=== PATIENT | female | born 1935 | race Caucasian/White ===

== ENCOUNTER → 2018-03-16 | Outpatient (CLI) | payer MEDICARE, BC ==
--- NOTE | 2018-03-16 22:27 | XR ---
EXAMINATION TYPE: XR chest 2V DATE OF EXAM: 03/16/2018 COMPARISON: Chest x-ray November 05, 2013 HISTORY: Extended care facility placement. TECHNIQUE: Frontal and lateral views of the chest are obtained. FINDINGS: There is no focal air space opacity, pleural effusion, or pneumothorax seen. The cardiac silhouette size is stable and enlarged with atherosclerotic change in the aortic knob. The osseous structures are intact. Cholecystectomy clips are redemonstrated on lateral view. IMPRESSION: Cardiomegaly without acute pulmonary process. No significant change from prior study.
== END | disposition home or self-care (01) ==
LOC: RADXRMAIN 16:15
PROVIDERS: ATTEND Family Medicine
DX: Z01.818 Encounter for other preprocedural examination (principal); I51.7 Cardiomegaly
CPT/HCPCS: 71046

== ENCOUNTER 2018-04-09 13:27 | Inpatient (IN) | payer MEDICARE, BC ==
--- NOTE | 2018-04-09 13:35 | ED ---
Altered Mental Status HPI - General Stated Complaint: Poss Sepsis Time Seen by Provider: 04/09/18 13:27 Source: EMS, RN notes reviewed, old records reviewed Mode of arrival: EMS - History of Present Illness Initial Comments: This is a 83-year-old female was brought in by ambulance [facility] a [facility] for evaluation for decreased level of consciousness elevated white blood cell count and low-grade fever. She is new to the nursing facility is unclear what the original problem was at brought her to the [facility]. She does have a history of hypertension history of intercerebral bleed atrial fibrillation chronic renal disease and dementia with a normal mentation. No other information currently available per paramedics she was found to be dyspneic into updrafts was given 125 a slight Medrol. She was also given some IV fluids. MD Complaint: altered mental status, decreased responsiveness - Related Data Home Medications Medication Instructions Recorded Confirmed Metoprolol Tartrate [Lopressor] 25 mg PO BID 11/05/13 04/09/18 ALPRAZolam [Xanax] 0.25 mg PO DAILY PRN 04/09/18 04/09/18 Acetaminophen Tab [Tylenol Tab] 650 mg PO Q6H PRN MDD 3 GRAMS 04/09/18 04/09/18 Amoxicillin/Potassium Clav 1 tab PO Q12HR 04/09/18 04/09/18 [Augmentin 875-125 Tablet] Cholecalciferol [Vitamin D3] 2,000 unit PO HS 04/09/18 04/09/18 Cyanocobalamin (Vitamin B-12) 1,000 mcg PO HS 04/09/18 04/09/18 [Vitamin B-12] Donepezil [Aricept] 10 mg PO HS 04/09/18 04/09/18 Ipratropium-Albuterol Nebulize 3 ml INHALATION RT-Q4H 04/09/18 04/09/18 [Duoneb 0.5 mg-3 mg/3 ml Soln] Losartan Potassium 50 mg PO BID 04/09/18 04/09/18 Melatonin 3 mg PO HS 04/09/18 04/09/18 amLODIPine [Norvasc] 10 mg PO DAILY 04/09/18 04/09/18 cefTRIAXone [Rocephin] 1,000 mg IM ONCE 04/09/18 04/09/18 Allergies Allergy/AdvReac Type Severity Reaction Status Date / Time ciprofloxacin [From Cipro] Allergy Unknown Verified 04/09/18 13:37 memantine [From Namenda] Allergy Unknown Verified 04/09/18 13:37 metronidazole [From Flagyl] Allergy Unknown Verified 04/09/18 13:37 Review of Systems ROS Statement: Those systems with pertinent positive or pertinent negative responses have been documented in the HPI. ROS Other: All systems not noted in ROS Statement are negative. Limitations: ROS unobtainable due to patients medical condition Past Medical History Past Medical History: CVA/TIA, Hypertension, Sleep Apnea/CPAP/BIPAP Additional Past Medical History / Comment(s): BELLS PALSY, History of Any Multi-Drug Resistant Organisms: None Reported Past Surgical History: Appendectomy, Cholecystectomy, Hysterectomy, Orthopedic Surgery, Tonsillectomy Additional Past Surgical History / Comment(s): D&C, CATARACT Smoking Status: Never smoker Past Alcohol Use History: None Reported Past Drug Use History: None Reported General Exam - General Exam Comments Initial Comments: This a well-developed asthenic appearing female who does appear pale General appearance: alert, lethargic Head exam: Present: atraumatic, normocephalic, normal inspection Eye exam: Present: other (Left pupil is irregular compared to the right) ENT exam: Present: mucous membranes dry Neck exam: Present: normal inspection. Absent: tenderness, meningismus, lymphadenopathy Respiratory exam: Present: wheezes, decreased breath sounds (Transmitted upper airway sounds) Cardiovascular Exam: Present: regular rate, normal rhythm GI/Abdominal exam: Present: soft, normal bowel sounds. Absent: distended, tenderness, guarding, rebound, rigid Rectal exam: Present: deferred Extremities exam: Present: full ROM, other (Sluggish capillary refill). Absent : pedal edema Back exam: Present: normal inspection Neurological exam: Present: altered, CN II-XII intact Psychiatric exam: Present: other (Unable to evaluate) Skin exam: Present: pallor Course Vital Signs 04/09/18 04/09/18 04/09/18 13:28 14:00 14:15 Temperature 97 F L Pulse Rate 73 62 Respiratory 22 24 20 Rate Blood Pressure 120/83 100/44 O2 Sat by Pulse 100 100 Oximetry 04/09/18 04/09/18 04/09/18 14:50 15:20 16:21 Temperature Pulse Rate 64 64 78 Respiratory 22 20 18 Rate Blood Pressure 104/49 99/58 137/60 O2 Sat by Pulse 99 99 99 Oximetry - Reevaluation(s) Reevaluation #1: 04/09/18 17:04 Reevaluation patient reveals no change I did have several long discussions the patient's and daughter regarding the findings. She was recently admitted to a [facility] and discharged to the [facility] the past several days. She had some renal insufficiency as the time. Apparently his numbers have improved the. Reevaluation #2: 04/09/18 17:05 EKG shows sinus rhythm first-degree AV block with PACs rate was 74 CO interval 226 QRS duration 174 QT since QTC 442/490 left exodeviation left bundle-branch block Medical Decision Making - Medical Decision Making I did discuss findings with the patient's and daughter patient does have a history of severe dementia she is noted have kidney failure with a creatinine 5.37 leukocytosis with a 65.5 white count BNP of 40,200 troponin 0.181D acid 4.8 no clear source of infectious process at this time though there is some white blood cell and bacteria findings the urine. I did discuss case with Dr. Lawson patient will be admitted consultation will be made nephrology patient has maintained heart rate and blood pressure a elevated lactic acid is likely secondary to the kidney failure - Lab Data Result diagrams: 04/09/18 13:32 04/09/18 13:32 Lab Results 04/09/18 04/09/18 04/09/18 Range/Units 13:29 13:32 13:32 WBC (3.8-10.6) k/uL RBC (3.80-5.40) m/uL Hgb (11.4-16.0) gm/dL Hct (34.0-46.0) % MCV (80.0-100.0) fL MCH (25.0-35.0) pg MCHC (31.0-37.0) g/dL RDW (11.5-15.5) % Plt Count (150-450) k/uL Neutrophils % (Manual) % Band Neutrophils % % Lymphocytes % (Manual) % Monocytes % (Manual) % Metamyelocytes % % Myelocytes % % Neutrophils # (Manual) (1.3-7.7) k/uL Lymphocytes # (Manual) (1.0-4.8) k/uL Monocytes # (Manual) (0-1.0) k/uL Metamyelocytes # (Man) (0) k/uL Myelocytes # (Manual) (0) k/uL Nucleated RBCs (0-0) /100 WBC Manual Slide Review Toxic Granulation Toxic Vacuolation Dohle Bodies Anisocytosis Macrocytosis Sodium (137-145) mmol/L Potassium (3.5-5.1) mmol/L Chloride (98-107) mmol/L Carbon Dioxide (22-30) mmol/L Anion Gap mmol/L BUN (7-17) mg/dL Creatinine (0.52-1.04) mg/dL Est GFR (CKD-EPI)AfAm (>60 ml/min/1.73 sqM) Est GFR (CKD-EPI)NonAf (>60 ml/min/1.73 sqM) Glucose (74-99) mg/dL POC Glucose (mg/dL) 73 L (75-99) mg/dL POC Glu Shirt Bander ID Catrachito So Plasma Lactic Acid Lavon (0.7-2.0) mmol/L Calcium (8.4-10.2) mg/dL Magnesium (1.6-2.3) mg/dL Total Bilirubin (0.2-1.3) mg/dL AST (14-36) U/L ALT (9-52) U/L Alkaline Phosphatase (38-126) U/L Ammonia 9 (<30) umol/L Total Creatine Kinase (30-135) U/L CK-MB (CK-2) (0.0-2.4) ng/mL CK-MB (CK-2) Rel Index Troponin I (0.000-0.034) ng/mL NT-Pro-B Natriuret Pep 57884 pg/mL Total Protein (6.3-8.2) g/dL Albumin (3.5-5.0) g/dL Amylase (30-110) U/L Lipase (23-300) U/L Urine Color Urine Appearance (Clear) Urine pH (5.0-8.0) Ur Specific [place] (1.001-1.035) Urine Protein (Negative) Urine Glucose (UA) (Negative) Urine Ketones (Negative) Urine Blood (Negative) Urine Nitrite (Negative) Urine Bilirubin (Negative) Urine Urobilinogen (<2.0) mg/dL Ur Leukocyte Esterase (Negative) Urine RBC (0-5) /hpf Urine WBC (0-5) /hpf Urine WBC Clumps (None) /hpf Ur Squamous Epith Cells (0-4) /hpf Urine Bacteria (None) /hpf Urine Mucus (None) /hpf Influenza Type A RNA (Not Detectd) Influenza Type B (PCR) (Not Detectd) 04/09/18 04/09/18 04/09/18 Range/Units 13:32 13:32 13:32 WBC 68.5 H* (3.8-10.6) k/uL RBC 3.53 L (3.80-5.40) m/uL Hgb 10.8 L (11.4-16.0) gm/dL Hct 34.9 (34.0-46.0) % MCV 98.9 (80.0-100.0) fL MCH 30.7 (25.0-35.0) pg MCHC 31.1 (31.0-37.0) g/dL RDW 16.9 H (11.5-15.5) % Plt Count 261 (150-450) k/uL Neutrophils % (Manual) 64 % Band Neutrophils % 13 % Lymphocytes % (Manual) 2 % Monocytes % (Manual) 7 % Metamyelocytes % 10 % Myelocytes % 7 % Neutrophils # (Manual) 52.70 H (1.3-7.7) k/uL Lymphocytes # (Manual) 1.37 (1.0-4.8) k/uL Monocytes # (Manual) 4.80 H (0-1.0) k/uL Metamyelocytes # (Man) 6.85 H (0) k/uL Myelocytes # (Manual) 4.80 H (0) k/uL Nucleated RBCs 0 (0-0) /100 WBC Manual Slide Review Performed Toxic Granulation Present Toxic Vacuolation Present Dohle Bodies Present Anisocytosis Slight Macrocytosis Slight Sodium 142 (137-145) mmol/L Potassium 4.2 (3.5-5.1) mmol/L Chloride 108 H (98-107) mmol/L Carbon Dioxide 16 L (22-30) mmol/L Anion Gap 18 mmol/L BUN 76 H (7-17) mg/dL Creatinine 5.37 H (0.52-1.04) mg/dL Est GFR (CKD-EPI)AfAm 8 (>60 ml/min/1.73 sqM) Est GFR (CKD-EPI)NonAf 7 (>60 ml/min/1.73 sqM) Glucose 115 H (74-99) mg/dL POC Glucose (mg/dL) (75-99) mg/dL POC Glu Shirt Bander ID Plasma Lactic Acid Lavon (0.7-2.0) mmol/L Calcium 8.3 L (8.4-10.2) mg/dL Magnesium 1.9 (1.6-2.3) mg/dL Total Bilirubin 3.0 H (0.2-1.3) mg/dL AST 78 H (14-36) U/L ALT 86 H (9-52) U/L Alkaline Phosphatase 132 H (38-126) U/L Ammonia (<30) umol/L Total Creatine Kinase 251 H (30-135) U/L CK-MB (CK-2) 5.0 H (0.0-2.4) ng/mL CK-MB (CK-2) Rel Index 2.0 Troponin I 0.181 H* (0.000-0.034) ng/mL NT-Pro-B Natriuret Pep pg/mL Total Protein 5.8 L (6.3-8.2) g/dL Albumin 3.1 L (3.5-5.0) g/dL Amylase 70 (30-110) U/L Lipase 65 (23-300) U/L Urine Color Urine Appearance (Clear) Urine pH (5.0-8.0) Ur Specific [place] (1.001-1.035) Urine Protein (Negative) Urine Glucose (UA) (Negative) Urine Ketones (Negative) Urine Blood (Negative) Urine Nitrite (Negative) Urine Bilirubin (Negative) Urine Urobilinogen (<2.0) mg/dL Ur Leukocyte Esterase (Negative) Urine RBC (0-5) /hpf Urine WBC (0-5) /hpf Urine WBC Clumps (None) /hpf Ur Squamous Epith Cells (0-4) /hpf Urine Bacteria (None) /hpf Urine Mucus (None) /hpf Influenza Type A RNA (Not Detectd) Influenza Type B (PCR) (Not Detectd) 04/09/18 04/09/18 04/09/18 Range/Units 13:32 13:32 13:32 WBC (3.8-10.6) k/uL RBC (3.80-5.40) m/uL Hgb (11.4-16.0) gm/dL Hct (34.0-46.0) % MCV (80.0-100.0) fL MCH (25.0-35.0) pg MCHC (31.0-37.0) g/dL RDW (11.5-15.5) % Plt Count (150-450) k/uL Neutrophils % (Manual) % Band Neutrophils % % Lymphocytes % (Manual) % Monocytes % (Manual) % Metamyelocytes % % Myelocytes % % Neutrophils # (Manual) (1.3-7.7) k/uL Lymphocytes # (Manual) (1.0-4.8) k/uL Monocytes # (Manual) (0-1.0) k/uL Metamyelocytes # (Man) (0) k/uL Myelocytes # (Manual) (0) k/uL Nucleated RBCs (0-0) /100 WBC Manual Slide Review Toxic Granulation Toxic Vacuolation Dohle Bodies Anisocytosis Macrocytosis Sodium (137-145) mmol/L Potassium (3.5-5.1) mmol/L Chloride (98-107) mmol/L Carbon Dioxide (22-30) mmol/L Anion Gap mmol/L BUN (7-17) mg/dL Creatinine (0.52-1.04) mg/dL Est GFR (CKD-EPI)AfAm (>60 ml/min/1.73 sqM) Est GFR (CKD-EPI)NonAf (>60 ml/min/1.73 sqM) Glucose (74-99) mg/dL POC Glucose (mg/dL) (75-99) mg/dL POC Glu Shirt Bander ID Plasma Lactic Acid Lavon 4.8 H* (0.7-2.0) mmol/L Calcium (8.4-10.2) mg/dL Magnesium (1.6-2.3) mg/dL Total Bilirubin (0.2-1.3) mg/dL AST (14-36) U/L ALT (9-52) U/L Alkaline Phosphatase (38-126) U/L Ammonia (<30) umol/L Total Creatine Kinase (30-135) U/L CK-MB (CK-2) (0.0-2.4) ng/mL CK-MB (CK-2) Rel Index Troponin I (0.000-0.034) ng/mL NT-Pro-B Natriuret Pep pg/mL Total Protein (6.3-8.2) g/dL Albumin (3.5-5.0) g/dL Amylase (30-110) U/L Lipase (23-300) U/L Urine Color Yellow Urine Appearance Cloudy H (Clear) Urine pH 7.5 (5.0-8.0) Ur Specific [place] 1.009 (1.001-1.035) Urine Protein Trace H (Negative) Urine Glucose (UA) Negative (Negative) Urine Ketones Negative (Negative) Urine Blood Moderate H (Negative) Urine Nitrite Negative (Negative) Urine Bilirubin Negative (Negative) Urine Urobilinogen <2.0 (<2.0) mg/dL Ur Leukocyte Esterase Large H (Negative) Urine RBC 27 H (0-5) /hpf Urine WBC 80 H (0-5) /hpf Urine WBC Clumps Moderate H (None) /hpf Ur Squamous Epith Cells <1 (0-4) /hpf Urine Bacteria Moderate H (None) /hpf Urine Mucus Rare H (None) /hpf Influenza Type A RNA Not Detected (Not Detectd) Influenza Type B (PCR) Not Detected (Not Detectd) - EKG Data -: EKG Interpreted by Me (Sinus rhythm first-degree AV block PACs rate was 74. ) - Radiology Data Radiology results: report reviewed (I did review the imaging and report no acute findings.), image reviewed Critical Care Time Critical Care Time: Yes Critical Care Time: 43 minutes of critical care time which includes monitoring EMS run and discussed with paramedics history physical labs x-rays multiple re-evaluations the patient is multiple discussions with the patient's family admission orders documentation of the above Disposition Clinical Impression: Acute renal failure (ARF), Leukocytosis, CHF (congestive heart failure) Disposition: ADMITTED IP TO THIS [facility] Condition: Serious Referrals: Joselito Lawson MD [Primary Care Provider] - 1-2 days
[2018-04-09 13:47] LABS: Glucose,Whole Blood 73 mg/dL (75-99)
--- NOTE | 2018-04-09 14:01 | XR ---
EXAMINATION TYPE: XR chest 1V portable DATE OF EXAM: 04/09/2018 COMPARISON: NONE HISTORY: Weakness and shortness of breath TECHNIQUE: Single frontal view of the chest is obtained. FINDINGS: There is no focal air space opacity, pleural effusion, or pneumothorax seen. The cardiac silhouette size is mildly enlarged. The osseous structures are intact. Cholecystectomy clips are pr esent. There is generalized osseous demineralization. IMPRESSION: No acute process.
[2018-04-09 14:14] LABS: Albumin 3.1 g/dL (3.5-5.0); Calcium 8.3 mg/dL (8.4-10.2); Magnesium 1.9 mg/dL (1.6-2.3); Potassium 4.2 mmol/L (3.5-5.1); Total Protein 5.8 g/dL (6.3-8.2)
[2018-04-09] MEDS ORDERED: SODIUM CHLORIDE 0.9% 2,000 ML IV ONE (14:27)
[2018-04-09 14:35] LABS: Anisocytosis Slight; Appearance,Urine Cloudy (Clear); Bacteria,Urine Moderate /hpf; Bilirubin,Urine Negative (Negative); Blood,Urine Moderate (Negative); Color,Urine Yellow; Glucose,Urine (UA) Negative (Negative); HCT 34.9 % (34.0-46.0); HGB 10.8 gm/dL (11.4-16.0); Ketones,Urine Negative (Negative); Leukocyte Esterase,Urine Large (Negative); MCH 30.7 pg (25.0-35.0); MCHC 31.1 g/dL (31.0-37.0); MCV 98.9 fL (80.0-100.0); Macrocytosis Slight; Mean Platelet Volume 11.2; Mucus,Urine Rare /hpf; Nitrite,Urine Negative (Negative); PH, Urine 7.5 (5.0-8.0); Platelet Count 261 k/uL (150-450); Protein,Urine Trace (Negative); RBC 3.53 m/uL (3.80-5.40); RBC,Urine 27 /hpf (0-5); RDW 16.9 % (11.5-15.5); Specific Gravity,Urine 1.009 (1.001-1.035); Squamous Epithelial Cell,Urine <1 /hpf (0-4); Urobilinogen,Urine <2.0 mg/dL (<2.0); WBC,Urine 80 /hpf (0-5)
[2018-04-09 14:40] LABS: WBC 68.5 k/uL (3.8-10.6)
[2018-04-09 14:48] LABS: Troponin I 0.181 ng/mL (0.000-0.034)
[2018-04-09 14:56] LABS: Band Neutrophils % 13 %; Dohle Bodies Present; Lymphocytes # (M) 1.37 k/uL (1.0-4.8); Metamyelocytes # (M) 6.85 k/uL (0); Metamyelocytes % 10 %; Myelocytes % 7 %; Neutrophils % (M) 64 %; Nucleated Red Blood Cells 0 /100 WBC (0-0); Total Cells Counted 200; Toxic Granulation Present; Toxic Vacuolation Present
[2018-04-09] MEDS ORDERED: SODIUM CHLORIDE 0.9% 1,000 ML IV STA (15:12)
[2018-04-09] MEDS ORDERED: ACETAMINOPHEN TAB 325 MG TAB PO PRN (17:14)
[2018-04-09] MEDS ORDERED: FUROSEMIDE 10 MG/ML 4 ML VIAL IV SCH (18:00)
[2018-04-09] MEDS: IPRATROPIUM-ALBUTEROL 3 ML NEB INHALATION SCH (20:29)
[2018-04-09] MEDS ORDERED: LOSARTAN 50 MG TAB PO SCH (21:00)
[2018-04-09] MEDS: METOPROLOL TARTRATE 25 MG TAB PO SCH (22:03)
[2018-04-09] MEDS: MELATONIN 3 MG TABLET PO SCH (22:04)
[2018-04-09] MEDS: DONEPEZIL 10 MG TAB PO SCH (22:05)
[2018-04-09] MEDS: CYANOCOBALAMIN 500 MCG TAB PO SCH (22:06)
[2018-04-09] MEDS: CHOLECALCIFEROL 1,000 UNIT TAB PO SCH (22:07)
[2018-04-10 00:27] LABS: HCT 32.5 % (34.0-46.0); HGB 10.7 gm/dL (11.4-16.0); MCH 29.8 pg (25.0-35.0); Mean Platelet Volume 8.2; Platelet Count 220 k/uL (150-450); RDW 13.4 % (11.5-15.5)
[2018-04-10] MEDS: IPRATROPIUM-ALBUTEROL 3 ML NEB INHALATION SCH ×7 (00:28→23:58)
[2018-04-10 00:32] LABS: WBC 61.2 k/uL (3.8-10.6)
[2018-04-10 00:33] LABS: MCV 90.3 fL (80.0-100.0)
[2018-04-10 01:16] LABS: Band Neutrophils % 22 %; Metamyelocytes # (M) 3.06 k/uL (0); Metamyelocytes % 5 %; Neutrophils % (M) 73 %; Nucleated Red Blood Cells 0 /100 WBC (0-0); Total Cells Counted 200; Toxic Granulation Present; Toxic Vacuolation Present
[2018-04-10 01:21] LABS: ABG HCO3 18 mmol/L (21-25); ABG Oxygen Saturation 98.5 % (94-97); ABG PCO2 33 mmHg (35-45); ABG PH 7.34 (7.35-7.45); ABG PO2 95 mmHg (83-108); ABG TCO2 19 mmol/L (19-24)
[2018-04-10] MEDS ORDERED: FUROSEMIDE 10 MG/ML 10 ML VIAL IV STA (01:47)
[2018-04-10] MEDS: PIPERACILLIN-TAZOBACTAM 3.375 GM in DEXTROSE/WATER 1 50ML.BAG IVPB SCH ×3 (02:08→18:53)
--- NOTE | 2018-04-10 02:12 | CT ---
EXAMINATION TYPE: CT brain wo con DATE OF EXAM: 04/10/2018 COMPARISON: None HISTORY: decreased LOC CT DLP: 959.00 mGycm Automated exposure control for dose reduction was used. FINDINGS: There is enlargement of the ventricles. There is cerebral cortical atrophy. There is no mass effect n or midline shift. There is no sign of intracranial hemorrhage. Calvarium is intact. There is hypodens ity in the periventricular white matter. IMPRESSION: CEREBRAL ATROPHY AND MODERATE HYDROCEPHALUS. WHITE MATTER CHANGES CONSISTENT WITH CHRONIC SMALL VESSE L ISCHEMIA. NO ACUTE INTRACRANIAL ABNORMALITY.
[2018-04-10 03:00] LABS: Glucose,Whole Blood 139 mg/dL (75-99)
[2018-04-10 05:08] LABS: HCT 31.9 % (34.0-46.0); HGB 10.3 gm/dL (11.4-16.0); Hypochromasia Marked; MCH 30.1 pg (25.0-35.0); MCHC 32.4 g/dL (31.0-37.0); MCV 92.9 fL (80.0-100.0); Mean Platelet Volume 9.5; Platelet Count 240 k/uL (150-450); RBC 3.44 m/uL (3.80-5.40); RDW 14.7 % (11.5-15.5)
[2018-04-10 05:22] LABS: WBC 56.6 k/uL (3.8-10.6)
[2018-04-10 05:57] LABS: Band Neutrophils % 19 %; Lymphocytes # (M) 0.57 k/uL (1.0-4.8); Metamyelocytes # (M) 0.57 k/uL (0); Metamyelocytes % 1 %; Monocytes # (M) 0.57 k/uL (0-1.0); Neutrophils % (M) 78 %; Nucleated Red Blood Cells 0 /100 WBC (0-0); Total Cells Counted 200
[2018-04-10 05:59] LABS: Toxic Granulation Present; Toxic Vacuolation Present
--- NOTE | 2018-04-10 06:41 | XR ---
EXAMINATION TYPE: XR chest 1V DATE OF EXAM: 04/10/2018 HISTORY: Shortness of Breath . REFERENCE: Previous study dated 04/09/2018. FINDINGS: Heart size is upper limits of normal. The lungs appear clear. Pleural spaces are clear. IMPRESSION: BORDERLINE CARDIOMEGALY.
[2018-04-10 06:57] LABS: Magnesium 2.1 mg/dL (1.6-2.3); Potassium 3.9 mmol/L (3.5-5.1)
[2018-04-10] MEDS ORDERED: FUROSEMIDE 10 MG/ML 4 ML VIAL IV SCH (09:00)
[2018-04-10] MEDS: METOPROLOL TARTRATE 25 MG TAB PO SCH ×2 (09:33→21:17)
[2018-04-10] MEDS: amLODIPine 10 MG TAB PO SCH (09:33)
--- NOTE | 2018-04-10 10:28 | P.CNPUL ---
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 The patient apparently was reported to have some low-grade fever. Otherwise normal and there have normally more information no more information is available on this patient. In the emergency department, the patient was found to have an elevated white count in the 60,000 range. The patient had bandemia. Urinalysis was suggestive of underlying UTI. She did have some metabolic acidosis and the blood scan showed a pH of 7.34 with a pCO2 of 33 and pO2 of 95 on an FiO2 of 28%. There was some lactic acidosis. Lactic acid level was initially in the 4.5 range and dropped down to 2.2. The patient's serum bicarbonate was 26 and dropped down to 16 and this morning she is at 15. We had a normal renal functions patient back in November 2013. Creatinine was at 5.3 as dropped down to 4.2. She has a Yost catheter in place. She was given a total of 2 L of IV fluid and she was given IV antibiotics which included IV Zosyn. She is on 2 L of oxygen by nasal cannula and his saturations around 99% to chest x-ray shows no acute abnormalities. 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 Review of Systems The patient is a very poor historian. She has underlying dementia. She is a custodial resident. She is more like a [employer] no person. MRI of the brain that was done back in 2014 showed extensive white matter changes secondary to small vessel disease. No evidence of any infarct back then. ROS unobtainable: due to mental status Past Medical History Past Medical History: CVA/TIA, Hypertension, Sleep Apnea/CPAP/BIPAP Additional Past Medical History / Comment(s): BELLS PALSY, History of Any Multi-Drug Resistant Organisms: None Reported Past Surgical History: Appendectomy, Cholecystectomy, Hysterectomy, Orthopedic Surgery, Tonsillectomy Additional Past Surgical History / Comment(s): D&C, CATARACT Smoking Status: Unknown if ever smoked Medications and Allergies Home Medications Medication Instructions Recorded Confirmed Type Metoprolol Tartrate [Lopressor] 25 mg PO BID 11/05/13 04/09/18 History ALPRAZolam [Xanax] 0.25 mg PO DAILY PRN 04/09/18 04/09/18 History Acetaminophen Tab [Tylenol Tab] 650 mg PO Q6H PRN MDD 3 GRAMS 04/09/18 04/09/18 History Amoxicillin/Potassium Clav 1 tab PO Q12HR 04/09/18 04/09/18 History [Augmentin 875-125 Tablet] Cholecalciferol [Vitamin D3] 2,000 unit PO HS 04/09/18 04/09/18 History Cyanocobalamin (Vitamin B-12) 1,000 mcg PO HS 04/09/18 04/09/18 History [Vitamin B-12] Donepezil [Aricept] 10 mg PO HS 04/09/18 04/09/18 History Ipratropium-Albuterol Nebulize 3 ml INHALATION RT-Q4H 04/09/18 04/09/18 History [Duoneb 0.5 mg-3 mg/3 ml Soln] Losartan Potassium 50 mg PO BID 04/09/18 04/09/18 History Melatonin 3 mg PO HS 04/09/18 04/09/18 History amLODIPine [Norvasc] 10 mg PO DAILY 04/09/18 04/09/18 History cefTRIAXone [Rocephin] 1,000 mg IM ONCE 04/09/18 04/09/18 History Allergies Allergy/AdvReac Type Severity Reaction Status Date / Time ciprofloxacin [From Cipro] Allergy Unknown Verified 04/09/18 13:37 memantine [From Namenda] Allergy Unknown Verified 04/09/18 13:37 metronidazole [From Flagyl] Allergy Unknown Verified 04/09/18 13:37 Physical Exam Vitals: Vital Signs Temp Pulse Pulse Resp BP BP Pulse Ox 04/10/18 09:00 70 16 140/50 100 04/10/18 08:30 63 20 145/51 04/10/18 08:00 98.6 F 70 13 137/56 100 04/10/18 07:30 57 L 04/10/18 07:00 71 25 H 134/41 100 04/10/18 06:30 57 L 04/10/18 06:00 59 L 22 141/56 100 04/10/18 05:30 63 04/10/18 05:00 67 21 109/47 100 04/10/18 04:52 68 04/10/18 04:45 69 04/10/18 04:30 65 04/10/18 04:00 97.1 F L 72 24 136/46 100 04/10/18 03:30 64 22 100 04/10/18 03:00 68 23 134/62 100 04/10/18 02:56 65 24 100 04/10/18 02:11 98.2 F 79 24 127/62 96 04/10/18 01:03 88 04/10/18 00:31 88 04/10/18 00:14 98.4 F 66 28 H 111/63 98 04/10/18 00:00 66 28 H 04/09/18 21:50 92 24 133/62 98 04/09/18 20:39 79 04/09/18 20:33 76 24 127/60 100 04/09/18 20:31 83 04/09/18 18:47 82 16 137/64 97 04/09/18 17:20 70 16 133/62 99 04/09/18 16:21 78 18 137/60 99 04/09/18 15:20 64 20 99/58 99 04/09/18 14:50 64 22 104/49 99 04/09/18 14:15 62 20 100/44 100 04/09/18 14:00 24 04/09/18 13:28 97 F L 73 22 120/83 100 Intake and Output 04/09/18 04/10/18 04/10/18 22:59 06:59 14:59 Intake Total 640 60 Output Total 130 280 Balance 510 -220 Intake: IV 140 60 Piperacillin-Tazobactam 3 50 .375 gm In Dextrose/Water 1 50ml.bag @ 12.5 mls/hr IVPB Q8H GUILLE Rx#: [id number] Sodium Chloride 0.9% 1, 90 60 000 ml @ 50 mls/hr IV . Q20H STA Rx#:[id number] Amount of Fluid Infused ( 500 ml) Output: Urine 130 280 Other: Voiding Method Indwelling Catheter Indwelling Catheter Weight 63 kg General appearance: lethargic Head exam: Present: atraumatic, normocephalic, normal inspection Eye exam: Present: other (Left pupil is irregular compared to the right) ENT exam: Present: mucous membranes dry Neck exam: Present: normal inspection. Absent: tenderness, meningismus, lymphadenopathy, there are no neck veins Respiratory exam: Present: There are no wheezing, decreased breath sounds ( Transmitted upper airway sounds) Cardiovascular Exam: Present: regular rate, normal rhythm GI/Abdominal exam: Present: soft, normal bowel sounds. Absent: distended, tenderness, guarding, rebound, rigid Rectal exam: Present: deferred Extremities exam: Present: full ROM, other (Sluggish capillary refill). Absent : pedal edema Back exam: Present: normal inspection Neurological exam: Present: altered, CN II-XII intact, moving all 4 extremities without any limitation. She has underlying dementia. She is a poor historian and she has cognitive impairment. Psychiatric exam: Present: other (Unable to evaluate) Skin exam: Present: pallor Results - Laboratory Findings CBC and BMP: 04/10/18 04:47 04/10/18 05:53 ABG ABG pH 7.34 (7.35-7.45) L 04/10/18 01:17 ABG pCO2 33 mmHg (35-45) L 04/10/18 01:17 ABG pO2 95 mmHg (83-108) 04/10/18 01:17 ABG O2 Saturation 98.5 % (94-97) H 04/10/18 01:17 Abnormal lab findings: Abnormal Labs 04/09/18 04/09/18 04/09/18 13:29 13:32 13:32 WBC RBC Hgb Hct RDW Neutrophils # (Manual) Lymphocytes # (Manual) Monocytes # (Manual) Metamyelocytes # (Man) Myelocytes # (Manual) ABG pH ABG pCO2 ABG HCO3 ABG O2 Saturation Chloride 108 H Carbon Dioxide 16 L BUN 76 H Creatinine 5.37 H Glucose 115 H POC Glucose (mg/dL) 73 L Plasma Lactic Acid Lavon Calcium 8.3 L Total Bilirubin 3.0 H AST 78 H ALT 86 H Alkaline Phosphatase 132 H Total Creatine Kinase 251 H CK-MB (CK-2) 5.0 H Troponin I 0.181 H* Total Protein 5.8 L Albumin 3.1 L Urine Appearance Urine Protein Urine Blood Ur Leukocyte Esterase Urine RBC Urine WBC Urine WBC Clumps Urine Bacteria Urine Mucus 04/09/18 04/09/18 04/09/18 13:32 13:32 13:32 WBC 68.5 H* RBC 3.53 L Hgb 10.8 L Hct RDW 16.9 H Neutrophils # (Manual) 52.70 H Lymphocytes # (Manual) Monocytes # (Manual) 4.80 H Metamyelocytes # (Man) 6.85 H Myelocytes # (Manual) 4.80 H ABG pH ABG pCO2 ABG HCO3 ABG O2 Saturation Chloride Carbon Dioxide BUN Creatinine Glucose POC Glucose (mg/dL) Plasma Lactic Acid Lavon 4.8 H* Calcium Total Bilirubin AST ALT Alkaline Phosphatase Total Creatine Kinase CK-MB (CK-2) Troponin I Total Protein Albumin Urine Appearance Cloudy H Urine Protein Trace H Urine Blood Moderate H Ur Leukocyte Esterase Large H Urine RBC 27 H Urine WBC 80 H Urine WBC Clumps Moderate H Urine Bacteria Moderate H Urine Mucus Rare H 04/09/18 04/10/18 04/10/18 18:16 00:11 00:11 WBC 61.2 H* RBC 3.60 L Hgb 10.7 L Hct 32.5 L RDW Neutrophils # (Manual) 58.10 H Lymphocytes # (Manual) Monocytes # (Manual) Metamyelocytes # (Man) 3.06 H Myelocytes # (Manual) ABG pH ABG pCO2 ABG HCO3 ABG O2 Saturation Chloride Carbon Dioxide BUN Creatinine Glucose POC Glucose (mg/dL) Plasma Lactic Acid Lavon 2.8 H* 2.9 H* Calcium Total Bilirubin AST ALT Alkaline Phosphatase Total Creatine Kinase CK-MB (CK-2) Troponin I Total Protein Albumin Urine Appearance Urine Protein Urine Blood Ur Leukocyte Esterase Urine RBC Urine WBC Urine WBC Clumps Urine Bacteria Urine Mucus 04/10/18 04/10/18 04/10/18 01:17 02:50 04:47 WBC RBC Hgb Hct RDW Neutrophils # (Manual) Lymphocytes # (Manual) Monocytes # (Manual) Metamyelocytes # (Man) Myelocytes # (Manual) ABG pH 7.34 L ABG pCO2 33 L ABG HCO3 18 L ABG O2 Saturation 98.5 H Chloride Carbon Dioxide BUN Creatinine Glucose POC Glucose (mg/dL) 139 H Plasma Lactic Acid Lavon 2.2 H* Calcium Total Bilirubin AST ALT Alkaline Phosphatase Total Creatine Kinase CK-MB (CK-2) Troponin I Total Protein Albumin Urine Appearance Urine Protein Urine Blood Ur Leukocyte Esterase Urine RBC Urine WBC Urine WBC Clumps Urine Bacteria Urine Mucus 04/10/18 04/10/18 04:47 05:53 WBC 56.6 H* RBC 3.44 L Hgb 10.3 L Hct 31.9 L RDW Neutrophils # (Manual) 54.90 H Lymphocytes # (Manual) 0.57 L Monocytes # (Manual) Metamyelocytes # (Man) 0.57 H Myelocytes # (Manual) ABG pH ABG pCO2 ABG HCO3 ABG O2 Saturation Chloride 115 H Carbon Dioxide 15 L BUN 87 H Creatinine 4.27 H Glucose 148 H POC Glucose (mg/dL) Plasma Lactic Acid Lavon Calcium 8.0 L Total Bilirubin AST ALT Alkaline Phosphatase Total Creatine Kinase CK-MB (CK-2) Troponin I Total Protein Albumin Urine Appearance Urine Protein Urine Blood Ur Leukocyte Esterase Urine RBC Urine WBC Urine WBC Clumps Urine Bacteria Urine Mucus - Diagnostic Findings Chest x-ray: image reviewed Assessment and Plan Plan: Assessment 1 sepsis secondary to a urinary tract infection. Pneumonia is doubtful. 2 acute leukocytosis, likely a leukemoid reaction related to an underlying infection 3 acute kidney injury, likely secondary to intravascular volume depletion/sepsis , and the patient is producing adequate amount of urine output and the renal function is improving with fluid resuscitation. The patient already received 2 L of IV fluid . Ultrasound the kidneys are to follow 4 anion gap metabolic acidosis, lactic acid was at 4.5 and dropped down to 2.2 5 CHF, suspected based on elevated proBNP. Echo is to follow 6 shortness of breath secondary to above. 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 She has switched IV fluids to D5 with 150 mEq of bicarb at the rate of 100 mL an hour to counteract the metabolic acidosis which is a combination of anion gap and non-anion gap metabolic acidosis. Monitor the renal function. Creatinine is improving. Obtain urine cultures. Obtain blood cultures. IV Zosyn. Fluid resuscitation watch for any signs of fluid overload. Obtain echocardiogram. I think the patient should be able to handle her with nicely is only as there is no signs of any pulmonary edema or fluid overload. The patient will have her white cell coming monitored. The white cell count is elevated with bandemia and this is probably an acute leukemoid reaction in his sedation with underlying infection and sepsis. The patient will be off her DVT and GI prophylaxis. We'll continue monitoring this patient here in ICU move her out once the condition is more stable. Yost catheter is in place.
[2018-04-10] MEDS ORDERED: WATER FOR INJECTION, STERILE 1,000 ML with SODIUM ACETATE 150 MEQ IV SCH ×2 (10:30)
--- NOTE | 2018-04-10 10:58 | US ---
EXAMINATION TYPE: US kidneys/renal and bladder DATE OF EXAM: 04/10/2018 COMPARISON: NONE CLINICAL HISTORY: rf. ICU patient sleeping during US exam, and technologist was unable to fully awake n patient for change of positions or respiratory cessations during US. EXAM MEASUREMENTS: Right Kidney: 9.7 x 4.3 x 4.6 cm Left Kidney: 8.9 x 5.4 x 5.7 cm Post Void Residual Volume: not assessed with urinary catheter present Right Kidney: complex cyst noted lower pole = 1.3 x 1.2 x 1.2cm Left Kidney: mid sinus fluid is noted Bladder: urinary catheter is noted within IMPRESSION: 1. COMPLEX CYST IN THE LOWER POLE OF THE RIGHT KIDNEY. THIS COULD BE FURTHER INVESTIGATED WITH MRI OR CT. 2. MILD FULLNESS OF THE LEFT RENAL PELVIS WITHOUT HYDRONEPHROSIS.
[2018-04-10] MEDS: SODIUM BICARBONATE 150 MEQ in DEXTROSE 5% IN WATER 1,000 ML IV SCH ×2 (11:35)
[2018-04-10] MEDS: HEPARIN SODIUM,PORCINE 5,000 UNIT/ML 1 ML VIAL SQ SCH ×2 (11:35→16:58)
[2018-04-10] MEDS: PANTOPRAZOLE 40 MG/10 ML VIAL IVP SCH (11:35)
[2018-04-10] MEDS: SODIUM BICARBONATE TAB 650 MG TAB PO SCH ×2 (11:36→21:17)
--- NOTE | 2018-04-10 14:40 | ECHOF ---
Referral Reason:chf, elevated BNP MEASUREMENTS -------- HEIGHT: 157.5 cm WEIGHT: 72.1 kg BP: IVSd: 1.3 cm (0.6 - 1.1) LVIDd: 5.2 cm (3.9 - 5.3) LVPWd: 1.4 cm (0.6 - 1.1) IVSs: 1.4 cm LVIDs: 4.5 cm LVPWs: 1.3 cm Ao Diam: 3.3 cm (2.0 - 3.7) AV Cusp: 1.9 cm (1.5 - 2.6) LA Diam: 3.5 cm (2.7 - 3.8) MV EXCURSION: 20.130 mm (> 18.000) MV EF SLOPE: 69 mm/s (70 - 150) EPSS: 2.3 cm MV E Mu: 0.36 m/s MV DecT: 283 ms MV A Mu: 0.89 m/s MV E/A Ratio: 0.40 RAP: 5.00 mmHg RVSP: 20.60 mmHg FINDINGS -------- BBB This was a technically adequate study. The left ventricular size is normal. There is mild concentric left ventricular hypertrophy. There is moderate global hypokinesis of LV . Overall left ventricular systolic function is severely impa ired with, an EF between 20 - 25 %. The right ventricle is normal in size. The left atrial size is normal. The right atrial size is normal. The aortic valve is trileaflet, and appears structurally normal. No aortic stenosis or regurgitation. Mild mitral annular calcification present. Mild mitral regurgitation is present. Mild tricuspid regurgitation present. There is no evidence of pulmonary hypertension. The right v entricular systolic pressure, as measured by Doppler, is 20.60mmHg. There is no pulmonic regurgitation present. The aortic root size is normal. There is no pericardial effusion. CONCLUSIONS -------- 1. The left ventricular size is normal. 2. There is mild concentric left ventricular hypertrophy. 3. There is moderate global hypokinesis of LV . 4. Overall left ventricular systolic function is severely impaired with, an EF between 20 - 25 %. 5. The right ventricle is normal in size. 6. The left atrial size is normal. 7. The right atrial size is normal. 8. The aortic valve is trileaflet, and appears structurally normal. No aortic stenosis or regurgitati on. 9. Mild mitral annular calcification present. 10. Mild mitral regurgitation is present. 11. Mild tricuspid regurgitation present. 12. There is no evidence of pulmonary hypertension. 13. The right ventricular systolic pressure, as measured by Doppler, is 20.60mmHg. 14. There is no pulmonic regurgitation present. 15. The aortic root size is normal. 16. There is no pericardial effusion. DRYING OVEN ATTENDANT: Tatyana Marino RDCS
--- NOTE | 2018-04-10 15:15 | CONS ---
CONSULTATION REASON FOR CONSULT: Renal failure. HISTORY OF PRESENT ILLNESS: The patient is an 83-year-old female who was admitted to the hospital yesterday with complaints of altered mental status. Patient also had a low-grade fever. She was just discharged to [facility] a couple of days prior to this admission. When patient was on the floor, she developed increasing shortness of breath. She had received initial 40 mg of Lasix IV followed by another 60 mg dose. Patient was brought into the ICU, as her lactic acid was found to be elevated. She received 2 L fluid boluses. According to nursing staff, her breathing has improved. Initially she did not have much urine; however, now the urine output has picked up to about 140 to 75 mL/hour. Patient is maintained on empiric antibiotics. Her lactic acid is down to 2.2. Serum creatinine was 5.3 mg/dL on admission. Previous creatinine on 08/14/2014 was 0.98. Patient has an indwelling Yost catheter. Her white cell count is 56,000. PAST MEDICAL HISTORY: Significant for: 1. CVA, TIA. 2. Hypertension. 3. Obstructive sleep apnea. 4. History of Oscar's palsy. 5. Recent decline in ability to manage on her own. Patient was recently discharged to [facility]. PAST SURGICAL HISTORY: 1. Appendectomy. 2. Cholecystectomy. 3. Hysterectomy. 4. Tonsillectomy. 5. Cataract surgery. 6. D&C. SOCIAL HISTORY: Negative for smoking, drug abuse or alcohol abuse. MEDICATIONS: Medications prior to admission included: 1. Lopressor. 2. Xanax. 3. Tylenol. 4. Augmentin. 5. Vitamin D3. 6. Aricept. 7. Norvasc. 8. Rocephin. 9. Melatonin. 10.Losartan. ALLERGIES: ALLERGIES include: 1. CIPRO. 2. NAMENDA. 3. FLAGYL. REVIEW OF SYSTEMS: As per HPI. Other systems negative. No evidence of bleeding, diarrhea, nausea, vomiting. Mentation seems to have improved. PHYSICAL EXAMINATION: Blood pressure was 137/56, heart rate 70 per minute. She is afebrile. EXAMINATION OF THE HEART: S1, S2. EXAMINATION OF LUNGS: Bilateral breath sounds are heard. ABDOMEN: Soft, non-tender. Examination of lower extremities shows no significant edema. 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 She did respond to her name and answered one question. She does not know where she is at this time. This is apparently much improved from last night. LABS: Labs this morning show sodium 145, potassium 3.9, chloride 115. CO2 is 15, BUN 87, serum creatinine 4.27, hemoglobin 10.3, white cell count 56.6. UA shows trace protein, WBC clumps, moderate WBCs 80. Chest x-ray from today shows borderline cardiomegaly. No pulmonary vascular congestion is documented. ASSESSMENT: 1. Acute kidney injury; appears to be acute tubular necrosis associated with sepsis and possible hypovolemia. Currently patient has good urine output. She has received a dose of Lasix and has received about 2 L of fluid bolus as well. She has not been hypotensive. I will hold off on the Lasix for now and we will continue to avoid nephrotoxic medications. We will check an ultrasound of the kidneys as well. 2. Sepsis from urinary tract infection, maintained on empiric antibiotics. Urine culture is pending. 3. Metabolic acidosis secondary to lactic acidosis and renal failure. Will maintain patient on oral sodium bicarb. 4. Hypertension, controlled. May continue with the Norvas. PLAN: Continue antibiotics. Hold off on diuretics. Check ultrasound of the kidneys. Check echocardiogram if not done recently. Thank you for this consultation. We will continue to follow the patient with you during her hospitalization. MMODL / IJN: [id number] /
--- NOTE | 2018-04-10 17:15 | HP ---
HISTORY AND PHYSICAL CHIEF COMPLAINT: 83-year-old white female, history of prior stroke, congestive heart failure, sleep apnea, hypertension, sent to the hospital for altered mental status. She was found to have a white count of significant nature over 50,000 and significant metabolic acidosis, admitted to the ICU with elevated lactic acid 4.5. She was given fluids overnight and treated with IV antibiotics for a presumptive UTI due to significant abnormal UA. CT scan of the head showed normal-pressure hydrocephalus of moderate amount. REVIEW OF SYMPTOMS: 14-point review of systems is negative as she is a poor historian. She is sleepy, lethargic, but she does give some appropriate answers. She has dementia. PAST MEDICAL HISTORY: As mentioned above. PAST SURGICAL HISTORY: Appendectomy, cholecystectomy, hysterectomy, orthopedic surgery, tonsillectomy, D and C, cataracts. MEDICATIONS INCLUDE: Metoprolol 25 b.i.d., Xanax 0.5 daily. She is on IV Zosyn at this time, Aricept 10 mg daily. DuoNeb q.4 hours p.r.n., losartan 50 b.i.d. Norvasc 10 mg daily. ALLERGIES: Negative. PHYSICAL EXAMINATION: Temp 98.6, pulse 60s to 70s, respiratory 16-20, blood pressure is 140s to 130s over 60s to 70s. O2 100% on room air. Cardiovascular S1, S2. LUNGS: Transmitted upper sounds. Hematology negative Homans. Psych fair mood and affect. Ophthalmological: Pupils equal, round, react to light and accommodation. Psych: She is sleepy, lethargic. Skin warm and dry. LABORATORY DATA: White count as mentioned is , hemoglobin 10.3, BUN 87, creatinine 4.27. Labs are reviewed. She has elevated troponin 0.181. Albumin 3.1, CO2 16, lactic acid on admission 4.8, now down to 2. UA shows 8+ white cells, 27 red cells. ASSESSMENT: 1. Urosepsis leukocytosis possibly leukemoid reaction secondary to urosepsis. 2. Acute kidney injury due to significant dehydration and sepsis. She gets 2 L fluid overnight. Lactic acids are already cut in half. Ultrasound of the kidneys show possible complex cyst in the right kidney. 3. Metabolic acidosis. 4. Systolic congestive heart failure due to echo showing 20 to 25% ejection fraction. No signs of fluid overload. 5. She appears dehydrated. 6. Dementia. 7. Hydrocephalus. 8. Hypertension. 9. Cerebrovascular accident. 10.Oscar's palsy. Continue broad-spectrum antibiotics, fluids, await multiple consults. Prognosis is guarded, but she should improve slowly with rehydration with kidney injury, acute kidney injury should improve as well as her leukemoid reaction. Please see further orders. MMODL / IJN: [id number] /
--- NOTE | 2018-04-10 18:36 | CONS ---
GOOD Arteaga is an 83-year-old lady with history of COPD, dementia, CVA, hypertension, cardiomyopathy, who presented to hospital with altered sensorium and elevated white cell count and also has low-grade fever. Cardiology had been consulted because of because of possible congestive heart failure. The patient appears obtunded. She is in sinus rhythm. Hemodynamically stable and I am not able to obtain any information from her. She has elevated lactic acid, which is improving. She has chronic renal insufficiency. Her chest x-ray does not reveal any congestion. On her initial presentation she apparently was congested and received IV Lasix. PAST MEDICAL HISTORY: Significant for severe dementia, cardiomyopathy, CVA, hypertension, sleep apnea. CURRENT MEDICATIONS: Include Lopressor 25 b.i.d., Xanax, Tylenol, Augmentin, vitamin D, vitamin B, Aricept, DuoNeb, losartan, Norvasc, and Rocephin. THE PATIENT IS ALLERGIC TO CIPRO NAMENDA AND FLAGYL. FAMILY HISTORY/SOCIAL HISTORY: Unable to obtain from the patient. REVIEW OF SYSTEMS: I am unable to obtain from the patient. PHYSICAL EXAMINATION: On exam, heart rate is 60 beats per minute, blood pressure is 133/54, O2 sat is 100% on 2 L. there is no jugular venous distention. Chest exam reveals diminished air entry at the bases. I do not hear any crackles or rhonchi. Heart exam reveals first and second heart sounds and a systolic murmur at the left lower sternal border. Abdomen is soft. Exam of extremities reveals trace edema. Peripheral pulses are felt. LABS: Show a white cell count of 56, potassium 3.9, creatinine is 4.5. Her baseline creatinine is 0.98. EKG shows sinus rhythm with left bundle branch block. ASSESSMENT: 1. Confusion, altered sensorium, probably secondary to sepsis related urinary tract infection. 2. History of cardiomyopathy. 3. Hypertension. 4. Dementia. PLAN: I will obtain a 2D echo to document her LV function. Continue the Norvasc for optimal blood pressure control. Continue the metoprolol that she was on. She is not in congestive heart failure on this admission. We will follow her with interest. MMODL / IJN: [id number] /
--- NOTE | 2018-04-10 18:39 | P.CNNES ---
History of Present Illness Consult date: 04/10/18 Reason for Consult: Patient admitted with sepsis and altered mental status. History of Present Illness: This patient is a 83-year-old right-handed white female who was brought in from [facility] after she was found to be quite confused and disoriented there yesterday. Patient was transferred by EMS to the emergency room at [facility] yesterday evening for evaluation. Patient was evaluated in the ER by Dr. Biggs. Apparently she remained quite lethargic and obtunded in the ER initially and was found to have evidence of a very elevated white count in the range of 60,000. She was started on Zosyn and admitted to the hospital for further evaluation. The patient was initially admitted to the medical floor however she became more lethargic and hard to arouse. This morning she was sent for a computed tomography scan of the brain on 04/10/2018. CAT scan reveals cerebral atrophy and moderate hydrocephalus. There was white matter changes consistent with chronic small vessel ischemic changes. No other acute abnormality was detected. Patient was transferred to the intensive care unit where she was examined this afternoon. She is somewhat more awake and alert according to her daughter who is at bedside. She was very lethargic at the detention yesterday and this was the main reason for admission. According to the daughter the patient was admitted to [facility] about one week ago for similar symptoms of altered mental status and confusion. She underwent an extensive workup at [facility] and was seen in neurology consultation by Dr. Nath. A MRI of the brain was completed for her on 04/02/2018. This MRI revealed a 1 cm focus in the left lateral ventricle suggesting early subacute intraventricular hemorrhage. There was also some layering of blood in the occipital horns of the lateral ventricles again suggesting possibility of blood and intraventricular hemorrhage. There was evidence on the MRI of mild to moderate hydrocephalus. This was felt to be secondary to ex vacuo enlargement due to the degree of central atrophy. According to the daughter the MRI results were reviewed with her and her as well as with Dr. Joselito Lawson. Decision was made for conservative line of management and no further heroic measures to be done for her. Obviously there was no severe intraventricular intracerebral hemorrhage that required neurosurgical consultation at the time. She was then transferred to [facility] in [place] where she has been slowly undergoing subacute rehabilitation. The patient has a rather extensive past medical history including severe dementia, obstructive sleep apnea, acute renal failure, congestive heart failure, and hypertension. On admission yesterday she was found to have evidence of a urinary tract infection. Her serum creatinine was also very elevated at 5.37. Today the creatinine is come down slightly and is 4.27. Nephrology has been consulted for further evaluation. Patient's blood cultures were drawn yesterday but are still pending. The patient is much more awake and alert today in the intensive care unit according to the daughter who is at bedside. She does recognize her daughter somewhat but still has difficulty getting her name. According to the daughter she seems to be coming closer to her baseline level of function in terms of her cognition as compared to the time of her admission. The patient denies any headache at this time. She does have some degree of abdominal pain and this is being further evaluated by infectious disease as clear source of her underlying sepsis as yet undetermined. Patient is moving all 4 extremities. As noted CAT scan of the brain performed today failed to reveal any evidence of intracerebral hemorrhage or intraventricular hemorrhage. We did once again review the CAT scan results today with the patient's daughter was at bedside. The patient underwent a echocardiogram today which reveals her to have an ejection fraction of 5%. We did have a long discussion with the patient's daughter who was at bedside in the ICU. She is aware of her mother's very critical condition. She would like us to continue with current treatment plans as her has wished her to remain full CODE STATUS. We will continue to follow her progress closely in the intensive care unit. Overall prognosis at this time remains very guarded. Review of Systems ROS unobtainable: due to mental status Constitutional: Denies chills, Denies fever Eyes: denies blurred vision, denies pain Ears, nose, mouth and throat: Denies headache, Denies sore throat Cardiovascular: Denies chest pain, Denies shortness of breath Respiratory: Denies cough Gastrointestinal: Denies abdominal pain, Denies diarrhea, Denies nausea, Denies vomiting Genitourinary: Denies dysuria, Denies hematuria Musculoskeletal: Denies myalgias Integumentary: Denies pruritus, Denies rash Neurological: Reports change in mentation, Reports confusion, Reports hearing difficulties, Reports loss of vision, Reports paresthesias, Denies numbness, Denies weakness Psychiatric: Reports confusion, Reports disorientation, Denies anxiety, Denies depression Endocrine: Denies fatigue, Denies weight change Past Medical History Past Medical History: CVA/TIA, Hypertension, Sleep Apnea/CPAP/BIPAP Additional Past Medical History / Comment(s): BELLS PALSY, History of Any Multi-Drug Resistant Organisms: None Reported Past Surgical History: Appendectomy, Cholecystectomy, Hysterectomy, Orthopedic Surgery, Tonsillectomy Additional Past Surgical History / Comment(s): D&C, CATARACT Smoking Status: Unknown if ever smoked Medications and Allergies Home Medications Medication Instructions Recorded Confirmed Type Metoprolol Tartrate [Lopressor] 25 mg PO BID 11/05/13 04/09/18 History ALPRAZolam [Xanax] 0.25 mg PO DAILY PRN 04/09/18 04/09/18 History Acetaminophen Tab [Tylenol Tab] 650 mg PO Q6H PRN MDD 3 GRAMS 04/09/18 04/09/18 History Amoxicillin/Potassium Clav 1 tab PO Q12HR 04/09/18 04/09/18 History [Augmentin 875-125 Tablet] Cholecalciferol [Vitamin D3] 2,000 unit PO HS 04/09/18 04/09/18 History Cyanocobalamin (Vitamin B-12) 1,000 mcg PO HS 04/09/18 04/09/18 History [Vitamin B-12] Donepezil [Aricept] 10 mg PO HS 04/09/18 04/09/18 History Ipratropium-Albuterol Nebulize 3 ml INHALATION RT-Q4H 04/09/18 04/09/18 History [Duoneb 0.5 mg-3 mg/3 ml Soln] Losartan Potassium 50 mg PO BID 04/09/18 04/09/18 History Melatonin 3 mg PO HS 04/09/18 04/09/18 History amLODIPine [Norvasc] 10 mg PO DAILY 04/09/18 04/09/18 History cefTRIAXone [Rocephin] 1,000 mg IM ONCE 04/09/18 04/09/18 History Allergies Allergy/AdvReac Type Severity Reaction Status Date / Time ciprofloxacin [From Cipro] Allergy Unknown Verified 04/09/18 13:37 memantine [From Namenda] Allergy Unknown Verified 04/09/18 13:37 metronidazole [From Flagyl] Allergy Unknown Verified 04/09/18 13:37 Physical Examination - Vital Signs Vital Signs: Vital Signs Temp Pulse Pulse Resp BP BP Pulse Ox 04/10/18 14:00 135/46 04/10/18 13:30 62 14 133/55 100 04/10/18 13:00 55 L 18 108/39 04/10/18 12:30 55 L 27 H 101/44 100 04/10/18 12:00 59 L 20 128/62 04/10/18 11:45 61 04/10/18 11:30 56 L 23 131/53 100 04/10/18 11:00 56 L 20 133/53 100 04/10/18 10:30 61 20 135/55 04/10/18 10:00 68 20 139/52 100 04/10/18 09:30 63 17 140/60 04/10/18 09:00 70 16 140/50 100 04/10/18 08:30 63 20 145/51 04/10/18 08:10 58 L 04/10/18 08:00 98.6 F 70 13 137/56 100 04/10/18 07:30 57 L 04/10/18 07:00 71 25 H 134/41 100 04/10/18 06:30 57 L 04/10/18 06:00 59 L 22 141/56 100 04/10/18 05:30 63 04/10/18 05:00 67 21 109/47 100 04/10/18 04:52 68 04/10/18 04:45 69 04/10/18 04:30 65 04/10/18 04:00 97.1 F L 72 24 136/46 100 04/10/18 03:30 64 22 100 04/10/18 03:00 68 23 134/62 100 04/10/18 02:56 65 24 100 04/10/18 02:11 98.2 F 79 24 127/62 96 04/10/18 01:03 88 04/10/18 00:31 88 04/10/18 00:14 98.4 F 66 28 H 111/63 98 04/10/18 00:00 66 28 H 04/09/18 21:50 92 24 133/62 98 04/09/18 20:39 79 04/09/18 20:33 76 24 127/60 100 04/09/18 20:31 83 04/09/18 18:47 82 16 137/64 97 04/09/18 17:20 70 16 133/62 99 04/09/18 16:21 78 18 137/60 99 04/09/18 15:20 64 20 99/58 99 Intake and Output 04/10/18 04/10/18 04/10/18 06:59 14:59 22:59 Intake Total 640 410 Output Total 130 655 Balance 510 -245 Intake: IV 140 410 Dextrose 5% in Water 1, 300 000 ml @ 100 mls/hr IV . [id number] GUILLE with Sodium Bicarb (1 Meq/ml) 150 ml Rx#:[id number] Piperacillin-Tazobactam 3 50 50 .375 gm In Dextrose/Water 1 50ml.bag @ 12.5 mls/hr IVPB Q8H GUILLE Rx#: [id number] Sodium Chloride 0.9% 1, 90 60 000 ml @ 50 mls/hr IV . Q20H STA Rx#:[id number] Amount of Fluid Infused ( 500 ml) Output: Urine 130 655 Other: Voiding Method Indwelling Catheter Indwelling Catheter Weight 63 kg 63 kg - Constitutional General appearance: average body habitus, cooperative - EENT EENT: PERRL, mucous membranes moist - Respiratory Respiratory: lungs clear, normal breath sounds - Cardiovascular Cardiovascular: regular rate, normal S1, normal S2 Extremities: no peripheral edema bilaterally - Gastrointestinal Gastrointestinal: normoactive bowel sounds - Integumentary Integumentary: normal - Neurologic Cranial nerve examination: PERRL, EOMI, VFF, V1/V2/V3 grossly intact, face symmetric, tongue midline, intact gag reflex, intact corneal reflex, normal palatal elevation Speech examination: intact Sensorimotor examination: intact Motor examination - right side: 3/5: biceps, triceps, wrist flexion, wrist extension, manager multimedia, hip flexors, knee extensors, dorsiflexion, toe extension (EHL) , plantarflexion Motor examination - left side: 3/5: biceps, triceps, wrist flexion, wrist extension, manager multimedia, hip flexors, knee extensors, dorsiflexion, toe extension (EHL) , plantarflexion Detailed sensory examination: intact Reflex and gait examination: intact Reflexes: 1+: ankle, bicep, knee, tricep - Musculoskeletal Musculoskeletal: no pain - Psychiatric Psychiatric: mood/affect appropriate, cooperative Results - Laboratory Findings CBC and BMP: 04/10/18 04:47 04/10/18 05:53 Abnormal Lab Findings: Abnormal Labs 04/09/18 04/09/18 04/09/18 13:29 13:32 13:32 WBC RBC Hgb Hct RDW Neutrophils # (Manual) Lymphocytes # (Manual) Monocytes # (Manual) Metamyelocytes # (Man) Myelocytes # (Manual) ABG pH ABG pCO2 ABG HCO3 ABG O2 Saturation Chloride 108 H Carbon Dioxide 16 L BUN 76 H Creatinine 5.37 H Glucose 115 H POC Glucose (mg/dL) 73 L Plasma Lactic Acid Lavon Calcium 8.3 L Total Bilirubin 3.0 H AST 78 H ALT 86 H Alkaline Phosphatase 132 H Total Creatine Kinase 251 H CK-MB (CK-2) 5.0 H Troponin I 0.181 H* Total Protein 5.8 L Albumin 3.1 L Urine Appearance Urine Protein Urine Blood Ur Leukocyte Esterase Urine RBC Urine WBC Urine WBC Clumps Urine Bacteria Urine Mucus 04/09/18 04/09/18 04/09/18 13:32 13:32 13:32 WBC 68.5 H* RBC 3.53 L Hgb 10.8 L Hct RDW 16.9 H Neutrophils # (Manual) 52.70 H Lymphocytes # (Manual) Monocytes # (Manual) 4.80 H Metamyelocytes # (Man) 6.85 H Myelocytes # (Manual) 4.80 H ABG pH ABG pCO2 ABG HCO3 ABG O2 Saturation Chloride Carbon Dioxide BUN Creatinine Glucose POC Glucose (mg/dL) Plasma Lactic Acid Lavon 4.8 H* Calcium Total Bilirubin AST ALT Alkaline Phosphatase Total Creatine Kinase CK-MB (CK-2) Troponin I Total Protein Albumin Urine Appearance Cloudy H Urine Protein Trace H Urine Blood Moderate H Ur Leukocyte Esterase Large H Urine RBC 27 H Urine WBC 80 H Urine WBC Clumps Moderate H Urine Bacteria Moderate H Urine Mucus Rare H 04/09/18 04/10/18 04/10/18 18:16 00:11 00:11 WBC 61.2 H* RBC 3.60 L Hgb 10.7 L Hct 32.5 L RDW Neutrophils # (Manual) 58.10 H Lymphocytes # (Manual) Monocytes # (Manual) Metamyelocytes # (Man) 3.06 H Myelocytes # (Manual) ABG pH ABG pCO2 ABG HCO3 ABG O2 Saturation Chloride Carbon Dioxide BUN Creatinine Glucose POC Glucose (mg/dL) Plasma Lactic Acid Lavon 2.8 H* 2.9 H* Calcium Total Bilirubin AST ALT Alkaline Phosphatase Total Creatine Kinase CK-MB (CK-2) Troponin I Total Protein Albumin Urine Appearance Urine Protein Urine Blood Ur Leukocyte Esterase Urine RBC Urine WBC Urine WBC Clumps Urine Bacteria Urine Mucus 04/10/18 04/10/18 04/10/18 01:17 02:50 04:47 WBC RBC Hgb Hct RDW Neutrophils # (Manual) Lymphocytes # (Manual) Monocytes # (Manual) Metamyelocytes # (Man) Myelocytes # (Manual) ABG pH 7.34 L ABG pCO2 33 L ABG HCO3 18 L ABG O2 Saturation 98.5 H Chloride Carbon Dioxide BUN Creatinine Glucose POC Glucose (mg/dL) 139 H Plasma Lactic Acid Lavon 2.2 H* Calcium Total Bilirubin AST ALT Alkaline Phosphatase Total Creatine Kinase CK-MB (CK-2) Troponin I Total Protein Albumin Urine Appearance Urine Protein Urine Blood Ur Leukocyte Esterase Urine RBC Urine WBC Urine WBC Clumps Urine Bacteria Urine Mucus 04/10/18 04/10/18 04:47 05:53 WBC 56.6 H* RBC 3.44 L Hgb 10.3 L Hct 31.9 L RDW Neutrophils # (Manual) 54.90 H Lymphocytes # (Manual) 0.57 L Monocytes # (Manual) Metamyelocytes # (Man) 0.57 H Myelocytes # (Manual) ABG pH ABG pCO2 ABG HCO3 ABG O2 Saturation Chloride 115 H Carbon Dioxide 15 L BUN 87 H Creatinine 4.27 H Glucose 148 H POC Glucose (mg/dL) Plasma Lactic Acid Lavon Calcium 8.0 L Total Bilirubin AST ALT Alkaline Phosphatase Total Creatine Kinase CK-MB (CK-2) Troponin I Total Protein Albumin Urine Appearance Urine Protein Urine Blood Ur Leukocyte Esterase Urine RBC Urine WBC Urine WBC Clumps Urine Bacteria Urine Mucus Assessment and Plan (1) Acute metabolic encephalopathy Current Visit: Yes Status: Acute Code(s): G93.41 - METABOLIC ENCEPHALOPATHY SNOMED Code(s): 79578173 (2) Dementia Current Visit: Yes Status: Acute Code(s): F03.90 - UNSPECIFIED DEMENTIA WITHOUT BEHAVIORAL DISTURBANCE SNOMED Code(s): 55574200 (3) History of intraventricular hemorrhage Current Visit: Yes Status: Acute Code(s): Z86.79 - PERSONAL HISTORY OF OTHER DISEASES OF THE CIRCULATORY SYSTEM SNOMED Code(s): 766053358 (4) Acute renal failure (ARF) Current Visit: Yes Status: Acute Code(s): N17.9 - ACUTE KIDNEY FAILURE, UNSPECIFIED SNOMED Code(s): 70776885 Plan: This patient is a 83-year-old right-handed white female who was transferred from [facility] yesterday evening for evaluation of altered mental status and increasing confusion. Patient was seen in the emergency room at [facility] by Dr. Biggs. She was very obtunded there in the ER yesterday evening and was sent for a computed tomography scan of the brain. CAT scan of the brain results are as noted above. There was no evidence for acute stroke or hemorrhage. Patient was found to have evidence of a very elevated white count in the 60,000 range. Urine analysis revealed her to have a urinary tract infection as well. She was started on Zosyn and admitted to the hospital for further management. She was also found to have evidence of acute kidney injury with an initial serum creatinine of 5.3. She was admitted initially admitted to the medical floor however she continued to show obtunded patient and worsening mental status changes and she was transferred to the intensive care unit this morning. She was sent for a computed tomography scan of the brain this morning the results of which are noted above. Patient has history of multiple medical problems and was recently admitted to [facility] about a week ago according to the daughter. She was admitted with similar complaints of confusion and altered mental status at that time. She did undergo during that admission an MRI of the brain which was completed on 04/02/2018. Results of that MRI are as noted above. The patient is now currently evaluated in the intensive care unit. She is much more awake and alert this afternoon and is able to answer simple questions. According to the daughter who was at bedside in the ICU she is showing improvement in her overall mental status and is almost near baseline level of function according to the daughter. She still has a very elevated white count of 56.600. Infectious disease has been consulted and the patient is now been placed on Zosyn every 8 hours. She does have history of advanced dementia and is currently on Aricept 10 mg daily and should continue on the same. We did review her CAT scan of the brain results today with the daughter at bedside. She does have mild to moderate hydrocephalus which is expected he'll findings due to her cortical atrophy. No evidence for obstructive hydrocephalus. Patient's clinical history is consistent with a severe metabolic encephalopathy producing her altered mental status at this time. She is being evaluated for source of her sepsis by infectious disease. Concern for possibility of abdominal source of sepsis which is to be further evaluated. We did review the patient's recent MRI of the brain that was done at [facility] on 04/02/2018. Patient's daughter is aware of these results. She is not seeking aggressive treatment for the patient for the findings. According to the daughter her has requested that the patient be made full CODE STATUS at this time. This may change depending on her clinical course. We will follow along with multiple specialists that are seeing this patient in the intensive care unit. We will continue close neurological follow-up with this patient in the intensive care unit. Her overall prognosis at this time remains very guarded. Time with Patient: Greater than 30
--- NOTE | 2018-04-10 19:01 | XR ---
EXAMINATION TYPE: XR abdomen acute w cxr DATE OF EXAM: 04/10/2018 COMPARISON: NONE HISTORY: Abdominal pain, chest pain and possible urinary tract infection TECHNIQUE: Upright abdominal radiograph, supine abdominal radiograph and portable chest radiograph w ere obtained. FINDINGS: There is cardiomegaly. Generalized osseous demineralization is seen. No focal consolidation, pleural effusion or pneumothorax. Cholecystectomy clips are noted within the right upper quadrant. No dilated large or small bowel. Mild degenerative changes of the lumbosacral junction are seen. Right hemipelv is is slightly rotated limiting evaluation of the right femoral neck. No suspicious calcifications in the abdomen or pelvis. IMPRESSION: Cardiomegaly with no acute cardiopulmonary process and no acute intra-abdominal process.
[2018-04-10] MEDS: CYANOCOBALAMIN 500 MCG TAB PO SCH (21:17)
[2018-04-10] MEDS: CHOLECALCIFEROL 1,000 UNIT TAB PO SCH (21:17)
[2018-04-10] MEDS: MELATONIN 3 MG TABLET PO SCH (21:17)
[2018-04-10] MEDS: DONEPEZIL 10 MG TAB PO SCH (21:44)
--- NOTE | 2018-04-10 23:11 | P.CONS ---
History of Present Illness - Reason for Consult Consult date: 04/10/18 - Chief Complaint Altered mental status - History of Present Illness 83-year-old female is transferred from extended care facility with worsening mental status. There is very little data available at the time of the consult. There however was a notation in the emergency center the patient relates she wasn't feeling well related to going to [facility]. However EMS documentation reveals that she was transferred to our facility from the medical [place] [facility] [place]. With this further investigation occurred since it was evident she was not at our facility recently, it however became evident that she was hospitalized at the other hospital in [facility]. During that stay there was evidence of an intra-parenchymal brain bleed that was limited. She has underlying dementia and is on Aricept. Apparently her status improved and she was transferred to the extended care facility. It is related that during her stay she has some shortness of breath and a computed tomography scan of her chest with contrast was performed to ensure there was not a pulmonary embolus and this was negative. The patient had a creatinine of 1.02 at the outside facility and had evidence of a normal white blood cell count of 7 and hemoglobin in the 10 range. It is related the time of her transfer that there was some shortness of breath and she was getting breathing treatments and a Solu-Medrol injection 125 mg. Infectious disease consultation was requested given his significant leukocytosis and concerns to sepsis. The patient herself is able to give no specific data at this time. Review of Systems ROS unobtainable: due to mental status Past Medical History Past Medical History: CVA/TIA, Hypertension, Sleep Apnea/CPAP/BIPAP Additional Past Medical History / Comment(s): BELLS PALSY, History of Any Multi-Drug Resistant Organisms: None Reported Past Surgical History: Appendectomy, Cholecystectomy, Hysterectomy, Orthopedic Surgery, Tonsillectomy Additional Past Surgical History / Comment(s): D&C, CATARACT Smoking Status: Unknown if ever smoked Medications and Allergies Home Medications and Allergies Comment(s): Current Medications Acetaminophen (Tylenol Tab) 650 mg PO Q6H PRN PRN Reason: Mild Pain or Fever > 100.5 Albuterol/Ipratropium (Duoneb 0.5 Mg-3 Mg/3 Ml Soln) 3 ml INHALATION RT-Q4H [facility] Last Admin: 04/10/18 21:02 Dose: Not Given Alprazolam (Xanax) 0.25 mg PO DAILY PRN PRN Reason: Anxiety Amlodipine Besylate (Norvasc) 10 mg PO DAILY [facility] Last Admin: 04/10/18 09:33 Dose: 10 mg Cholecalciferol (Vitamin D3) 2,000 unit PO [facility] Last Admin: 04/10/18 21:17 Dose: 2,000 unit Cyanocobalamin (Vitamin B-12) 1,000 mcg PO [facility] Last Admin: 04/10/18 21:17 Dose: 1,000 mcg Donepezil HCl (Aricept) 10 mg PO [facility] Last Admin: 04/10/18 21:44 Dose: 10 mg Heparin Sodium (Porcine) (Heparin) 5,000 unit SQ Q8HR [facility] Last Admin: 04/10/18 16:58 Dose: 5,000 unit Piperacillin/Tazobactam/ (Dextrose 3.375 gm/ IV Solution) 50 mls @ 12.5 mls/hr IVPB Q8H [facility] Last Admin: 04/10/18 18:53 Dose: 12.5 mls/hr Sodium Bicarbonate 150 ml/ (Dextrose/Water) 1,150 mls @ 100 mls/hr IV .[id number] [facility] Last Admin: 04/10/18 11:35 Dose: 100 mls/hr Melatonin (Melatonin) 3 mg PO [facility] Last Admin: 04/10/18 21:17 Dose: 3 mg Metoprolol Tartrate (Lopressor) 25 mg PO BID [facility] Last Admin: 04/10/18 21:17 Dose: 25 mg Pantoprazole Sodium (Protonix) 40 mg IVP DAILY [facility] Last Admin: 04/10/18 11:35 Dose: 40 mg Sodium Bicarbonate (Sodium Bicarbonate Tab) 650 mg PO BID [facility] Last Admin: 04/10/18 21:17 Dose: 650 mg Home Medications Medication Instructions Recorded Confirmed Type Metoprolol Tartrate [Lopressor] 25 mg PO BID 11/05/13 04/09/18 History ALPRAZolam [Xanax] 0.25 mg PO DAILY PRN 04/09/18 04/09/18 History Acetaminophen Tab [Tylenol Tab] 650 mg PO Q6H PRN MDD 3 GRAMS 04/09/18 04/09/18 History Amoxicillin/Potassium Clav 1 tab PO Q12HR 04/09/18 04/09/18 History [Augmentin 875-125 Tablet] Cholecalciferol [Vitamin D3] 2,000 unit PO HS 04/09/18 04/09/18 History Cyanocobalamin (Vitamin B-12) 1,000 mcg PO HS 04/09/18 04/09/18 History [Vitamin B-12] Donepezil [Aricept] 10 mg PO HS 04/09/18 04/09/18 History Ipratropium-Albuterol Nebulize 3 ml INHALATION RT-Q4H 04/09/18 04/09/18 History [Duoneb 0.5 mg-3 mg/3 ml Soln] Losartan Potassium 50 mg PO BID 04/09/18 04/09/18 History Melatonin 3 mg PO HS 04/09/18 04/09/18 History amLODIPine [Norvasc] 10 mg PO DAILY 04/09/18 04/09/18 History cefTRIAXone [Rocephin] 1,000 mg IM ONCE 04/09/18 04/09/18 History Allergies Allergy/AdvReac Type Severity Reaction Status Date / Time ciprofloxacin [From Cipro] Allergy Unknown Verified 04/09/18 13:37 memantine [From Namenda] Allergy Unknown Verified 04/09/18 13:37 metronidazole [From Flagyl] Allergy Unknown Verified 04/09/18 13:37 Physical Exam Vitals: Vital Signs Temp Pulse Pulse Resp BP BP Pulse Ox 04/10/18 19:00 60 16 139/56 100 04/10/18 18:00 70 24 131/54 100 04/10/18 17:00 72 20 118/44 99 04/10/18 16:08 60 04/10/18 16:00 97.9 F 53 L 12 130/51 100 04/10/18 15:59 53 L 04/10/18 15:00 69 12 125/49 99 04/10/18 14:00 135/46 04/10/18 13:30 62 14 133/55 100 04/10/18 13:00 55 L 18 108/39 04/10/18 12:30 55 L 27 H 101/44 100 04/10/18 12:00 59 L 20 128/62 04/10/18 11:45 61 04/10/18 11:30 56 L 23 131/53 100 04/10/18 11:00 56 L 20 133/53 100 04/10/18 10:30 61 20 135/55 04/10/18 10:00 68 20 139/52 100 04/10/18 09:30 63 17 140/60 04/10/18 09:00 70 16 140/50 100 04/10/18 08:30 63 20 145/51 04/10/18 08:10 58 L 04/10/18 08:00 98.6 F 70 13 137/56 100 04/10/18 07:30 57 L 04/10/18 07:00 71 25 H 134/41 100 04/10/18 06:30 57 L 04/10/18 06:00 59 L 22 141/56 100 04/10/18 05:30 63 04/10/18 05:00 67 21 109/47 100 04/10/18 04:52 68 04/10/18 04:45 69 04/10/18 04:30 65 04/10/18 04:00 97.1 F L 72 24 136/46 100 04/10/18 03:30 64 22 100 04/10/18 03:00 68 23 134/62 100 04/10/18 02:56 65 24 100 04/10/18 02:11 98.2 F 79 24 127/62 96 04/10/18 01:03 88 04/10/18 00:31 88 04/10/18 00:14 98.4 F 66 28 H 111/63 98 04/10/18 00:00 66 28 H Intake and Output 04/10/18 04/10/18 04/10/18 06:59 14:59 22:59 Intake Total 640 410 880.0 Output Total 130 655 610 Balance 510 -245 270.0 Intake: IV 140 410 880.0 0.9% Normal Saline 30 Dextrose 5% in Water 1, 300 800 000 ml @ 100 mls/hr IV . [id number] [facility] with Sodium Bicarb (1 Meq/ml) 150 ml Rx#:[id number] Piperacillin-Tazobactam 3 50 50 50.0 .375 gm In Dextrose/Water 1 50ml.bag @ 12.5 mls/hr IVPB Q8H [facility] Rx#: [id number] Sodium Chloride 0.9% 1, 90 60 000 ml @ 50 mls/hr IV . Q20H [facility] Rx#:[id number] Amount of Fluid Infused ( 500 ml) Output: Urine 130 655 610 Other: Voiding Method Indwelling Catheter Indwelling Catheter Indwelling Catheter # Bowel Movements 1 Weight 63 kg 63 kg HEENT: Anicteric conjunctiva are pink and moist nasal mucosa grossly intact without significant lesions, there is no thrush. Neck: The neck is supple without significant lymphadenopathy or thyromegaly. Lungs: There is symmetrical bilateral air entry with few basilar crackles scattered wheezes are heard no bronchial sounds are noted. Heart: Irregular with an audible S1 and S2 soft S4 no distinct murmur click or rub is noted. PMI was nondisplaced. Abdomen: Few bowel sounds were heard, the abdomen is evidence of some mild generalized tenderness however there is very distinct tenderness in the bilateral lower quadrants with evidence of rebound tenderness. The abdomen is not grossly rigid but does have some mild firmness without palpable fluid wave. No hepatosplenomegaly was noted. Extremities: The upper extremities have excellent pulses they are symmetric, no significant petechiae or telangiectasia. No splinter hemorrhages were noted. Lower extremities evidence of trace bilateral pedal edema. She has evidence of some deformity to her feet from significant arthritis Neuro: The patient was arousable. She actually did say hello to the observer. But she is not able to truly relate any data at this time. She spontaneously moves her upper and lower extremities but not to command. Results CBC & Chem 7: 04/10/18 04:47 04/10/18 19:12 Labs: Abnormal Lab Results - Last 24 Hours (Table) 04/10/18 04/10/18 04/10/18 Range/Units 00:11 00:11 01:17 WBC 61.2 H* (3.8-10.6) k/uL RBC 3.60 L (3.80-5.40) m/uL Hgb 10.7 L (11.4-16.0) gm/dL Hct 32.5 L (34.0-46.0) % Neutrophils # (Manual) 58.10 H (1.3-7.7) k/uL Lymphocytes # (Manual) (1.0-4.8) k/uL Metamyelocytes # (Man) 3.06 H (0) k/uL ABG pH 7.34 L (7.35-7.45) ABG pCO2 33 L (35-45) mmHg ABG HCO3 18 L (21-25) mmol/L ABG O2 Saturation 98.5 H (94-97) % Potassium (3.5-5.1) mmol/L Chloride (98-107) mmol/L Carbon Dioxide (22-30) mmol/L BUN (7-17) mg/dL Creatinine (0.52-1.04) mg/dL Glucose (74-99) mg/dL POC Glucose (mg/dL) (75-99) mg/dL Plasma Lactic Acid [place] 2.9 H* (0.7-2.0) mmol/L Calcium (8.4-10.2) mg/dL 04/10/18 04/10/18 04/10/18 Range/Units 02:50 04:47 04:47 WBC 56.6 H* (3.8-10.6) k/uL RBC 3.44 L (3.80-5.40) m/uL Hgb 10.3 L (11.4-16.0) gm/dL Hct 31.9 L (34.0-46.0) % Neutrophils # (Manual) 54.90 H (1.3-7.7) k/uL Lymphocytes # (Manual) 0.57 L (1.0-4.8) k/uL Metamyelocytes # (Man) 0.57 H (0) k/uL ABG pH (7.35-7.45) ABG pCO2 (35-45) mmHg ABG HCO3 (21-25) mmol/L ABG O2 Saturation (94-97) % Potassium (3.5-5.1) mmol/L Chloride (98-107) mmol/L Carbon Dioxide (22-30) mmol/L BUN (7-17) mg/dL Creatinine (0.52-1.04) mg/dL Glucose (74-99) mg/dL POC Glucose (mg/dL) 139 H (75-99) mg/dL Plasma Lactic Acid [place] 2.2 H* (0.7-2.0) mmol/L Calcium (8.4-10.2) mg/dL 04/10/18 04/10/18 Range/Units 05:53 19:12 WBC (3.8-10.6) k/uL RBC (3.80-5.40) m/uL Hgb (11.4-16.0) gm/dL Hct (34.0-46.0) % Neutrophils # (Manual) (1.3-7.7) k/uL Lymphocytes # (Manual) (1.0-4.8) k/uL Metamyelocytes # (Man) (0) k/uL ABG pH (7.35-7.45) ABG pCO2 (35-45) mmHg ABG HCO3 (21-25) mmol/L ABG O2 Saturation (94-97) % Potassium 3.3 L (3.5-5.1) mmol/L Chloride 115 H (98-107) mmol/L Carbon Dioxide 15 L (22-30) mmol/L BUN 87 H (7-17) mg/dL Creatinine 4.27 H (0.52-1.04) mg/dL Glucose 148 H (74-99) mg/dL POC Glucose (mg/dL) (75-99) mg/dL Plasma Lactic Acid [place] (0.7-2.0) mmol/L Calcium 8.0 L (8.4-10.2) mg/dL Microbiology - Last 24 Hours (Table) 04/10/18 18:40 Stool Culture - Preliminary Stool 04/09/18 13:32 Blood Culture - Preliminary Blood No Growth after 24 hours 04/09/18 13:32 Urine Culture - Preliminary Urine,Voided Laboratory Results WBC 56.6 k/uL (3.8-10.6) H* 04/10/18 04:47 RBC 3.44 m/uL (3.80-5.40) L 04/10/18 04:47 Hgb 10.3 gm/dL (11.4-16.0) L 04/10/18 04:47 Hct 31.9 % (34.0-46.0) L 04/10/18 04:47 MCV 92.9 fL (80.0-100.0) 04/10/18 04:47 MCH 30.1 pg (25.0-35.0) 04/10/18 04:47 MCHC 32.4 g/dL (31.0-37.0) 04/10/18 04:47 RDW 14.7 % (11.5-15.5) 04/10/18 04:47 Plt Count 240 k/uL (150-450) 04/10/18 04:47 Neutrophils % (Manual) 78 % 04/10/18 04:47 Band Neutrophils % 19 % 04/10/18 04:47 Lymphocytes % (Manual) 1 % 04/10/18 04:47 Monocytes % (Manual) 1 % 04/10/18 04:47 Metamyelocytes % 1 % 04/10/18 04:47 Myelocytes % 7 % 04/09/18 13:32 Neutrophils # (Manual) 54.90 k/uL (1.3-7.7) H 04/10/18 04:47 Lymphocytes # (Manual) 0.57 k/uL (1.0-4.8) L 04/10/18 04:47 Monocytes # (Manual) 0.57 k/uL (0-1.0) 04/10/18 04:47 Metamyelocytes # (Man) 0.57 k/uL (0) H 04/10/18 04:47 Myelocytes # (Manual) 4.80 k/uL (0) H 04/09/18 13:32 Nucleated RBCs 0 /100 WBC (0-0) 04/10/18 04:47 Manual Slide Review Performed 04/10/18 04:47 Toxic Granulation Present 04/10/18 04:47 Toxic Vacuolation Present 04/10/18 04:47 Dohle Bodies Present 04/09/18 13:32 Hypochromasia Marked 04/10/18 04:47 Anisocytosis Slight 04/09/18 13:32 Macrocytosis Slight 04/09/18 13:32 Sample Site RRA 04/10/18 01:17 ABG pH 7.34 (7.35-7.45) L 04/10/18 01:17 ABG pCO2 33 mmHg (35-45) L 04/10/18 01:17 ABG pO2 95 mmHg (83-108) 04/10/18 01:17 ABG HCO3 18 mmol/L (21-25) L 04/10/18 01:17 ABG Total CO2 19 mmol/L (19-24) 04/10/18 01:17 ABG O2 Saturation 98.5 % (94-97) H 04/10/18 01:17 ABG Base Excess -8.0 mmol/L 04/10/18 01:17 Champ Test Yes 04/10/18 01:17 FiO2 28 % 04/10/18 01:17 Sodium 145 mmol/L (137-145) 04/10/18 05:53 Potassium 3.3 mmol/L (3.5-5.1) L 04/10/18 19:12 Chloride 115 mmol/L (98-107) H 04/10/18 05:53 Carbon Dioxide 15 mmol/L (22-30) L 04/10/18 05:53 Anion Gap 15 mmol/L 04/10/18 05:53 BUN 87 mg/dL (7-17) H 04/10/18 05:53 Creatinine 4.27 mg/dL (0.52-1.04) H 04/10/18 05:53 Est GFR (CKD-EPI)AfAm 10 (>60 ml/min/1.73 sqM) 04/10/18 05:53 Est GFR (CKD-EPI)NonAf 9 (>60 ml/min/1.73 sqM) 04/10/18 05:53 Glucose 148 mg/dL (74-99) H 04/10/18 05:53 POC Glucose (mg/dL) 139 mg/dL (75-99) H 04/10/18 02:50 POC Glu [employer] Technician ID Debra Montaño 04/10/18 02:50 Lactic Ac Sepsis Rflx Y 04/10/18 00:47 Plasma Lactic Acid [place] 2.2 mmol/L (0.7-2.0) H* 04/10/18 04:47 Calcium 8.0 mg/dL (8.4-10.2) L 04/10/18 05:53 Magnesium 2.1 mg/dL (1.6-2.3) 04/10/18 05:53 Total Bilirubin 3.0 mg/dL (0.2-1.3) H 04/09/18 13:32 AST 78 U/L (14-36) H 04/09/18 13:32 ALT 86 U/L (9-52) H 04/09/18 13:32 Alkaline Phosphatase 132 U/L (38-126) H 04/09/18 13:32 Ammonia 9 umol/L (<30) 04/09/18 13:32 Total Creatine Kinase 251 U/L (30-135) H 04/09/18 13:32 CK-MB (CK-2) 5.0 ng/mL (0.0-2.4) H 04/09/18 13:32 CK-MB (CK-2) Rel Index 2.0 04/09/18 13: Troponin I 0.181 ng/mL (0.000-0.034) H* 04/09/18 13:32 NT-Pro-B Natriuret Pep 18853 pg/mL 04/09/18 13:32 Total Protein 5.8 g/dL (6.3-8.2) L 04/09/18 13: Albumin 3.1 g/dL (3.5-5.0) L 04/09/18 13: Amylase 70 U/L (30-110) 04/09/18 13: Lipase 65 U/L (23-300) 04/09/18 13:32 Urine Color Yellow 04/09/18 13: Urine Appearance Cloudy (Clear) H 04/09/18 13:32 Urine pH 7.5 (5.0-8.0) 04/09/18 13:32 Ur Specific [place] 1.009 (1.001-1.035) 04/09/18 13:32 Urine Protein Trace (Negative) H 04/09/18 13:32 Urine Glucose (UA) Negative (Negative) 04/09/18 13:32 Urine Ketones Negative (Negative) 04/09/18 13:32 Urine Blood Moderate (Negative) H 04/09/18 13: Urine Nitrite Negative (Negative) 04/09/18 13:32 Urine Bilirubin Negative (Negative) 04/09/18 13:32 Urine Urobilinogen <2.0 mg/dL (<2.0) 04/09/18 13:32 Ur Leukocyte Esterase Large (Negative) H 04/09/18 13:32 Urine RBC 27 /hpf (0-5) H 04/09/18 13:32 Urine WBC 80 /hpf (0-5) H 04/09/18 13:32 Urine WBC Clumps Moderate /hpf (None) H 04/09/18 13:32 Ur Squamous Epith Cells <1 /hpf (0-4) 04/09/18 13:32 Urine Bacteria Moderate /hpf (None) H 04/09/18 13:32 Urine Mucus Rare /hpf (None) H 04/09/18 13:32 Stool Occult Blood Negative (Negative) 04/10/18 18:40 C. difficile (EIA) Intrp Negative (Negative) 04/10/18 18:40 Influenza Type A RNA Not Detected (Not Detectd) 04/09/18 13:32 Influenza Type B (PCR) Not Detected (Not Detectd) 04/09/18 13:32 Microbiology 04/10/18 18:40 Stool Stool Culture - Preliminary 04/09/18 13:32 Blood Blood Culture - Preliminary No Growth after 24 hours 04/09/18 13:32 Urine,Voided Urine Culture - Preliminary Chest x-ray: report reviewed (No acute infiltrate) CT Scan - head: report reviewed (No acute stroke) US - abdomen: report reviewed (No obstructive uropathy) Assessment and Plan (1) Leukocytosis Narrative/Plan: 83-year-old female recently discharged from outside hospital and transferred to extended care facility after evidence of an intra-parenchymal brain bleed. She is a known history of dementia and is on Aricept. During her last stay there was concerns to pulmonary embolus and a CT angiogram was performed. Patient's mental status markedly reduced while she was at the outside facility because he was transferred to the emergency center for evaluation. There she is now with evidence of significant leukocytosis, acute renal failure and concerns to sepsis. The urinalysis is definitely abnormal, urine and blood cultures are pending. Antimicrobial therapy with Zosyn was begun given her history of recent hospitalization. She does not have a known history of MRSA infection is noted by review of the records from the outside hospital. Neurologic consult is in process in the care is discussed with both the neurologist as well as the critical care physician. Exam reveals evidence for very tender abdomen. With profound leukocytosis there is concerns to an acute abdominal process including ischemic colitis. The patient has had a stool this will be checked for C. diff as well as occult blood. White count will be followed and lactic acidosis should also be monitored. Zosyn would provide adequate antimicrobial coverage for sepsis from ischemic colitis. Current Visit: Yes Status: Acute Code(s): D72.829 - ELEVATED WHITE BLOOD CELL COUNT, UNSPECIFIED SNOMED Code(s): 339758929 (2) History of intraventricular hemorrhage Current Visit: Yes Status: Acute Code(s): Z86.79 - PERSONAL HISTORY OF OTHER DISEASES OF THE CIRCULATORY SYSTEM SNOMED Code(s): 813961858 (3) Acute renal failure (ARF) Current Visit: Yes Status: Acute Code(s): N17.9 - ACUTE KIDNEY FAILURE, UNSPECIFIED SNOMED Code(s): 89786046
[2018-04-11] MEDS: HEPARIN SODIUM,PORCINE 5,000 UNIT/ML 1 ML VIAL SQ SCH ×3 (00:05→16:53)
[2018-04-11] MEDS: SODIUM BICARBONATE 150 MEQ in DEXTROSE 5% IN WATER 1,000 ML IV SCH ×4 (00:05→10:51)
[2018-04-11] MEDS: PIPERACILLIN-TAZOBACTAM 3.375 GM in DEXTROSE/WATER 1 50ML.BAG IVPB SCH ×3 (02:42→17:12)
[2018-04-11] MEDS: IPRATROPIUM-ALBUTEROL 3 ML NEB INHALATION SCH ×5 (03:55→20:49)
[2018-04-11 06:14] LABS: HCT 29.6 % (34.0-46.0); HGB 10.3 gm/dL (11.4-16.0); MCHC 34.8 g/dL (31.0-37.0); Mean Platelet Volume 8.6; Platelet Count 205 k/uL (150-450); RBC 3.32 m/uL (3.80-5.40); RDW 13.6 % (11.5-15.5); WBC 43.4 k/uL (3.8-10.6)
--- NOTE | 2018-04-11 06:20 | XR ---
EXAMINATION TYPE: XR chest 1V DATE OF EXAM: 04/11/2018 HISTORY: Shortness of Breath . REFERENCE: Previous study dated 04/10/2018. FINDINGS: The heart is mildly enlarged. The lungs are clear. Pleural spaces are clear. IMPRESSION: MILD CARDIOMEGALY.
[2018-04-11 06:21] LABS: Albumin 2.8 g/dL (3.5-5.0); Calcium 7.4 mg/dL (8.4-10.2); Magnesium 2.2 mg/dL (1.6-2.3); Phosphorus 4.7 mg/dL (2.5-4.5); Total Bilirubin 1.8 mg/dL (0.2-1.3); Total Protein 5.9 g/dL (6.3-8.2)
[2018-04-11 07:41] LABS: Band Neutrophils % 11 %; Lymphocytes # (M) 3.04 k/uL (1.0-4.8); Metamyelocytes # (M) 0.43 k/uL (0); Metamyelocytes % 1 %; Monocytes # (M) 0.87 k/uL (0-1.0); Neutrophils % (M) 80 %; Nucleated Red Blood Cells 0 /100 WBC (0-0); Polychromasia Present; Total Cells Counted 200; Toxic Granulation Present; Toxic Vacuolation Present
[2018-04-11] MEDS: PANTOPRAZOLE 40 MG/10 ML VIAL IVP SCH (09:26)
--- NOTE | 2018-04-11 10:31 | P.PN ---
Subjective Progress Note Date: 04/11/18 83-year-old female patient, with previous history of CVA, previous history of congestion heart failure obstructive sleep apnea and Oscar's palsy and hypertension, comes in from [facility] because of altered mentation and diminished level of consciousness and elevated white cell count. The patient apparently was reported to have some low-grade fever. Otherwise normal and there have normally more information no more information is available on this patient. In the emergency department, the patient was found to have an elevated white count in the 60,000 range. The patient had bandemia. Urinalysis was suggestive of underlying UTI. She did have some metabolic acidosis and the blood scan showed a pH of 7.34 with a pCO2 of 33 and pO2 of 95 on an FiO2 of 28%. There was some lactic acidosis. Lactic acid level was initially in the 4.5 range and dropped down to 2.2. The patient's serum bicarbonate was 26 and dropped down to 16 and this morning she is at 15. We had a normal renal functions patient back in November 2013. Creatinine was at 5.3 as dropped down to 4.2. She has a Yost catheter in place. She was given a total of 2 L of IV fluid and she was given IV antibiotics which included IV Zosyn. She is on 2 L of oxygen by nasal cannula and his saturations around 99% to chest x-ray shows no acute abnormalities. 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 On 04/11/2018 I'm seeing this patient for a follow-up. Clinically improved compared to yesterday. The patient was given bicarb drip and her acidosis is improved and his serum bicarbonate is up to 27. The renal function is improving and the creatinine is down to 2.7 and she is producing adequate amount of urine output. I switch this patient to a normal saline infusion at the rate of 100 mL an hour. She has urine checked infection with gram-negative bacillus. She is on IV Zosyn. White cell count has dropped down to 43,000. Lactic acid level is also improving. A acute abdominal series was done and showed nonspecific findings. The patient has no abdominal pain or tenderness on today's evaluation. Echocardiogram was also completed and the patient was found to have has underlying dementia. She is awake and she is following commands although she has significant cognitive impairments. I came to find out that the patient also was hospitalized at [facility] recently and during her hospitalization the patient was found to have intracranial bleed and this was confirmed by an MRI of the brain that was done on 04/02/2018. MRI showed mild to moderate hydrocephalus addition to intraventricular hemorrhagic changes which probably was contributing to or obstructive hydrocephalus. Back then the family declined any neurosurgical intervention. The repeat CAT scan of the brain that was done on 04/10/2019 showed no evidence of any hemorrhage and there is still some moderate degree of hydrocephalus. Objective - Vital Signs Vital signs: Vital Signs Temp 97.6 F 04/11/18 08:00 Pulse 57 L 04/11/18 09:04 Resp 14 04/11/18 09:00 BP 112/46 04/11/18 09:00 Pulse Ox 100 04/11/18 09:00 Intake & Output 04/10/18 04/11/18 04/11/18 18:59 06:59 18:59 Intake Total 852.5 1287.5 320 Output Total 1015 715 313 Balance -162.5 572.5 7 Weight 63 kg 75.3 kg Intake: IV 852.5 1287.5 320 0.9% Normal Saline 30 20 Dextrose 5% in Water 1, 700 1200 300 000 ml @ 100 mls/hr IV . [id number] GUILLE with Sodium Bicarb (1 Meq/ml) 150 ml Rx#:[id number] Piperacillin-Tazobactam 3 62.5 87.5 .375 gm In Dextrose/Water 1 50ml.bag @ 12.5 mls/hr IVPB Q8H GUILLE Rx#: [id number] Sodium Chloride 0.9% 1, 60 000 ml @ 50 mls/hr IV . Q20H STA Rx#:[id number] Output: Urine 1015 715 313 Other: Voiding Method Indwelling Catheter Indwelling Catheter Indwelling Catheter # Bowel Movements 1 1 - Exam General appearance: lethargic Head exam: Present: atraumatic, normocephalic, normal inspection Eye exam: Present: other (Left pupil is irregular compared to the right) ENT exam: Present: mucous membranes dry Neck exam: Present: normal inspection. Absent: tenderness, meningismus, lymphadenopathy, there are no neck veins Respiratory exam: Present: There are no wheezing, decreased breath sounds ( Transmitted upper airway sounds) Cardiovascular Exam: Present: regular rate, normal rhythm GI/Abdominal exam: Present: soft, normal bowel sounds. Absent: distended, tenderness, guarding, rebound, rigid Rectal exam: Present: deferred Extremities exam: Present: full ROM, other (Sluggish capillary refill). Absent : pedal edema Back exam: Present: normal inspection Neurological exam: Present: altered, CN II-XII intact, moving all 4 extremities without any limitation. She has underlying dementia. She is a poor historian and she has cognitive impairment. Psychiatric exam: Present: other (Unable to evaluate) Skin exam: Present: pallor - Labs CBC & Chem 7: 04/11/18 05:40 04/11/18 08:12 Labs: Abnormal Lab Results - Last 24 Hours (Table) 04/10/18 04/11/18 04/11/18 Range/Units 19:12 05:40 05:40 WBC 43.4 H (3.8-10.6) k/uL RBC 3.32 L (3.80-5.40) m/uL Hgb 10.3 L (11.4-16.0) gm/dL Hct 29.6 L (34.0-46.0) % Neutrophils # (Manual) 39.40 H (1.3-7.7) k/uL Metamyelocytes # (Man) 0.43 H (0) k/uL Potassium 3.3 L 6.0 H (3.5-5.1) mmol/L Chloride 110 H (98-107) mmol/L BUN 88 H (7-17) mg/dL Creatinine 2.87 H (0.52-1.04) mg/dL Glucose 158 H (74-99) mg/dL Calcium 7.4 L (8.4-10.2) mg/dL Phosphorus 4.7 H (2.5-4.5) mg/dL Total Bilirubin 1.8 H (0.2-1.3) mg/dL AST 85 H (14-36) U/L Total Protein 5.9 L (6.3-8.2) g/dL Albumin 2.8 L (3.5-5.0) g/dL 04/11/18 Range/Units 08:12 WBC (3.8-10.6) k/uL RBC (3.80-5.40) m/uL Hgb (11.4-16.0) gm/dL Hct (34.0-46.0) % Neutrophils # (Manual) (1.3-7.7) k/uL Metamyelocytes # (Man) (0) k/uL Potassium 3.2 L (3.5-5.1) mmol/L Chloride (98-107) mmol/L BUN (7-17) mg/dL Creatinine (0.52-1.04) mg/dL Glucose (74-99) mg/dL Calcium (8.4-10.2) mg/dL Phosphorus (2.5-4.5) mg/dL Total Bilirubin (0.2-1.3) mg/dL AST (14-36) U/L Total Protein (6.3-8.2) g/dL Albumin (3.5-5.0) g/dL Microbiology - Last 24 Hours (Table) 04/09/18 13:32 Urine Culture - Preliminary Urine,Voided Gram Neg Bacilli Gram Neg Bacilli#2 04/10/18 18:40 Stool Culture - Preliminary Stool 04/09/18 13:32 Blood Culture - Preliminary Blood No Growth after 24 hours Assessment and Plan Plan: Assessment 1 sepsis secondary to a urinary tract infection. Pneumonia is doubtful. The patient is hemodynamically stable. The patient is on no pressors for now and her white cell count is improving and gram-negative bacillus is found in the urine, final cultures and identification still pending. 2 acute leukocytosis, likely a leukemoid reaction related to an underlying infection, improving and the white cell count is 43 3 acute kidney injury, likely secondary to intravascular volume depletion/sepsis , and the patient is producing adequate amount of urine output and the renal function is improving with fluid resuscitation. The patient was aggressively resuscitated and the renal function is improving and the creatinine is down to 2.8 from a baseline of 4.2. 4 anion gap metabolic acidosis, lactic aci, recovered2 5 CHF chronic systolic heart failure with an ejection fraction of 20-25% 6 shortness of breath secondary to above. No signs of any volume overload/ pulmonary edema or pneumonia at this point in time 7 dementia 8 hydrocephalus, likely secondary to [employer] atrophy/dementia, with previous history of cerebral bleed 9 hypertension history of 10 CVA history of 11 Oscar's palsy history of 12 very much impaired performance and functional status and the patient is a senior care resident Plan Continue IV fluids. Change IV fluids to normal state rate of 100 mL an hour. Continue IV Zosyn. Awaiting final cultures and sensitivities on urine culture. Continue rest of the supportive care. Monitor renal function. Updates given to us by Dr. Garcia are appreciated. Echocardiogram was noted. She can potentially chance for out of the intensive care unit today and CODE STATUS needs to be discussed further with the .
[2018-04-11] MEDS ORDERED: POTASSIUM CHLORIDE ER 20 MEQ TAB.ER PO STA (10:45)
[2018-04-11] MEDS: SODIUM BICARBONATE TAB 650 MG TAB PO SCH (10:49)
[2018-04-11] MEDS: METOPROLOL TARTRATE 25 MG TAB PO SCH (10:51)
[2018-04-11] MEDS: amLODIPine 10 MG TAB PO SCH (10:58)
[2018-04-11] MEDS: SODIUM CHLORIDE 0.9% 1,000 ML IV SCH ×2 (10:59→21:46)
--- NOTE | 2018-04-11 11:16 | PN ---
PROGRESS NOTE This is an 83-year-old lady that is admitted to hospital with change in mental status secondary to sepsis due to urinary tract infection. She had an echocardiogram that showed severe LV systolic dysfunction. She has known cardiomyopathy and her LV function seemed to have worsened. The patient has had recent intracranial bleed and has hydrocephalus. This morning, she appears much more alert, but appears pleasantly confused. EXAM: Heart rate is 60 beats per minute. Blood pressure is 112/46, respiratory rate is 18, O2 sat is 100% on 2 L. there is no jugular venous distention. Chest exam reveals good air entry bilaterally. Heart exam reveals first and second heart sounds. No gallop. Abdomen is soft. Exam of extremities did not reveal any edema. Peripheral pulses are palpable. Labs showed that her white cell count was 68, on admission and has come down to 43. Potassium is down to 3.2, BUN is 88, creatinine 2.8. ASSESSMENT: 1. Altered mental status secondary to septicemia. 2. History of recent intracranial bleed. 3. History of cardiomyopathy. The patient is currently not in heart failure. 4. Renal failure. PLAN: Continue with the current antibiotics. Continue the Norvasc for blood pressure control. Continue the metoprolol, but I am going to decrease the dosage, Lopressor 12.5 b.i.d. because of the bradycardia. MMODL / IJN: [id number] /
--- NOTE | 2018-04-11 13:45 | PN ---
PROGRESS NOTE SUBJECTIVE: An 83-year-old white female who is being treated for UTI, urosepsis, severe dehydration with worsening renal function. She normally stage III renal disease. Her renal function is greatly improved though today and with IV hydration. She has systolic heart failure, but she has no evidence of any heart failure. White count down to 43,000 from 65,000 which is improving. Creatinine is down to 2.87 from 4.27. The BUN remains 88, potassium is 6.0, has been fixed, now is 3.2. Continues on IV Zosyn and await infectious disease recommendations. As mentioned earlier, renal function and white count improving. She continues on broad-spectrum antibiotics. Stool negative for C diff. Temp 97.6, pulse 57 to 61, blood pressure 112/46, 100 percent on 2 L oxygen. Physical exam is unchanged. She does respond to get some answers to questions. She has history of dementia. She is clinically improving. Urine culture is gram-negative bacilli. Stool culture as mentioned above. Blood cultures are negative. Please see further orders. Please see further treatment with IV Zosyn and check electrolytes again in the morning. Expect to continue to improve from urosepsis and a little bit of metabolic encephalopathies will clear up also. She also has a history of dementia, which is unchanged, hydrocephalus. Intracranial bleed will be treated medically if possible as family did want any aggressive measures done when I admitted her to [facility] last week. MMODL / IJN: [id number] /
--- NOTE | 2018-04-11 16:07 | PN ---
PROGRESS NOTE The patient is seen for followup for acute kidney injury. She was admitted to the hospital with a creatinine of 5.37. Patient was hypotensive. Lactic acid was elevated. She has been started on IV fluids and has received multiple fluid boluses. Serum creatinine is significantly improved to 2.87. Patient has had excellent urine output. She is not on any pressors currently. The patient was started on bicarb drip yesterday. Today, her CO2 is up to 27. She feels well. Mentation also seems to have improved from yesterday. EXAMINATION: Blood pressure is 112/46, heart rate 57 per minute. Patient is afebrile. Examination of the heart S1, S2. Examination of lungs bilateral breath sounds are heard. Abdomen is soft, nontender. Examination of lower extremities shows no significant edema. MAILING SPECIALIST exam is not performed in detail. LABS: Show sodium 144, potassium of 3.2, chloride 110, CO2 27, BUN 88, serum creatinine 2.87, hemoglobin 10.3 g/dL. ASSESSMENT: 1. Acute kidney injury secondary to hypotension, sepsis, currently improving. Patient is nonoliguric. 2. Urinary tract infection with urine culture growing gram-negative bacilli, maintained on Zosyn. 3. Sepsis with lactic acidosis, currently improved. 4. Hypertension. Blood pressure is controlled. Patient is maintained on Norvasc 10 mg daily. 5. History of cerebral bleed, status post MRI at [facility] during her previous admission. I am not sure what her baseline mental status is. PLAN: Switch IV bicarb to normal saline. Replace potassium. Repeat labs in a.m. Avoid nephrotoxic medications. MMODL / IJN: [id number] /
[2018-04-11] MEDS: DONEPEZIL 10 MG TAB PO SCH (21:46)
[2018-04-11] MEDS: METOPROLOL TARTRATE 12.5 MG TAB PO SCH (21:46)
[2018-04-11] MEDS: MELATONIN 3 MG TABLET PO SCH (21:47)
[2018-04-11] MEDS: CHOLECALCIFEROL 1,000 UNIT TAB PO SCH (21:47)
[2018-04-11] MEDS: CYANOCOBALAMIN 500 MCG TAB PO SCH (21:47)
--- NOTE | 2018-04-11 21:47 | P.PN ---
Subjective Progress Note Date: 04/11/18 83-year-old female is transferred from extended care facility with worsening mental status. There is very little data available at the time of the consult. There however was a notation in the emergency center the patient relates she wasn't feeling well related to going to [place]. However EMS documentation reveals that she was transferred to our facility from the [facility]. With this further investigation occurred since it was evident she was not at our facility recently, it however became evident that she was hospitalized at the other hospital [facility]. During that stay there was evidence of an intra-parenchymal brain bleed that was limited. She has underlying dementia and is on Aricept. Apparently her status improved and she was transferred to the extended care facility. It is related that during her stay she has some shortness of breath and a computed tomography scan of her chest with contrast was performed to ensure there was not a pulmonary embolus and this was negative. The patient had a creatinine of 1.02 at the outside facility and had evidence of a normal white blood cell count of 7 and hemoglobin in the 10 range. It is related the time of her transfer that there was some shortness of breath and she was getting breathing treatments and a Solu-Medrol injection 125 mg. Infectious disease consultation was requested given his significant leukocytosis and concerns to sepsis. The patient herself is able to give no specific data at this time. 04/11/2018 patient remains in intensive care unit. Her leukocytosis has shown some improvement, her acute renal failure showing some improvement, her neurological status is also showing some brightening of her affect. She is afebrile. Objective - Vital Signs Vital signs: Vital Signs Temp 99.2 F 04/11/18 18:00 Pulse 68 04/11/18 21:05 Resp 16 04/11/18 19:00 BP 128/56 04/11/18 19:00 Pulse Ox 98 04/11/18 19:00 Intake & Output 04/11/18 04/11/18 04/12/18 06:59 18:59 06:59 Intake Total 1287.5 1610 110 Output Total 715 833 75 Balance 572.5 777 35 Weight 75.3 kg Intake: IV 1287.5 485 10 0.9% Normal Saline 110 10 Dextrose 5% in Water 1, 1200 375 000 ml @ 100 mls/hr IV . [id number] [facility] with Sodium Bicarb (1 Meq/ml) 150 ml Rx#:[id number] Piperacillin-Tazobactam 3 87.5 .375 gm In Dextrose/Water 1 50ml.bag @ 12.5 mls/hr IVPB Q8H [facility] Rx#: [id number] Intake, IV Titration 825 100 Amount Sodium Chloride 0.9% 1, 825 100 000 ml @ 100 mls/hr IV . Q10H [facility] Rx#:[id number] Oral 300 Output: Urine 715 833 75 Other: Voiding Method Indwelling Catheter Indwelling Catheter # Bowel Movements 1 - Exam HEENT: Anicteric conjunctiva are pink and moist nasal mucosa grossly intact without significant lesions, there is no thrush. Neck: The neck is supple without significant lymphadenopathy or thyromegaly. Lungs: There is symmetrical bilateral air entry with few basilar crackles scattered wheezes are heard no bronchial sounds are noted. Heart: Irregular with an audible S1 and S2 soft S4 no distinct murmur click or rub is noted. PMI was nondisplaced. Abdomen: Few bowel sounds were heard, the abdomen is evidence of some mild generalized tenderness however there is very distinct tenderness in the bilateral lower quadrants with evidence of rebound tenderness. The abdomen is not grossly rigid but does have some mild firmness without palpable fluid wave. No hepatosplenomegaly was noted. Extremities: The upper extremities have excellent pulses they are symmetric, no significant petechiae or telangiectasia. No splinter hemorrhages were noted. Lower extremities evidence of trace bilateral pedal edema. She has evidence of some deformity to her feet from significant arthritis Neuro: The patient is a brighter affect, answers several questions and seems comfortable. - Labs CBC & Chem 7: 04/11/18 05:40 04/11/18 19:47 Labs: Abnormal Lab Results - Last 24 Hours (Table) 04/11/18 04/11/18 04/11/18 Range/Units 05:40 05:40 08:12 WBC 43.4 H (3.8-10.6) k/uL RBC 3.32 L (3.80-5.40) m/uL Hgb 10.3 L (11.4-16.0) gm/dL Hct 29.6 L (34.0-46.0) % Neutrophils # (Manual) 39.40 H (1.3-7.7) k/uL Metamyelocytes # (Man) 0.43 H (0) k/uL Potassium 6.0 H 3.2 L (3.5-5.1) mmol/L Chloride 110 H (98-107) mmol/L BUN 88 H (7-17) mg/dL Creatinine 2.87 H (0.52-1.04) mg/dL Glucose 158 H (74-99) mg/dL Calcium 7.4 L (8.4-10.2) mg/dL Phosphorus 4.7 H (2.5-4.5) mg/dL Total Bilirubin 1.8 H (0.2-1.3) mg/dL AST 85 H (14-36) U/L Total Protein 5.9 L (6.3-8.2) g/dL Albumin 2.8 L (3.5-5.0) g/dL Microbiology - Last 24 Hours (Table) 04/09/18 13:32 Blood Culture - Preliminary Blood No Growth after 48 hours 04/09/18 13:32 Urine Culture - Preliminary Urine,Voided Gram Neg Bacilli Gram Neg Bacilli#2 04/10/18 18:40 Stool Culture - Preliminary Stool Laboratory Results WBC 43.4 k/uL (3.8-10.6) H 04/11/18 05:40 RBC 3.32 m/uL (3.80-5.40) L 04/11/18 05:40 Hgb 10.3 gm/dL (11.4-16.0) L 04/11/18 05:40 Hct 29.6 % (34.0-46.0) L 04/11/18 05:40 MCV 89.0 fL (80.0-100.0) 04/11/18 05:40 MCH 31.0 pg (25.0-35.0) 04/11/18 05:40 MCHC 34.8 g/dL (31.0-37.0) 04/11/18 05:40 RDW 13.6 % (11.5-15.5) 04/11/18 05:40 Plt Count 205 k/uL (150-450) 04/11/18 05:40 Neutrophils % (Manual) 80 % 04/11/18 05:40 Band Neutrophils % 11 % 04/11/18 05:40 Lymphocytes % (Manual) 7 % 04/11/18 05:40 Monocytes % (Manual) 2 % 04/11/18 05:40 Metamyelocytes % 1 % 04/11/18 05:40 Myelocytes % 7 % 04/09/18 13:32 Neutrophils # (Manual) 39.40 k/uL (1.3-7.7) H 04/11/18 05:40 Lymphocytes # (Manual) 3.04 k/uL (1.0-4.8) 04/11/18 05:40 Monocytes # (Manual) 0.87 k/uL (0-1.0) 04/11/18 05:40 Metamyelocytes # (Man) 0.43 k/uL (0) H 04/11/18 05:40 Myelocytes # (Manual) 4.80 k/uL (0) H 04/09/18 13:32 Nucleated RBCs 0 /100 WBC (0-0) 04/11/18 05:40 Manual Slide Review Performed 04/10/18 04:47 Toxic Granulation Present 04/11/18 05:40 Toxic Vacuolation Present 04/11/18 05:40 Dohle Bodies Present 04/09/18 13:32 Polychromasia Present 04/11/18 05:40 Hypochromasia Marked 04/10/18 04:47 Anisocytosis Slight 04/09/18 13:32 Macrocytosis Slight 04/09/18 13:32 Sample Site RRA 04/10/18 01:17 ABG pH 7.34 (7.35-7.45) L 04/10/18 01:17 ABG pCO2 33 mmHg (35-45) L 04/10/18 01:17 ABG pO2 95 mmHg (83-108) 04/10/18 01:17 ABG HCO3 18 mmol/L (21-25) L 04/10/18 01:17 ABG Total CO2 19 mmol/L (19-24) 04/10/18 01:17 ABG O2 Saturation 98.5 % (94-97) H 04/10/18 01:17 ABG Base Excess -8.0 mmol/L 04/10/18 01:17 Champ Test Yes 04/10/18 01:17 FiO2 28 % 04/10/18 01:17 Sodium 144 mmol/L (137-145) 04/11/18 05:40 Potassium 3.5 mmol/L (3.5-5.1) 04/11/18 19:47 Chloride 110 mmol/L (98-107) H 04/11/18 05:40 Carbon Dioxide 27 mmol/L (22-30) 04/11/18 05:40 Anion Gap 7 mmol/L 04/11/18 05:40 BUN 88 mg/dL (7-17) H 04/11/18 05:40 Creatinine 2.87 mg/dL (0.52-1.04) H 04/11/18 05:40 Est GFR (CKD-EPI)AfAm 17 (>60 ml/min/1.73 sqM) 04/11/18 05:40 Est GFR (CKD-EPI)NonAf 14 (>60 ml/min/1.73 sqM) 04/11/18 05:40 Glucose 158 mg/dL (74-99) H 04/11/18 05:40 POC Glucose (mg/dL) 139 mg/dL (75-99) H 04/10/18 02:50 POC Glu [place] [employer] ID Debra Montaño 04/10/18 02:50 Lactic Ac Sepsis Rflx Y 04/10/18 00:47 Plasma Lactic Acid [place] 1.5 mmol/L (0.7-2.0) 04/11/18 05:40 Calcium 7.4 mg/dL (8.4-10.2) L 04/11/18 05:40 Phosphorus 4.7 mg/dL (2.5-4.5) H 04/11/18 05:40 Magnesium 2.2 mg/dL (1.6-2.3) 04/11/18 05:40 Total Bilirubin 1.8 mg/dL (0.2-1.3) H 04/11/18 05:40 AST 85 U/L (14-36) H 04/11/18 05:40 ALT 40 U/L (9-52) 04/11/18 05:40 Alkaline Phosphatase 58 U/L (38-126) 04/11/18 05:40 Ammonia 9 umol/L (<30) 04/09/18 13:32 Total Creatine Kinase 251 U/L (30-135) H 04/09/18 13:32 CK-MB (CK-2) 5.0 ng/mL (0.0-2.4) H 04/09/18 13:32 CK-MB (CK-2) Rel Index 2.0 04/09/18 13:32 Troponin I 0.181 ng/mL (0.000-0.034) H* 04/09/18 13:32 NT-Pro-B Natriuret Pep 65439 pg/mL 04/09/18 13:32 Total Protein 5.9 g/dL (6.3-8.2) L 04/11/18 05:40 Albumin 2.8 g/dL (3.5-5.0) L 04/11/18 05:40 Amylase 70 U/L (30-110) 04/09/18 13:32 Lipase 65 U/L (23-300) 04/09/18 13:32 Urine Color Yellow 04/09/18 13: Urine Appearance Cloudy (Clear) H 04/09/18 13:32 Urine pH 7.5 (5.0-8.0) 04/09/18 13:32 Ur Specific [place] 1.009 (1.001-1.035) 04/09/18 13:32 Urine Protein Trace (Negative) H 04/09/18 13:32 Urine Glucose (UA) Negative (Negative) 04/09/18 13:32 Urine Ketones Negative (Negative) 04/09/18 13:32 Urine Blood Moderate (Negative) H 04/09/18 13:32 Urine Nitrite Negative (Negative) 04/09/18 13:32 Urine Bilirubin Negative (Negative) 04/09/18 13:32 Urine Urobilinogen <2.0 mg/dL (<2.0) 04/09/18 13:32 Ur Leukocyte Esterase Large (Negative) H 04/09/18 13:32 Urine RBC 27 /hpf (0-5) H 04/09/18 13:32 Urine WBC 80 /hpf (0-5) H 04/09/18 13:32 Urine WBC Clumps Moderate /hpf (None) H 04/09/18 13:32 Ur Squamous Epith Cells <1 /hpf (0-4) 04/09/18 13:32 Urine Bacteria Moderate /hpf (None) H 04/09/18 13:32 Urine Mucus Rare /hpf (None) H 04/09/18 13:32 Stool Occult Blood Negative (Negative) 04/10/18 18:40 C. difficile (EIA) Intrp Negative (Negative) 04/10/18 18:40 Influenza Type A RNA Not Detected (Not Detectd) 04/09/18 13:32 Influenza Type B (PCR) Not Detected (Not Detectd) 04/09/18 13:32 Microbiology 04/09/18 13:32 Blood Blood Culture - Preliminary No Growth after 48 hours 04/09/18 13:32 Urine,Voided Urine Culture - Preliminary Gram Neg Bacilli Gram Neg Bacilli#2 04/10/18 18:40 Stool Stool Culture - Preliminary Assessment and Plan (1) Leukocytosis Narrative/Plan: 83-year-old female recently discharged from outside hospital and transferred to extended care facility after evidence of an intra-parenchymal brain bleed. She is a known history of dementia and is on Aricept. During her last stay there was concerns to pulmonary embolus and a CT angiogram was performed. Patient's mental status markedly reduced while she was at the outside facility because he was transferred to the emergency center for evaluation. There she is now with evidence of significant leukocytosis, acute renal failure and concerns to sepsis. The urinalysis is definitely abnormal, urine and blood cultures are pending. Antimicrobial therapy with Zosyn was begun given her history of recent hospitalization. She does not have a known history of MRSA infection is noted by review of the records from the outside hospital. Neurologic consult is in process in the care is discussed with both the neurologist as well as the critical care physician. Exam reveals evidence for very tender abdomen. With profound leukocytosis there is concerns to an acute abdominal process including ischemic colitis. The patient has had a stool this will be checked for C. diff as well as occult blood. White count will be followed and lactic acidosis should also be monitored. Zosyn would provide adequate antimicrobial coverage for sepsis from ischemic colitis. 04/11/2018 patient has had some improvement in her status with ongoing supportive care. The urinalysis is noted was abnormal and urine culture now has to gram-negative bacilli and Zosyn will be continued for now. Blood cultures are pending and negative so far. Her profound leukocytosis is showing some improvement. The stool for C. diff came back as negative, abdominal flat plate without evidence of ileus or free air. Stool for occult blood was also negative. The patient is being followed by neurology given her recent intraparenchymal brain bleed for which no intervention was requested. Await cultures to further direct antibiotic therapy. The patient's daughter and are present. The daughter is in the nursing field. At this time we discussed the patient's CODE STATUS and she relates that the father wants the patient to be full code so everything can be done. We discussed that no code does not mean no care it just means that we would not provide futile intervention such as chest compressions. I have asked her to discuss this with her father so that a more appropriate CODE STATUS can be obtained. Current Visit: Yes Status: Acute Code(s): D72.829 - ELEVATED WHITE BLOOD CELL COUNT, UNSPECIFIED SNOMED Code(s): 213863356 (2) History of intraventricular hemorrhage Current Visit: Yes Status: Acute Code(s): Z86.79 - PERSONAL HISTORY OF OTHER DISEASES OF THE CIRCULATORY SYSTEM SNOMED Code(s): 029784237 (3) Acute renal failure (ARF) Current Visit: Yes Status: Acute Code(s): N17.9 - ACUTE KIDNEY FAILURE, UNSPECIFIED SNOMED Code(s): 84626754
[2018-04-12] MEDS: HEPARIN SODIUM,PORCINE 5,000 UNIT/ML 1 ML VIAL SQ SCH ×3 (00:42→15:52)
[2018-04-12] MEDS: PIPERACILLIN-TAZOBACTAM 3.375 GM in DEXTROSE/WATER 1 50ML.BAG IVPB SCH ×3 (02:56→20:13)
[2018-04-12] MEDS: SODIUM CHLORIDE 0.9% 1,000 ML IV SCH (05:50)
[2018-04-12] MEDS: IPRATROPIUM-ALBUTEROL 3 ML NEB INHALATION SCH ×4 (08:28→19:30)
[2018-04-12] MEDS: PANTOPRAZOLE 40 MG/10 ML VIAL IVP SCH (09:52)
[2018-04-12] MEDS: METOPROLOL TARTRATE 12.5 MG TAB PO SCH ×2 (09:52→21:35)
[2018-04-12] MEDS: amLODIPine 10 MG TAB PO SCH (09:52)
--- NOTE | 2018-04-12 10:18 | P.PN ---
<MabelJose Luis crisostomoley E - Last Filed: 04/12/18 10:06> Subjective Progress Note Date: 04/12/18 This is a 83-year-old female patient being seen examined and evaluated today on rounds while covering for Dr. Joselito Lawson. This patient was admitted to the hospital for sepsis, UTI, acute leukocytosis, acute kidney injury secondary to intravascular depletion and sepsis, anion gap metabolic acidosis, CHF, shortness of breath, dementia. patient also was hospitalized at [facility] recently and during her hospitalization the patient was found to have intracranial bleed and this was confirmed by an MRI of the brain that was done on 04/02/2018, the patient declined any neurosurgical intervention at that time. The patient was initially in the intensive care unit and has been downgraded. Patient did have an echocardiogram which revealed an EF of 20-25%. Upon examination the patient is resting up in bed on room air. She still is confused with her underlying dementia. Her urinalysis came back positive for E. coli and Proteus mirabilis. The patient does have on consult an banquet line cook , neurologist, nephrology as well as infectious disease doctor. Currently the patient is a full code currently and the daughter and her may change her CODE STATUS depending on her clinical course. They understand that the patient's overall prognosis remains very guarded. Objective - Vital Signs Vital signs: Vital Signs Temp 98.9 F 04/12/18 06:18 Pulse 70 04/12/18 06:18 Resp 18 04/12/18 06:18 BP 138/92 04/12/18 06:18 Pulse Ox 93 L 04/12/18 06:18 Intake & Output 04/11/18 04/12/18 04/12/18 18:59 06:59 18:59 Intake Total 1610 610 Output Total 833 675 Balance 777 -65 Intake: IV 485 210 0.9% Normal Saline 110 160 Dextrose 5% in Water 1, 375 000 ml @ 100 mls/hr IV . [id number] [facility] with Sodium Bicarb (1 Meq/ml) 150 ml Rx#:[id number] Piperacillin-Tazobactam 3 50 .375 gm In Dextrose/Water 1 50ml.bag @ 12.5 mls/hr IVPB Q8H [facility] Rx#: [id number] Intake, IV Titration 825 400 Amount Sodium Chloride 0.9% 1, 825 400 000 ml @ 100 mls/hr IV . Q10H [facility] Rx#:[id number] Oral 300 Output: Urine 833 675 Other: Voiding Method Indwelling Catheter Indwelling Catheter # Bowel Movements 1 - Exam GENERAL EXAM: Alert, confused, comfortable in no apparent distress. HEAD: Normocephalic. EYES: Normal reaction of pupils, equal size. NOSE: Clear with pink turbinates. THROAT: No erythema or exudates. NECK: No masses, no JVD. CHEST: No chest wall deformity. LUNGS: Equal air entry with no crackles, wheeze, rhonchi or dullness. CVS: S1 and S2 normal with no audible mumurs, regular rhythm. ABDOMEN: No hepatosplenomegaly, normal bowel sounds, no guarding or rigidity. EXTREMITIES: No edema noted, pedal pulses palpable. CENTRAL NERVOUS SYSTEM: Underlying dementia with confusion, tone is normal in all 4 extremities. - Labs CBC & Chem 7: 04/11/18 05:40 04/11/18 19:47 Labs: Microbiology - Last 24 Hours (Table) 04/09/18 13:32 Urine Culture - Final Urine,Voided Escherichia coli Proteus mirabilis 04/09/18 13:32 Blood Culture - Preliminary Blood No Growth after 48 hours Assessment and Plan Assessment: Assessment Sepsis with UTI Acute leukocytosis Acute kidney injury likely secondary to intermittent vascular volume depletion and sepsis Anion gap metabolic acidosis improving History of CHF with an EF of 20-25% Dementia History of CVA History of hydrocephalus with a history of cerebral bleed Plan Patient's overall prognosis very guarded On consult banquet line cook, neurology, infectious disease, nephrology. Appreciate recommendations Medications have been reviewed and will be continued as ordered. Continue with pulmonary hygiene, coughing and deep breathing exercises, and supportive care. Supplemental oxygen to maintain oxygen saturations of 92% or better. Continue nebulizer treatments. Echocardiogram reviewed Chest x-ray and abdominal x-rays reviewed CT of the brain reviewed GI and DVT prophylaxis. We will continue to monitor labs/results and adjust treatment as necessary. Further recommendations pending. I, the signing physician performed an examination of the patient, discussed and directed their management with the nurse practitioner. I have reviewed the nurse practitioner's note and agree with the documented findings, orders and plan of care. Of note we are covering for Dr. Joselito Lawson today. <Ternes,Patito A - Last Filed: 04/12/18 14:40> Objective - Vital Signs Vital signs: Vital Signs Temp 98.9 F 04/12/18 06:18 Pulse 70 04/12/18 06:18 Resp 18 04/12/18 06:18 BP 138/92 04/12/18 06:18 Pulse Ox 93 L 04/12/18 06:18 Intake & Output 04/11/18 04/12/18 04/12/18 18:59 06:59 18:59 Intake Total 1610 610 Output Total 833 675 750 Balance 777 -65 -750 Intake: IV 485 210 0.9% Normal Saline 110 160 Dextrose 5% in Water 1, 375 000 ml @ 100 mls/hr IV . [id number] [facility] with Sodium Bicarb (1 Meq/ml) 150 ml Rx#:[id number] Piperacillin-Tazobactam 3 50 .375 gm In Dextrose/Water 1 50ml.bag @ 12.5 mls/hr IVPB Q8H [facility] Rx#: [id number] Intake, IV Titration 825 400 Amount Sodium Chloride 0.9% 1, 825 400 000 ml @ 100 mls/hr IV . Q10H [facility] Rx#:[id number] Oral 300 Output: Urine 833 675 750 Other: Voiding Method Indwelling Catheter Indwelling Catheter Indwelling Catheter # Bowel Movements 1 2 - Labs CBC & Chem 7: 04/12/18 09:39 04/12/18 09:39 Labs: Abnormal Lab Results - Last 24 Hours (Table) 04/12/18 04/12/18 Range/Units 09:39 09:39 WBC 19.5 H (3.8-10.6) k/uL RBC 3.59 L (3.80-5.40) m/uL Hgb 10.6 L (11.4-16.0) gm/dL Hct 32.1 L (34.0-46.0) % Neutrophils # 16.5 H (1.3-7.7) k/uL Monocytes # 1.5 H (0-1.0) k/uL Sodium 151 H (137-145) mmol/L Potassium 3.3 L (3.5-5.1) mmol/L Chloride 119 H (98-107) mmol/L BUN 65 H (7-17) mg/dL Creatinine 1.87 H (0.52-1.04) mg/dL Glucose 118 H (74-99) mg/dL Calcium 8.2 L (8.4-10.2) mg/dL AST 76 H (14-36) U/L ALT 85 H (9-52) U/L Total Protein 5.0 L (6.3-8.2) g/dL Albumin 2.5 L (3.5-5.0) g/dL Microbiology - Last 24 Hours (Table) 04/09/18 13:32 Urine Culture - Final Urine,Voided Escherichia coli Proteus mirabilis 04/09/18 13:32 Blood Culture - Preliminary Blood No Growth after 48 hours Assessment and Plan Assessment: Patient seen and examined. Patient is confused, lethargic. She does not fully answer questions. She does not appear to be in pain or distress. She is resting comfortably. She has been hemodynamically stable. ~Patito Mckinney DO
[2018-04-12 10:25] LABS: Basophils % (A) 0 %; Eosinophils # (A) 0.2 k/uL (0-0.7); Eosinophils % (A) 1 %; HCT 32.1 % (34.0-46.0); HGB 10.6 gm/dL (11.4-16.0); Lymphocytes # (A) 1.1 k/uL (1.0-4.8); Lymphocytes % (A) 6 %; MCH 29.5 pg (25.0-35.0); MCHC 33.1 g/dL (31.0-37.0); MCV 89.3 fL (80.0-100.0); Mean Platelet Volume 8.1; Monocytes # (A) 1.5 k/uL (0-1.0); Monocytes % (A) 8 %; Neutrophils # (A) 16.5 k/uL (1.3-7.7); Neutrophils % (A) 84 %; Platelet Count 210 k/uL (150-450); RBC 3.59 m/uL (3.80-5.40); RDW 13.5 % (11.5-15.5); WBC 19.5 k/uL (3.8-10.6)
[2018-04-12 11:00] LABS: Albumin 2.5 g/dL (3.5-5.0); Calcium 8.2 mg/dL (8.4-10.2); Magnesium 2.2 mg/dL (1.6-2.3); Phosphorus 3.4 mg/dL (2.5-4.5); Potassium 3.3 mmol/L (3.5-5.1); Total Bilirubin 0.9 mg/dL (0.2-1.3)
--- NOTE | 2018-04-12 11:13 | P.PN ---
Subjective Mrs. Salmeron is seen and examined laying flat in bed in no acute distress. Past medical history significant for systolic heart failure, recent intracranial bleed with hydrocephalus, dementia, hypertension, dilated cardiomyopathy with baseline EF 40% with worsening on recent echo to 20-25% and sleep apnea. She follows with Dr. Maloney in the office. She was admitted with sepsis secondary to urinary tract infection and acute kidney injury. She was seen in consultation for possible heart failure, however she is not in acute heart failure. Lopressor was decreased yesterday for mild bradycardia. Blood pressure 138/92 heart rate 60-70. She is pleasantly confused. Denies chest pain, shortness of breath, dizziness or palpitations. Laboratory data reviewed, EBC down to 19.5 from 68.5 on admission, hgb 10.6, sodium 151, potassium 3.3, creatinine 1.87 down from 5.37 on admission, magnesium 2.2. Objective - Vital Signs Vital signs: Vital Signs Temp 98.9 F 04/12/18 06:18 Pulse 70 04/12/18 06:18 Resp 18 04/12/18 06:18 BP 138/92 04/12/18 06:18 Pulse Ox 93 L 04/12/18 06:18 Intake & Output 04/11/18 04/12/18 04/12/18 18:59 06:59 18:59 Intake Total 1610 610 Output Total 833 675 Balance 777 -65 Intake: IV 485 210 0.9% Normal Saline 110 160 Dextrose 5% in Water 1, 375 000 ml @ 100 mls/hr IV . [id number] [facility] with Sodium Bicarb (1 Meq/ml) 150 ml Rx#:[id number] Piperacillin-Tazobactam 3 50 .375 gm In Dextrose/Water 1 50ml.bag @ 12.5 mls/hr IVPB Q8H [facility] Rx#: [id number] Intake, IV Titration 825 400 Amount Sodium Chloride 0.9% 1, 825 400 000 ml @ 100 mls/hr IV . Q10H [facility] Rx#:[id number] Oral 300 Output: Urine 833 675 Other: Voiding Method Indwelling Catheter Indwelling Catheter # Bowel Movements 1 - Exam GENERAL: Well-appearing, well-nourished and in no acute distress. Pleasantly confused. NECK: Supple without JVD or thyromegaly. LUNGS: Breath sounds clear to auscultation bilaterally. Respiration equal and unlabored. No wheezes, rales or rhonchi. HEART: Regular rate and rhythm without murmurs, rubs or gallops. S1 and S2 heard. EXTREMITIES: Normal range of motion, no edema. No clubbing or cyanosis. Peripheral pulses intact. - Labs CBC & Chem 7: 04/12/18 09:39 04/11/18 19:47 Labs: Abnormal Lab Results - Last 24 Hours (Table) 04/12/18 Range/Units 09:39 WBC 19.5 H (3.8-10.6) k/uL RBC 3.59 L (3.80-5.40) m/uL Hgb 10.6 L (11.4-16.0) gm/dL Hct 32.1 L (34.0-46.0) % Neutrophils # 16.5 H (1.3-7.7) k/uL Monocytes # 1.5 H (0-1.0) k/uL Microbiology - Last 24 Hours (Table) 04/09/18 13:32 Urine Culture - Final Urine,Voided Escherichia coli Proteus mirabilis 04/09/18 13:32 Blood Culture - Preliminary Blood No Growth after 48 hours Assessment and Plan Assessment: ASSESSMENT Altered mental status Sepsis Urinary tract infection Chronic systolic heart failure, EF 20-25%. Currently euvolemic Dilated cardiomyopathy Acute kidney injury Hypokalemia PLAN Ongoing medical management. Not in acute exacerbation of heart failure. We will continue to follow as needed, please call with questions or concerns. Nurse Practitioner note has been reviewed, I agree with a documented findings and plan of care. Patient was seen and examined.
--- NOTE | 2018-04-12 13:16 | P.PN ---
Subjective Progress Note Date: 04/12/18 Principal diagnosis: Sepsis, urinary tract infection urine cultures positive for E. 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 The patient apparently was reported to have some low-grade fever. Otherwise normal and there have normally more information no more information is available on this patient. In the emergency department, the patient was found to have an elevated white count in the 60,000 range. The patient had bandemia. Urinalysis was suggestive of underlying UTI. She did have some metabolic acidosis and the blood scan showed a pH of 7.34 with a pCO2 of 33 and pO2 of 95 on an FiO2 of 28%. There was some lactic acidosis. Lactic acid level was initially in the 4.5 range and dropped down to 2.2. The patient's serum bicarbonate was 26 and dropped down to 16 and this morning she is at 15. We had a normal renal functions patient back in November 2013. Creatinine was at 5.3 as dropped down to 4.2. She has a Yost catheter in place. She was given a total of 2 L of IV fluid and she was given IV antibiotics which included IV Zosyn. She is on 2 L of oxygen by nasal cannula and his saturations around 99% to chest x-ray shows no acute abnormalities. 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 On 04/11/2018 I'm seeing this patient for a follow-up. Clinically improved compared to yesterday. The patient was given bicarb drip and her acidosis is improved and his serum bicarbonate is up to 27. The renal function is improving and the creatinine is down to 2.7 and she is producing adequate amount of urine output. I switch this patient to a normal saline infusion at the rate of 100 mL an hour. She has urine checked infection with gram-negative bacillus. She is on IV Zosyn. White cell count has dropped down to 43,000. Lactic acid level is also improving. A acute abdominal series was done and showed nonspecific findings. The patient has no abdominal pain or tenderness on today's evaluation. Echocardiogram was also completed and the patient was found to have has underlying dementia. She is awake and she is following commands although she has significant cognitive impairments. I came to find out that the patient also was hospitalized at [facility] recently and during her hospitalization the patient was found to have intracranial bleed and this was confirmed by an MRI of the brain that was done on 04/02/2018. MRI showed mild to moderate hydrocephalus addition to intraventricular hemorrhagic changes which probably was contributing to or obstructive hydrocephalus. Back then the family declined any neurosurgical intervention. The repeat CAT scan of the brain that was done on 04/10/2019 showed no evidence of any hemorrhage and there is still some moderate degree of hydrocephalus. On 04/12/2018 patient is seen in follow-up on medical surgical floor. She is awake and alert, she denies any acute distress, denies any trouble breathing, or any other discomfort. Her room air pulse ox is 93%, patient is afebrile, hemodynamically stable. Today's labs show further decrease of white blood cell count, down to 19.5 from 43.4 on yesterday's labs, hemoglobin is stable at 10.6 , serum sodium is up to 151, potassium is 3.3, chloride is 119, B1 is 65 and creatinine is 1.87, renal profile is improving, patient has indwelling catheter and, she is nonoliguric, she is draining clear yellow urine. No fever or chills. Lung sounds are clear to auscultation, her daughter is at the bedside. Was updated on her condition. Patient remains a full code, and the daughter states everyone in the family agrees that patient should be a DO NOT RESUSCITATE , however her father is reluctant to make the patient a DO NOT RESUSCITATE. Objective - Vital Signs Vital signs: Vital Signs Temp 98.9 F 04/12/18 06:18 Pulse 70 04/12/18 06:18 Resp 18 04/12/18 06:18 BP 138/92 04/12/18 06:18 Pulse Ox 93 L 04/12/18 06:18 Intake & Output 04/11/18 04/12/18 04/12/18 18:59 06:59 18:59 Intake Total 1610 610 Output Total 833 675 750 Balance 777 -65 -750 Intake: IV 485 210 0.9% Normal Saline 110 160 Dextrose 5% in Water 1, 375 000 ml @ 100 mls/hr IV . [id number] GUILLE with Sodium Bicarb (1 Meq/ml) 150 ml Rx#:[id number] Piperacillin-Tazobactam 3 50 .375 gm In Dextrose/Water 1 50ml.bag @ 12.5 mls/hr IVPB Q8H GUILLE Rx#: [id number] Intake, IV Titration 825 400 Amount Sodium Chloride 0.9% 1, 825 400 000 ml @ 100 mls/hr IV . Q10H GUILLE Rx#:[id number] Oral 300 Output: Urine 833 675 750 Other: Voiding Method Indwelling Catheter Indwelling Catheter # Bowel Movements 1 2 - Exam General appearance: Awake and alert, oriented to person Head exam: Present: atraumatic, normocephalic, normal inspection Eye exam: Present: other (Left pupil is irregular compared to the right) ENT exam: Present: mucous membranes dry Neck exam: Present: normal inspection. Absent: tenderness, meningismus, lymphadenopathy, there are no neck veins Respiratory exam: Present: There are no wheezing, decreased breath sounds ( Transmitted upper airway sounds) Cardiovascular Exam: Present: regular rate, normal rhythm GI/Abdominal exam: Present: soft, normal bowel sounds. Absent: distended, tenderness, guarding, rebound, rigid Rectal exam: Present: deferred Extremities exam: Present: full ROM, other (Sluggish capillary refill). Absent : pedal edema Back exam: Present: normal inspection Neurological exam: Present: altered, CN II-XII intact, moving all 4 extremities without any limitation. She has underlying dementia. She is a poor historian and she has cognitive impairment. Psychiatric exam: Present: other (Unable to evaluate) Skin exam: Present: pallor - Labs CBC & Chem 7: 04/12/18 09:39 04/12/18 09:39 Labs: Abnormal Lab Results - Last 24 Hours (Table) 04/12/18 04/12/18 Range/Units 09:39 09:39 WBC 19.5 H (3.8-10.6) k/uL RBC 3.59 L (3.80-5.40) m/uL Hgb 10.6 L (11.4-16.0) gm/dL Hct 32.1 L (34.0-46.0) % Neutrophils # 16.5 H (1.3-7.7) k/uL Monocytes # 1.5 H (0-1.0) k/uL Sodium 151 H (137-145) mmol/L Potassium 3.3 L (3.5-5.1) mmol/L Chloride 119 H (98-107) mmol/L BUN 65 H (7-17) mg/dL Creatinine 1.87 H (0.52-1.04) mg/dL Glucose 118 H (74-99) mg/dL Calcium 8.2 L (8.4-10.2) mg/dL AST 76 H (14-36) U/L ALT 85 H (9-52) U/L Total Protein 5.0 L (6.3-8.2) g/dL Albumin 2.5 L (3.5-5.0) g/dL Microbiology - Last 24 Hours (Table) 04/09/18 13:32 Urine Culture - Final Urine,Voided Escherichia coli Proteus mirabilis 04/09/18 13:32 Blood Culture - Preliminary Blood No Growth after 48 hours Assessment and Plan Plan: 1 sepsis secondary to a urinary tract infection. Pneumonia is doubtful. The patient is hemodynamically stable. The patient is on no pressors for now and her white cell count is improving and gram-negative bacillus is found in the urine, final cultures showed E. coli and Proteus mirabilis, both susceptible to Zosyn 2 acute leukocytosis, likely a leukemoid reaction related to an underlying infection, improving and the white cell count is 43 3 acute kidney injury, likely secondary to intravascular volume depletion/sepsis , and the patient is producing adequate amount of urine output and the renal function is improving with fluid resuscitation. The patient was aggressively resuscitated and the renal function is improving and the creatinine is down to 2.8 from a baseline of 4.2. 4 anion gap metabolic acidosis, lactic aci, recovered2 5 hypernatremia and hyperchloremia, likely related to fluid resuscitation with 0.9 normal saline 6 CHF chronic systolic heart failure with an ejection fraction of 20-25% 7 shortness of breath secondary to above. No signs of any volume overload/ pulmonary edema or pneumonia at this point in time 8 dementia 9 hydrocephalus, likely secondary to PIANO TUNER atrophy/dementia, with previous history of cerebral bleed 10 hypertension history of 11 CVA history of 12 Oscar's palsy history of 13 very much impaired performance and functional status and the patient is a halfway resident Plan: Continue current antibiotic coverage, patient is afebrile, hemodynamically stable, we'll switch to IV fluids to D5W at a rate of 75 ML per hour. Encourage oral fluid intake. Patient is nonoliguric. CODE STATUS was addressed with the daughter at the bedside, who states everyone is in the family is in agreement that the patient should be a DO NOT RESUSCITATE except for her father who is reluctant to make that decision. Maintain aspiration precaution. Continue GI and DVT prophylaxis. I performed a history & physical examination of the patient and discussed their management with my nurse practitioner, Minnie Solano. I reviewed the nurse practitioner's note and agree with the documented findings and plan of care. Lung sounds are clear. The findings and the impression was discussed with the patient. I attest to the documentation by the nurse practitioner. Time with Patient: Less than 30
--- NOTE | 2018-04-12 13:59 | CDI ---
Last Revision, June 2017 Documentation Clarification Form Date: 04/12/2018 1:47:31 PM From: Aury LaresZECHARIAH, CCDS Admit Date: 04/09/2018 5:12:00 PM Patient Name: Jenni Salmeron Visit Number: [id number] Discharge Date: ATTENTION: The Clinical Documentation Specialists (CDI) and [facility] Coding Staff appreciate your assistance in clarifying documentation. Please respond to the clarification below the line at the bottom and electronically sign. The CDI & [facility] Coding staff will review the response and follow-up if needed. Please note: Queries are made part of the Legal Health Record. If you have any questions, please contact the author of this message via ITS. Dr. Joselito Lawson MD and/or Dr. Patito Mckinney, DO: Patient is admitted from SNF with Sepsis secondary to a urinary tract infection , Acute renal failure with ATN, Metabolic encephalopathy, Chronic Systolic CHF & Hypertension, CKD & Chronic Atrial Fibrillation. Per the nursing notes, the patient has an indwelling Yost catheter due to urinary retention. Also documented in the pulmonary & infectious disease consults. History/Risk factors: Dementia, Previous brain bleed, Hydrocephalus, Hypertension, Oscar's Palsy, CHF. Clinical Indicators: Urinalysis: UA: Cloudy, trace protein, moderate blood, large esterase, RBC 27, WBC 80, Moderate WBC clumps, Moderate bacteria. Urine Culture: E Coli, Proteus mirabillis (final) Lab results: WBC 68.5^^, Neut 52.70^, Lactic Acid 4.8^^. Treatment: ICU, IV fluid bolus, IV fluids, IV Rocephin, IV Lasix, Albuterol INH , IV Zosyn, IV NaBicard. In your professional opinion, can you please clarify the etiology of the UTI, if known? UTI related to Yost catheter UTI not related to Yost catheter Other condition, please specify Unable to determine If an infective organism is present, please specify cause and effect relationship if applicable. UTI on admission, not related to foley MTDD
[2018-04-12] MEDS: DEXTROSE 5% IN WATER 1,000 ML IV SCH (14:19)
--- NOTE | 2018-04-12 19:56 | PN ---
PROGRESS NOTE Patient is seen for followup for acute kidney injury. Her renal function has been improving. Patient has been transferred out of the ICU. She is currently maintained on normal saline. She does not communicate much. She has been comfortable and has pain eating when she is fed. On examination this morning, blood pressure is 139/68, heart rate 69 per minute. She is afebrile. EXAMINATION OF THE HEART: S1, S2. EXAMINATION OF LUNGS: Bilateral breath sounds are heard. ABDOMEN: Soft, non-tender. Examination of lower extremities shows no evidence of edema. REINSURANCE ANALYST exam shows patient not moving her right side much. LABS: Sodium 151, potassium 3.3, BUN 65, serum creatinine 1.87. Hemoglobin was 10.6 g/dL. ASSESSMENT: 1. Acute kidney injury, acute tubular necrosis, currently improved with good urine output. Patient is maintained on IV fluids. 2. Hypernatremia secondary to free water deficit. Change IV fluids to D5W. It looks like the fluids have been changed already. 3. Hypokalemia. Will replace. 4. Urinary tract infection with urine culture growing Escherichia coli and Proteus mirabilis, maintained on Zosyn. 5. Hypertension, currently controlled. 6. History of intracranial bleed on a recent admission at [facility]. Mentation is at baseline currently. PLAN: Agree with changing fluids to D5WITH. Replace potassium and repeat labs in a.m. MMODL / IJN: [id number] /
[2018-04-12] MEDS: CYANOCOBALAMIN 500 MCG TAB PO SCH (20:03)
[2018-04-12] MEDS: POTASSIUM CHLORIDE ER 20 MEQ TAB.ER PO SCH ×2 (20:03→21:36)
[2018-04-12] MEDS: DONEPEZIL 10 MG TAB PO SCH (20:04)
[2018-04-12] MEDS: CHOLECALCIFEROL 1,000 UNIT TAB PO SCH (20:04)
[2018-04-12] MEDS: MELATONIN 3 MG TABLET PO SCH (20:04)
--- NOTE | 2018-04-12 22:36 | P.PN ---
Subjective Progress Note Date: 04/12/18 83-year-old female is transferred from extended care facility with worsening mental status. There is very little data available at the time of the consult. There however was a notation in the emergency center the patient relates she wasn't feeling well related to going to [facility]. However EMS documentation reveals that she was transferred to our facility from the [facility]. With this further investigation occurred since it was evident she was not at our facility recently, it however became evident that she was hospitalized at the other hospital in [facility]. During that stay there was evidence of an intra-parenchymal brain bleed that was limited. She has underlying dementia and is on Aricept. Apparently her status improved and she was transferred to the extended care facility. It is related that during her stay she has some shortness of breath and a computed tomography scan of her chest with contrast was performed to ensure there was not a pulmonary embolus and this was negative. The patient had a creatinine of 1.02 at the outside facility and had evidence of a normal white blood cell count of 7 and hemoglobin in the 10 range. It is related the time of her transfer that there was some shortness of breath and she was getting breathing treatments and a Solu-Medrol injection 125 mg. Infectious disease consultation was requested given his significant leukocytosis and concerns to sepsis. The patient herself is able to give no specific data at this time. 04/11/2018 patient remains in intensive care unit. Her leukocytosis has shown some improvement, her acute renal failure showing some improvement, her neurological status is also showing some brightening of her affect. She is afebrile. 04/12/2018 patient is showing some further improvement, family is pleased that she is more comfortable. Does have a ongoing waxing and waning mental status which is not new. Objective - Vital Signs Vital signs: Vital Signs Temp 99.6 F 04/12/18 21:28 Pulse 70 04/12/18 21:28 Resp 16 04/12/18 21:28 BP 136/63 04/12/18 21:28 Pulse Ox 96 04/12/18 21:28 Intake & Output 04/12/18 04/12/18 04/13/18 06:59 18:59 06:59 Intake Total 610 Output Total 675 1550 Balance -65 -1550 Intake: IV 210 0.9% Normal Saline 160 Piperacillin-Tazobactam 3 50 .375 gm In Dextrose/Water 1 50ml.bag @ 12.5 mls/hr IVPB Q8H [facility] Rx#: [id number] Intake, IV Titration 400 Amount Sodium Chloride 0.9% 1, 400 000 ml @ 100 mls/hr IV . Q10H [facility] Rx#:[id number] Output: Urine 675 1550 Other: Voiding Method Indwelling Catheter Indwelling Catheter # Bowel Movements 1 2 - Exam HEENT: Anicteric conjunctiva are pink and moist nasal mucosa grossly intact without significant lesions, there is no thrush. Neck: The neck is supple without significant lymphadenopathy or thyromegaly. Lungs: There is symmetrical bilateral air entry with few basilar crackles scattered wheezes are heard no bronchial sounds are noted. Heart: Irregular with an audible S1 and S2 soft S4 no distinct murmur click or rub is noted. PMI was nondisplaced. Abdomen: Few bowel sounds were heard, the abdomen is evidence of some mild generalized tenderness however there is very distinct tenderness in the bilateral lower quadrants with evidence of rebound tenderness. The abdomen is not grossly rigid but does have some mild firmness without palpable fluid wave. No hepatosplenomegaly was noted. Extremities: The upper extremities have excellent pulses they are symmetric, no significant petechiae or telangiectasia. No splinter hemorrhages were noted. Lower extremities evidence of trace bilateral pedal edema. She has evidence of some deformity to her feet from significant arthritis Neuro: The patient states hello but cannot recall her daughter's name. - Labs CBC & Chem 7: 04/12/18 09:39 04/12/18 09:39 Labs: Abnormal Lab Results - Last 24 Hours (Table) 04/12/18 04/12/18 Range/Units 09:39 09:39 WBC 19.5 H (3.8-10.6) k/uL RBC 3.59 L (3.80-5.40) m/uL Hgb 10.6 L (11.4-16.0) gm/dL Hct 32.1 L (34.0-46.0) % Neutrophils # 16.5 H (1.3-7.7) k/uL Monocytes # 1.5 H (0-1.0) k/uL Sodium 151 H (137-145) mmol/L Potassium 3.3 L (3.5-5.1) mmol/L Chloride 119 H (98-107) mmol/L BUN 65 H (7-17) mg/dL Creatinine 1.87 H (0.52-1.04) mg/dL Glucose 118 H (74-99) mg/dL Calcium 8.2 L (8.4-10.2) mg/dL AST 76 H (14-36) U/L ALT 85 H (9-52) U/L Total Protein 5.0 L (6.3-8.2) g/dL Albumin 2.5 L (3.5-5.0) g/dL Microbiology - Last 24 Hours (Table) 04/10/18 18:40 Stool Culture - Preliminary Stool 04/09/18 13:32 Blood Culture - Preliminary Blood No Growth after 72 hours 04/09/18 13:32 Urine Culture - Final Urine,Voided Escherichia coli Proteus mirabilis Laboratory Results WBC 19.5 k/uL (3.8-10.6) H 04/12/18 09:39 RBC 3.59 m/uL (3.80-5.40) L 04/12/18 09:39 Hgb 10.6 gm/dL (11.4-16.0) L 04/12/18 09:39 Hct 32.1 % (34.0-46.0) L 04/12/18 09:39 MCV 89.3 fL (80.0-100.0) 04/12/18 09:39 MCH 29.5 pg (25.0-35.0) 04/12/18 09:39 MCHC 33.1 g/dL (31.0-37.0) 04/12/18 09:39 RDW 13.5 % (11.5-15.5) 04/12/18 09:39 Plt Count 210 k/uL (150-450) 04/12/18 09:39 Neutrophils % 84 % 04/12/18 09:39 Neutrophils % (Manual) 80 % 04/11/18 05:40 Band Neutrophils % 11 % 04/11/18 05:40 Lymphocytes % 6 % 04/12/18 09:39 Lymphocytes % (Manual) 7 % 04/11/18 05:40 Monocytes % 8 % 04/12/18 09:39 Monocytes % (Manual) 2 % 04/11/18 05:40 Eosinophils % 1 % 04/12/18 09:39 Basophils % 0 % 04/12/18 09:39 Metamyelocytes % 1 % 04/11/18 05:40 Myelocytes % 7 % 04/09/18 13:32 Neutrophils # 16.5 k/uL (1.3-7.7) H 04/12/18 09:39 Neutrophils # (Manual) 39.40 k/uL (1.3-7.7) H 04/11/18 05:40 Lymphocytes # 1.1 k/uL (1.0-4.8) 04/12/18 09:39 Lymphocytes # (Manual) 3.04 k/uL (1.0-4.8) 04/11/18 05:40 Monocytes # 1.5 k/uL (0-1.0) H 04/12/18 09:39 Monocytes # (Manual) 0.87 k/uL (0-1.0) 04/11/18 05:40 Eosinophils # 0.2 k/uL (0-0.7) 04/12/18 09:39 Basophils # 0.0 k/uL (0-0.2) 04/12/18 09:39 Metamyelocytes # (Man) 0.43 k/uL (0) H 04/11/18 05:40 Myelocytes # (Manual) 4.80 k/uL (0) H 04/09/18 13:32 Nucleated RBCs 0 /100 WBC (0-0) 04/11/18 05:40 Manual Slide Review Performed 04/10/18 04:47 Toxic Granulation Present 04/11/18 05:40 Toxic Vacuolation Present 04/11/18 05:40 Dohle Bodies Present 04/09/18 13:32 Polychromasia Present 04/11/18 05:40 Hypochromasia Marked 04/10/18 04:47 Anisocytosis Slight 04/09/18 13:32 Macrocytosis Slight 04/09/18 13:32 Sample Site RRA 04/10/18 01:17 ABG pH 7.34 (7.35-7.45) L 04/10/18 01:17 ABG pCO2 33 mmHg (35-45) L 04/10/18 01:17 ABG pO2 95 mmHg (83-108) 04/10/18 01:17 ABG HCO3 18 mmol/L (21-25) L 04/10/18 01:17 ABG Total CO2 19 mmol/L (19-24) 04/10/18 01:17 ABG O2 Saturation 98.5 % (94-97) H 04/10/18 01:17 ABG Base Excess -8.0 mmol/L 04/10/18 01:17 Champ Test Yes 04/10/18 01:17 FiO2 28 % 04/10/18 01:17 Sodium 151 mmol/L (137-145) H 04/12/18 09:39 Potassium 3.3 mmol/L (3.5-5.1) L 04/12/18 09:39 Chloride 119 mmol/L (98-107) H 04/12/18 09:39 Carbon Dioxide 25 mmol/L (22-30) 04/12/18 09:39 Anion Gap 7 mmol/L 04/12/18 09:39 BUN 65 mg/dL (7-17) H 04/12/18 09:39 Creatinine 1.87 mg/dL (0.52-1.04) H 04/12/18 09:39 Est GFR (CKD-EPI)AfAm 28 (>60 ml/min/1.73 sqM) 04/12/18 09:39 Est GFR (CKD-EPI)NonAf 24 (>60 ml/min/1.73 sqM) 04/12/18 09:39 Glucose 118 mg/dL (74-99) H 04/12/18 09:39 POC Glucose (mg/dL) 139 mg/dL (75-99) H 04/10/18 02:50 POC Glu Line Manager ID Debra Montaño 04/10/18 02:50 Lactic Ac Sepsis Rflx Y 04/10/18 00:47 Plasma Lactic Acid [place] 1.5 mmol/L (0.7-2.0) 04/11/18 05:40 Calcium 8.2 mg/dL (8.4-10.2) L 04/12/18 09:39 Phosphorus 3.4 mg/dL (2.5-4.5) 04/12/18 09:39 Magnesium 2.2 mg/dL (1.6-2.3) 04/12/18 09:39 Total Bilirubin 0.9 mg/dL (0.2-1.3) 04/12/18 09:39 AST 76 U/L (14-36) H 04/12/18 09:39 ALT 85 U/L (9-52) H 04/12/18 09:39 Alkaline Phosphatase 109 U/L (38-126) 04/12/18 09:39 Ammonia 9 umol/L (<30) 04/09/18 13:32 Total Creatine Kinase 251 U/L (30-135) H 04/09/18 13:32 CK-MB (CK-2) 5.0 ng/mL (0.0-2.4) H 04/09/18 13:32 CK-MB (CK-2) Rel Index 2.0 04/09/18 13:32 Troponin I 0.181 ng/mL (0.000-0.034) H* 04/09/18 13:32 NT-Pro-B Natriuret Pep 56622 pg/mL 04/09/18 13:32 Total Protein 5.0 g/dL (6.3-8.2) L 04/12/18 09:39 Albumin 2.5 g/dL (3.5-5.0) L 04/12/18 09:39 Amylase 70 U/L (30-110) 04/09/18 13:32 Lipase 65 U/L (23-300) 04/09/18 13:32 Urine Color Yellow 04/09/18 13:32 Urine Appearance Cloudy (Clear) H 04/09/18 13:32 Urine pH 7.5 (5.0-8.0) 04/09/18 13:32 Ur Specific [place] 1.009 (1.001-1.035) 04/09/18 13:32 Urine Protein Trace (Negative) H 04/09/18 13:32 Urine Glucose (UA) Negative (Negative) 04/09/18 13:32 Urine Ketones Negative (Negative) 04/09/18 13:32 Urine Blood Moderate (Negative) H 04/09/18 13:32 Urine Nitrite Negative (Negative) 04/09/18 13:32 Urine Bilirubin Negative (Negative) 04/09/18 13:32 Urine Urobilinogen <2.0 mg/dL (<2.0) 04/09/18 13:32 Ur Leukocyte Esterase Large (Negative) H 04/09/18 13:32 Urine RBC 27 /hpf (0-5) H 04/09/18 13:32 Urine WBC 80 /hpf (0-5) H 04/09/18 13:32 Urine WBC Clumps Moderate /hpf (None) H 04/09/18 13:32 Ur Squamous Epith Cells <1 /hpf (0-4) 04/09/18 13:32 Urine Bacteria Moderate /hpf (None) H 04/09/18 13:32 Urine Mucus Rare /hpf (None) H 04/09/18 13:32 Stool Occult Blood Negative (Negative) 04/10/18 18:40 C. difficile (EIA) Intrp Negative (Negative) 04/10/18 18:40 Influenza Type A RNA Not Detected (Not Detectd) 04/09/18 13:32 Influenza Type B (PCR) Not Detected (Not Detectd) 04/09/18 13:32 Microbiology 04/10/18 18:40 Stool Stool Culture - Preliminary 04/09/18 13:32 Blood Blood Culture - Preliminary No Growth after 72 hours 04/09/18 13:32 Urine,Voided Urine Culture - Final Escherichia coli Proteus mirabilis Assessment and Plan (1) Leukocytosis Narrative/Plan: 83-year-old female recently discharged from outside hospital and transferred to extended care facility after evidence of an intra-parenchymal brain bleed. She is a known history of dementia and is on Aricept. During her last stay there was concerns to pulmonary embolus and a CT angiogram was performed. Patient's mental status markedly reduced while she was at the outside facility because he was transferred to the emergency center for evaluation. There she is now with evidence of significant leukocytosis, acute renal failure and concerns to sepsis. The urinalysis is definitely abnormal, urine and blood cultures are pending. Antimicrobial therapy with Zosyn was begun given her history of recent hospitalization. She does not have a known history of MRSA infection is noted by review of the records from the outside hospital. Neurologic consult is in process in the care is discussed with both the neurologist as well as the critical care physician. Exam reveals evidence for very tender abdomen. With profound leukocytosis there is concerns to an acute abdominal process including ischemic colitis. The patient has had a stool this will be checked for C. diff as well as occult blood. White count will be followed and lactic acidosis should also be monitored. Zosyn would provide adequate antimicrobial coverage for sepsis from ischemic colitis. 04/11/2018 patient has had some improvement in her status with ongoing supportive care. The urinalysis is noted was abnormal and urine culture now has to gram-negative bacilli and Zosyn will be continued for now. Blood cultures are pending and negative so far. Her profound leukocytosis is showing some improvement. The stool for C. diff came back as negative, abdominal flat plate without evidence of ileus or free air. Stool for occult blood was also negative. The patient is being followed by neurology given her recent intraparenchymal brain bleed for which no intervention was requested. Await cultures to further direct antibiotic therapy. The patient's daughter and are present. The daughter is in the nursing field. At this time we discussed the patient's CODE STATUS and she relates that the father wants the patient to be full code so everything can be done. We discussed that no code does not mean no care it just means that we would not provide futile intervention such as chest compressions. I have asked her to discuss this with her father so that a more appropriate CODE STATUS can be obtained. 04/12/2018 patient has improved and is moved out of intensive care unit. No further fever is noted. Urine culture has evidence of Escherichia coli and Proteus mirabilis. She continues to have some abdominal pain and is being treated with Zosyn at this time. As she improves likely be transitioned to oral antibiotic therapy. Trimethoprim sulfamethoxazole would give us adequate coverage for the pathogens from the urinary system given the fact that there is no positive blood cultures. The stool is negative for C. diff, negative for occult blood and stool culture is negative so far. Her profound leukocytosis is also rapidly improving with the treatment of the sepsis from the urinary tract. Family is looking for the patient to potentially go to [facility] or return to the [facility] appeal. Patient's and power of research attorney desires full CODE STATUS at this time as related from the daughter. Will not require IV antibiotic therapy at the [facility]. Current Visit: Yes Status: Acute Code(s): D72.829 - ELEVATED WHITE BLOOD CELL COUNT, UNSPECIFIED SNOMED Code(s): 762683413 (2) History of intraventricular hemorrhage Current Visit: Yes Status: Acute Code(s): Z86.79 - PERSONAL HISTORY OF OTHER DISEASES OF THE CIRCULATORY SYSTEM SNOMED Code(s): 228855778 (3) Acute renal failure (ARF) Current Visit: Yes Status: Acute Code(s): N17.9 - ACUTE KIDNEY FAILURE, UNSPECIFIED SNOMED Code(s): 82613718
[2018-04-13] MEDS: HEPARIN SODIUM,PORCINE 5,000 UNIT/ML 1 ML VIAL SQ SCH ×4 (00:09→23:09)
[2018-04-13] MEDS: DEXTROSE 5% IN WATER 1,000 ML IV SCH ×2 (04:23→23:05)
[2018-04-13] MEDS: METOPROLOL TARTRATE 12.5 MG TAB PO SCH ×2 (07:46→23:06)
[2018-04-13] MEDS: PANTOPRAZOLE 40 MG/10 ML VIAL IVP SCH (07:46)
[2018-04-13] MEDS: amLODIPine 10 MG TAB PO SCH (07:46)
[2018-04-13] MEDS: PIPERACILLIN-TAZOBACTAM 3.375 GM in DEXTROSE/WATER 1 50ML.BAG IVPB SCH ×2 (07:48→23:09)
[2018-04-13] MEDS: IPRATROPIUM-ALBUTEROL 3 ML NEB INHALATION SCH ×4 (08:35→19:53)
[2018-04-13 09:55] LABS: Basophils % (A) 0 %; Eosinophils # (A) 0.5 k/uL (0-0.7); Eosinophils % (A) 3 %; HCT 30.7 % (34.0-46.0); HGB 10.1 gm/dL (11.4-16.0); Hypochromasia Slight; Lymphocytes # (A) 1.4 k/uL (1.0-4.8); Lymphocytes % (A) 9 %; MCH 29.8 pg (25.0-35.0); MCHC 32.8 g/dL (31.0-37.0); MCV 90.8 fL (80.0-100.0); Mean Platelet Volume 8.4; Monocytes # (A) 1.2 k/uL (0-1.0); Monocytes % (A) 7 %; Neutrophils # (A) 12.6 k/uL (1.3-7.7); Neutrophils % (A) 79 %; Platelet Count 219 k/uL (150-450); RBC 3.39 m/uL (3.80-5.40); RDW 13.7 % (11.5-15.5)
[2018-04-13 10:12] LABS: Calcium 7.9 mg/dL (8.4-10.2); Magnesium 1.8 mg/dL (1.6-2.3); Phosphorus 3.1 mg/dL (2.5-4.5); Potassium 3.5 mmol/L (3.5-5.1)
--- NOTE | 2018-04-13 10:53 | P.PN ---
Subjective Progress Note Date: 04/13/18 Principal diagnosis: Sepsis, urinary tract infection secondary to E. coli and Proteus mirabilis. 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 The patient apparently was reported to have some low-grade fever. Otherwise normal and there have normally more information no more information is available on this patient. In the emergency department, the patient was found to have an elevated white count in the 60,000 range. The patient had bandemia. Urinalysis was suggestive of underlying UTI. She did have some metabolic acidosis and the blood scan showed a pH of 7.34 with a pCO2 of 33 and pO2 of 95 on an FiO2 of 28%. There was some lactic acidosis. Lactic acid level was initially in the 4.5 range and dropped down to 2.2. The patient's serum bicarbonate was 26 and dropped down to 16 and this morning she is at 15. We had a normal renal functions patient back in November 2013. Creatinine was at 5.3 as dropped down to 4.2. She has a Yost catheter in place. She was given a total of 2 L of IV fluid and she was given IV antibiotics which included IV Zosyn. She is on 2 L of oxygen by nasal cannula and his saturations around 99% to chest x-ray shows no acute abnormalities. 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 On 04/11/2018 I'm seeing this patient for a follow-up. Clinically improved compared to yesterday. The patient was given bicarb drip and her acidosis is improved and his serum bicarbonate is up to 27. The renal function is improving and the creatinine is down to 2.7 and she is producing adequate amount of urine output. I switch this patient to a normal saline infusion at the rate of 100 mL an hour. She has urine checked infection with gram-negative bacillus. She is on IV Zosyn. White cell count has dropped down to 43,000. Lactic acid level is also improving. A acute abdominal series was done and showed nonspecific findings. The patient has no abdominal pain or tenderness on today's evaluation. Echocardiogram was also completed and the patient was found to have has underlying dementia. She is awake and she is following commands although she has significant cognitive impairments. I came to find out that the patient also was hospitalized at [facility] recently and during her hospitalization the patient was found to have intracranial bleed and this was confirmed by an MRI of the brain that was done on 04/02/2018. MRI showed mild to moderate hydrocephalus addition to intraventricular hemorrhagic changes which probably was contributing to or obstructive hydrocephalus. Back then the family declined any neurosurgical intervention. The repeat CAT scan of the brain that was done on 04/10/2019 showed no evidence of any hemorrhage and there is still some moderate degree of hydrocephalus. On 04/12/2018 patient is seen in follow-up on medical surgical floor. She is awake and alert, she denies any acute distress, denies any trouble breathing, or any other discomfort. Her room air pulse ox is 93%, patient is afebrile, hemodynamically stable. Today's labs show further decrease of white blood cell count, down to 19.5 from 43.4 on yesterday's labs, hemoglobin is stable at 10.6 , serum sodium is up to 151, potassium is 3.3, chloride is 119, B1 is 65 and creatinine is 1.87, renal profile is improving, patient has indwelling catheter and, she is nonoliguric, she is draining clear yellow urine. No fever or chills. Lung sounds are clear to auscultation, her daughter is at the bedside. Was updated on her condition. Patient remains a full code, and the daughter states everyone in the family agrees that patient should be a DO NOT RESUSCITATE , however her father is reluctant to make the patient a DO NOT RESUSCITATE. The patient is seen again today April 23 in follow-up on the regular medical floor. She is currently awake and alert in no acute distress. She is maintaining good O2 saturations in the 90s on room air. She's been afebrile. Hemodynamically stable. Urine culture was positive for E. coli and Proteus mirabilis. She remains on IV Zosyn. White count 16.0. Hemoglobin 10.1. Sodium improved 147, creatinine improved 1.40. Objective - Vital Signs Vital signs: Vital Signs Temp 98.4 F 04/13/18 05:53 Pulse 80 04/13/18 05:53 Resp 16 04/13/18 05:53 BP 146/69 04/13/18 05:53 Pulse Ox 96 04/13/18 05:53 Intake & Output 04/12/18 04/13/18 04/13/18 18:59 06:59 18:59 Intake Total 50 Output Total 1550 902 250 Balance -0880 -852 -250 Weight 75.3 kg Intake: IV 50 Piperacillin-Tazobactam 3 50 .375 gm In Dextrose/Water 1 50ml.bag @ 12.5 mls/hr IVPB Q8H [facility] Rx#: [id number] Output: Urine 1550 900 250 Uretheral (Yost) 900 Stool 2 Other: Voiding Method Indwelling Catheter Indwelling Catheter # Bowel Movements 2 2 - Exam General appearance: Awake and alert, oriented to person Head exam: Present: atraumatic, normocephalic, normal inspection Eye exam: Present: other (Left pupil is irregular compared to the right) ENT exam: Present: mucous membranes dry Neck exam: Present: normal inspection. Absent: tenderness, meningismus, lymphadenopathy, there are no neck veins Respiratory exam: Present: There are no wheezing, decreased breath sounds ( Transmitted upper airway sounds) Cardiovascular Exam: Present: regular rate, normal rhythm GI/Abdominal exam: Present: soft, normal bowel sounds. Absent: distended, tenderness, guarding, rebound, rigid Rectal exam: Present: deferred Extremities exam: Present: full ROM. Absent: pedal edema Back exam: Present: normal inspection Neurological exam: Present: altered, CN II-XII intact, moving all 4 extremities without any limitation. She has underlying dementia. She is a poor historian and she has cognitive impairment. Psychiatric exam: Present: other (Unable to evaluate) Skin exam: Present: pallor - Labs CBC & Chem 7: 04/13/18 09:31 04/13/18 09:31 Labs: Abnormal Lab Results - Last 24 Hours (Table) 04/12/18 04/13/18 04/13/18 Range/Units 09:39 09:31 09:31 WBC 16.0 H (3.8-10.6) k/uL RBC 3.39 L (3.80-5.40) m/uL Hgb 10.1 L (11.4-16.0) gm/dL Hct 30.7 L (34.0-46.0) % Neutrophils # 12.6 H (1.3-7.7) k/uL Monocytes # 1.2 H (0-1.0) k/uL Sodium 151 H 147 H (137-145) mmol/L Potassium 3.3 L (3.5-5.1) mmol/L Chloride 119 H 117 H (98-107) mmol/L BUN 65 H 47 H (7-17) mg/dL Creatinine 1.87 H 1.40 H (0.52-1.04) mg/dL Glucose 118 H 130 H (74-99) mg/dL Calcium 8.2 L 7.9 L (8.4-10.2) mg/dL AST 76 H (14-36) U/L ALT 85 H (9-52) U/L Total Protein 5.0 L (6.3-8.2) g/dL Albumin 2.5 L (3.5-5.0) g/dL Microbiology - Last 24 Hours (Table) 04/10/18 18:40 Stool Culture - Preliminary Stool 04/09/18 13:32 Blood Culture - Preliminary Blood No Growth after 72 hours Assessment and Plan Assessment: Impression: 1 sepsis secondary to a urinary tract infection. Pneumonia is doubtful. The patient is hemodynamically stable. The patient is on no pressors for now and her white cell count is improving and gram-negative bacillus is found in the urine, final cultures showed E. coli and Proteus mirabilis, both susceptible to Zosyn 2 acute leukocytosis, likely a leukemoid reaction related to an underlying infection, improving and the white cell count is 43 3 acute kidney injury, likely secondary to intravascular volume depletion/sepsis , and the patient is producing adequate amount of urine output and the renal function is improving with fluid resuscitation. The patient was aggressively resuscitated and the renal function is improving and the creatinine is down to 2.8 from a baseline of 4.2. 4 anion gap metabolic acidosis, lactic aci, recovered2 5 hypernatremia and hyperchloremia, likely related to fluid resuscitation with 0.9 normal saline 6 CHF chronic systolic heart failure with an ejection fraction of 20-25% 7 shortness of breath secondary to above. No signs of any volume overload/ pulmonary edema or pneumonia at this point in time 8 dementia 9 hydrocephalus, likely secondary to ORDNANCE ARTIFICER atrophy/dementia, with previous history of cerebral bleed 10 hypertension history of 11 CVA history of 12 Oscar's palsy history of 13 very much impaired performance and functional status and the patient is a halfway resident Plan: The patient was seen and evaluated by Dr. Mccormack. She is currently still able from the pulmonary and critical care standpoint. She remains in aspiration precautions. Continue on IV Zosyn. Continue D5W at 75 ML's per hour. Family still having ongoing discussions related to CODE STATUS. We'll continue to follow. I, the cosigning physician, performed a history & physical examination of the patient. Lungs sounds are clear. Maintaining good O2 saturations in the 90s on room air. I discussed the assessment and plan of care with my nurse practitioner, Lashae Marino. I attest to the above note as dictated by her.
--- NOTE | 2018-04-13 11:05 | P.PN ---
Subjective Progress Note Date: 04/13/18 04/12/18- This is a 83-year-old female patient being seen examined and evaluated today on rounds while covering for Dr. Joselito Lawson. This patient was admitted to the hospital for sepsis, UTI, acute leukocytosis, acute kidney injury secondary to intravascular depletion and sepsis, anion gap metabolic acidosis, CHF, shortness of breath, dementia. patient also was hospitalized at [facility] recently and during her hospitalization the patient was found to have intracranial bleed and this was confirmed by an MRI of the brain that was done on 04/02/2018, the patient declined any neurosurgical intervention at that time. The patient was initially in the intensive care unit and has been downgraded. Patient did have an echocardiogram which revealed an EF of 20-25%. Upon examination the patient is resting up in bed on room air. She still is confused with her underlying dementia. Her urinalysis came back positive for E. coli and Proteus mirabilis. The patient does have on consult an hired help , neurologist, nephrology as well as infectious disease doctor. Currently the patient is a full code currently and the daughter and her may change her CODE STATUS depending on her clinical course. They understand that the patient's overall prognosis remains very guarded. 04/13/18- patient is being seen examined and evaluated today on rounds while covering for Dr. Joselito Lawson. The patient continues to be intermittently confused. HE is much more alert and awake today. She is in no acute distress. She has been maintaining her oxygen saturations on room air. Infectious diseases following her for her UTI which was positive for E. coli and Proteus paralysis she is currently on IV Zosyn. Afebrile all labs and reports reviewed no further complaints Objective - Vital Signs Vital signs: Vital Signs Temp 98.4 F 04/13/18 05:53 Pulse 80 04/13/18 05:53 Resp 16 04/13/18 05:53 BP 146/69 04/13/18 05:53 Pulse Ox 96 04/13/18 05:53 Intake & Output 04/12/18 04/13/18 04/13/18 18:59 06:59 18:59 Intake Total 50 Output Total 8660 902 250 Balance -4140 -962 -250 Weight 75.3 kg Intake: IV 50 Piperacillin-Tazobactam 3 50 .375 gm In Dextrose/Water 1 50ml.bag @ 12.5 mls/hr IVPB Q8H [facility] Rx#: [id number] Output: Urine 1550 900 250 Uretheral (Yost) 900 Stool 2 Other: Voiding Method Indwelling Catheter Indwelling Catheter # Bowel Movements 2 2 - Exam GENERAL EXAM: Alert, confused, comfortable in no apparent distress. HEAD: Normocephalic. EYES: Normal reaction of pupils, equal size. NOSE: Clear with pink turbinates. THROAT: No erythema or exudates. NECK: No masses, no JVD. CHEST: No chest wall deformity. LUNGS: Equal air entry with no crackles, wheeze, rhonchi or dullness. CVS: S1 and S2 normal with no audible mumurs, regular rhythm. ABDOMEN: No hepatosplenomegaly, normal bowel sounds, no guarding or rigidity. EXTREMITIES: No edema noted, pedal pulses palpable. CENTRAL NERVOUS SYSTEM: Underlying dementia with confusion, tone is normal in all 4 extremities. - Labs CBC & Chem 7: 04/13/18 09:31 04/13/18 09:31 Labs: Abnormal Lab Results - Last 24 Hours (Table) 04/13/18 04/13/18 Range/Units 09:31 09:31 WBC 16.0 H (3.8-10.6) k/uL RBC 3.39 L (3.80-5.40) m/uL Hgb 10.1 L (11.4-16.0) gm/dL Hct 30.7 L (34.0-46.0) % Neutrophils # 12.6 H (1.3-7.7) k/uL Monocytes # 1.2 H (0-1.0) k/uL Sodium 147 H (137-145) mmol/L Chloride 117 H (98-107) mmol/L BUN 47 H (7-17) mg/dL Creatinine 1.40 H (0.52-1.04) mg/dL Glucose 130 H (74-99) mg/dL Calcium 7.9 L (8.4-10.2) mg/dL Microbiology - Last 24 Hours (Table) 04/10/18 18:40 Stool Culture - Preliminary Stool 04/09/18 13:32 Blood Culture - Preliminary Blood No Growth after 72 hours Assessment and Plan Assessment: Assessment Sepsis with UTI Acute leukocytosis Acute kidney injury likely secondary to intermittent vascular volume depletion and sepsis Anion gap metabolic acidosis improving History of CHF with an EF of 20-25% Dementia History of CVA History of hydrocephalus with a history of cerebral bleed Plan Patient's overall prognosis very guarded On consult hired help, neurology, infectious disease, nephrology. Appreciate recommendations Medications have been reviewed and will be continued as ordered. Continue with pulmonary hygiene, coughing and deep breathing exercises, and supportive care. Supplemental oxygen to maintain oxygen saturations of 92% or better. Continue nebulizer treatments. Echocardiogram reviewed Chest x-ray and abdominal x-rays reviewed CT of the brain reviewed GI and DVT prophylaxis. We will continue to monitor labs/results and adjust treatment as necessary. Further recommendations pending. Discharge planning to ECF I, the signing physician performed an examination of the patient, discussed and directed their management with the nurse practitioner. I have reviewed the nurse practitioner's note and agree with the documented findings, orders and plan of care. Of note we are covering for Dr. Joselito Lawson today.
[2018-04-13 15:11] VITALS: BMI 31.4
--- NOTE | 2018-04-13 21:45 | PN ---
PROGRESS NOTE Patient is seen for followup for acute kidney injury. She was admitted to the hospital with mental status changes, acute urinary tract infection and acute kidney injury. Renal function has improved with creatinine currently down to 1.4 mg/dL from 5.37 on initial admission. The patient has had good urine output. She has an indwelling Yost catheter with 24 hour urine output of about 2.4 L. PHYSICAL EXAMINATION: Blood pressure this morning 145/65, heart rate 56 per minute. She is afebrile. Examination of the heart: S1, S2. Examination of the lungs: Bilateral breath sounds are heard. Abdomen is soft, nontender. Examination lower extremity shows no significant edema. This morning patient answered simple questions appropriately. LABS: Show sodium 147, potassium 3.5, chloride 117, BUN 47, serum creatinine 1.4 mg/dL. Hemoglobin 10.1 g/dL. ASSESSMENT: 1. Acute kidney injury secondary to sepsis, hypotension, shock, currently significantly improved. The patient is nonoliguric with significant improvement in renal function. She is not on any IV fluids. Patient is maintained on D5W, which we will continue for now. 2. Hypernatremia secondary to free water deficit. Maintained on D5W. 3. Urinary tract infection with urine culture growing E coli and Proteus, maintained on Zosyn. 4. Hypokalemia, status post replacement. 5. History of intracranial bleed on her previous admission at [facility]. PLAN: Continue D5W for now. Repeat labs in a.m. Continue to encourage increased oral intake, particularly free water. MMODL / IJN: [id number] /
[2018-04-13] MEDS: ALPRAZolam 0.25 MG TAB PO PRN (23:06)
[2018-04-13] MEDS: MELATONIN 3 MG TABLET PO SCH (23:07)
[2018-04-13] MEDS: CHOLECALCIFEROL 1,000 UNIT TAB PO SCH (23:07)
[2018-04-13] MEDS: CYANOCOBALAMIN 500 MCG TAB PO SCH (23:07)
[2018-04-13] MEDS: DONEPEZIL 10 MG TAB PO SCH (23:09)
[2018-04-14] MEDS: IPRATROPIUM-ALBUTEROL 3 ML NEB INHALATION SCH ×4 (07:32→20:28)
[2018-04-14] MEDS: DEXTROSE 5% IN WATER 1,000 ML IV SCH ×2 (11:09→16:26)
[2018-04-14] MEDS: PANTOPRAZOLE 40 MG/10 ML VIAL IVP SCH (11:09)
[2018-04-14] MEDS: HEPARIN SODIUM,PORCINE 5,000 UNIT/ML 1 ML VIAL SQ SCH ×2 (11:09→16:26)
[2018-04-14] MEDS: amLODIPine 10 MG TAB PO SCH (11:10)
[2018-04-14] MEDS: METOPROLOL TARTRATE 12.5 MG TAB PO SCH ×2 (11:10→21:25)
[2018-04-14] MEDS: PIPERACILLIN-TAZOBACTAM 3.375 GM in DEXTROSE/WATER 1 50ML.BAG IVPB SCH ×2 (11:11→21:25)
--- NOTE | 2018-04-14 12:25 | P.PN ---
Subjective Progress Note Date: 04/14/18 04/12/18- This is a 83-year-old female patient being seen examined and evaluated today on rounds while covering for Dr. Joselito Lawson. This patient was admitted to the hospital for sepsis, UTI, acute leukocytosis, acute kidney injury secondary to intravascular depletion and sepsis, anion gap metabolic acidosis, CHF, shortness of breath, dementia. patient also was hospitalized at [facility] recently and during her hospitalization the patient was found to have intracranial bleed and this was confirmed by an MRI of the brain that was done on 04/02/2018, the patient declined any neurosurgical intervention at that time. The patient was initially in the intensive care unit and has been downgraded. Patient did have an echocardiogram which revealed an EF of 20-25%. Upon examination the patient is resting up in bed on room air. She still is confused with her underlying dementia. Her urinalysis came back positive for E. coli and Proteus mirabilis. The patient does have on consult an fleece tier , neurologist, nephrology as well as infectious disease doctor. Currently the patient is a full code currently and the daughter and her may change her CODE STATUS depending on her clinical course. They understand that the patient's overall prognosis remains very guarded. 04/13/18- patient is being seen examined and evaluated today on rounds while covering for Dr. Joselito Lawson. The patient continues to be intermittently confused. HE is much more alert and awake today. She is in no acute distress. She has been maintaining her oxygen saturations on room air. Infectious diseases following her for her UTI which was positive for E. coli and Proteus paralysis she is currently on IV Zosyn. Afebrile all labs and reports reviewed no further complaints 04/14/2018patient is being seen examined and evaluated today on rounds covering for Dr. Joselito Lawson. She is resting up in bed on room air. Continues to be intermittently confused. She does have a poor appetite. Food and fluids have been encouraged. She continues to have good urine output from her Yost catheter. She continues on the D5W per nephrology. She is afebrile no further complaints. All labs and reports have been reviewed. Objective - Vital Signs Vital signs: Vital Signs Temp 99.1 F 04/14/18 11:24 Pulse 68 04/14/18 11:41 Resp 14 04/14/18 11:24 BP 141/62 04/14/18 11:24 Pulse Ox 97 04/14/18 11:24 Intake & Output 04/13/18 04/14/18 04/14/18 18:59 06:59 18:59 Intake Total 650 1900 Output Total 250 2 Balance 400 1898 Weight 75.3 kg 75.3 kg Intake: Intake, IV Titration 650 1300 Amount Dextrose 5% in Water 1, 600 1200 000 ml @ 75 mls/hr IV . [id number] [facility] Rx#:[id number] Piperacillin-Tazobactam 3 50 100 .375 gm In Dextrose/Water 1 50ml.bag @ 12.5 mls/hr IVPB BID [facility] Rx#: [id number] Oral 600 Output: Urine 250 Stool 2 Other: Voiding Method Indwelling Catheter # Bowel Movements 3 1 - Exam GENERAL EXAM: Alert, confused, comfortable in no apparent distress. HEAD: Normocephalic. EYES: Normal reaction of pupils, equal size. NOSE: Clear with pink turbinates. THROAT: No erythema or exudates. NECK: No masses, no JVD. CHEST: No chest wall deformity. LUNGS: Equal air entry with no crackles, wheeze, rhonchi or dullness. CVS: S1 and S2 normal with no audible mumurs, regular rhythm. ABDOMEN: No hepatosplenomegaly, normal bowel sounds, no guarding or rigidity. EXTREMITIES: No edema noted, pedal pulses palpable. CENTRAL NERVOUS SYSTEM: Underlying dementia with confusion, tone is normal in all 4 extremities. - Labs CBC & Chem 7: 04/13/18 09:31 04/13/18 09:31 Labs: Microbiology - Last 24 Hours (Table) 04/10/18 18:40 Stool Culture - Final Stool 04/09/18 13:32 Blood Culture - Preliminary Blood No Growth after 96 hours Assessment and Plan Assessment: Assessment Sepsis with UTI Acute leukocytosis Acute kidney injury likely secondary to intermittent vascular volume depletion and sepsis Anion gap metabolic acidosis improving History of CHF with an EF of 20-25% Dementia History of CVA History of hydrocephalus with a history of cerebral bleed Plan Patient's overall prognosis very guarded On consult fleece tier, neurology, infectious disease, nephrology. Appreciate recommendations Medications have been reviewed and will be continued as ordered. Currently on D5W per nephrology Continue with pulmonary hygiene, coughing and deep breathing exercises, and supportive care. Supplemental oxygen to maintain oxygen saturations of 92% or better. Continue nebulizer treatments. Echocardiogram EF of 20-25% Chest x-ray and abdominal x-rays reviewed CT of the brain reviewed GI and DVT prophylaxis. We will continue to monitor labs/results and adjust treatment as necessary. Further recommendations pending. Discharge planning to ECF I, the signing physician performed an examination of the patient, discussed and directed their management with the nurse practitioner. I have reviewed the nurse practitioner's note and agree with the documented findings, orders and plan of care. Of note we are covering for Dr. Joselito Lawson today.
[2018-04-14 12:33] LABS: Basophils # (A) 0.1 k/uL (0-0.2); Basophils % (A) 0 %; Eosinophils # (A) 0.7 k/uL (0-0.7); Eosinophils % (A) 5 %; HCT 32.6 % (34.0-46.0); HGB 10.5 gm/dL (11.4-16.0); Lymphocytes # (A) 2.2 k/uL (1.0-4.8); Lymphocytes % (A) 14 %; MCHC 32.1 g/dL (31.0-37.0); MCV 90.4 fL (80.0-100.0); Monocytes # (A) 0.7 k/uL (0-1.0); Monocytes % (A) 5 %; Neutrophils # (A) 11.4 k/uL (1.3-7.7); Neutrophils % (A) 74 %; Platelet Count 257 k/uL (150-450); RBC 3.61 m/uL (3.80-5.40); RDW 13.5 % (11.5-15.5); WBC 15.4 k/uL (3.8-10.6)
[2018-04-14 12:46] LABS: Albumin 2.3 g/dL (3.5-5.0); Calcium 7.6 mg/dL (8.4-10.2); Potassium 3.7 mmol/L (3.5-5.1); Total Bilirubin 0.8 mg/dL (0.2-1.3); Total Protein 4.8 g/dL (6.3-8.2)
[2018-04-14] MEDS: CYANOCOBALAMIN 500 MCG TAB PO SCH (21:25)
[2018-04-14] MEDS: MELATONIN 3 MG TABLET PO SCH (21:25)
[2018-04-14] MEDS: DONEPEZIL 10 MG TAB PO SCH (21:25)
[2018-04-14] MEDS: CHOLECALCIFEROL 1,000 UNIT TAB PO SCH (21:25)
--- NOTE | 2018-04-14 22:13 | PN ---
PROGRESS NOTE Patient is seen for followup for acute kidney injury. Patient is currently doing well. She is awake, comfortable. She is not in any acute distress. On examination, blood pressure this morning was 141/62, heart rate 68 per minute. Patient is afebrile. EXAMINATION OF THE HEART: S1, S2. EXAMINATION OF LUNGS: Bilateral breath sounds are heard. ABDOMEN: Soft, non-tender. Examination of lower extremities shows no evidence of edema. PHILOSOPHY FACULTY MEMBER exam is grossly intact. Patient answers to simple questions. Labs show sodium 140, potassium 3.7, serum creatinine 1.29 from today, hemoglobin 10.5 g/dL. ASSESSMENT: 1. Acute kidney injury secondary to hypotension, sepsis, currently improved. Creatinine is down to 1.29 from 5.37 on initial admission. 2. Urinary tract infection with urine culture growing Escherichia coli and Proteus, maintained on antibiotics in the form of Zosyn. 3. Hypernatremia, currently resolved. Serum sodium is down to 140. I will change her to half-normal saline tomorrow. 4. History of intracranial bleed during her previous admission. 5. Hypokalemia, status post replacement. PLAN: Change to half-normal saline tomorrow. Continue to encourage increased oral intake. Avoid nephrotoxic agents. MMODL / IJN: [id number] /
[2018-04-15] MEDS: HEPARIN SODIUM,PORCINE 5,000 UNIT/ML 1 ML VIAL SQ SCH ×4 (00:13→23:33)
[2018-04-15] MEDS: IPRATROPIUM-ALBUTEROL 3 ML NEB INHALATION SCH ×4 (07:51→19:48)
[2018-04-15 09:04] LABS: Albumin 2.2 g/dL (3.5-5.0); Calcium 7.7 mg/dL (8.4-10.2); Potassium 3.8 mmol/L (3.5-5.1); Total Bilirubin 0.5 mg/dL (0.2-1.3); Total Protein 4.5 g/dL (6.3-8.2)
[2018-04-15 09:25] LABS: Basophils # (A) 0.1 k/uL (0-0.2); Basophils % (A) 1 %; Eosinophils # (A) 0.7 k/uL (0-0.7); Eosinophils % (A) 4 %; HCT 29.9 % (34.0-46.0); HGB 9.9 gm/dL (11.4-16.0); Lymphocytes # (A) 2.1 k/uL (1.0-4.8); Lymphocytes % (A) 12 %; MCH 29.3 pg (25.0-35.0); MCHC 33.1 g/dL (31.0-37.0); MCV 88.4 fL (80.0-100.0); Mean Platelet Volume 7.8; Monocytes # (A) 0.7 k/uL (0-1.0); Monocytes % (A) 4 %; Neutrophils # (A) 13.1 k/uL (1.3-7.7); Neutrophils % (A) 76 %; Platelet Count 270 k/uL (150-450); RBC 3.39 m/uL (3.80-5.40); RDW 13.1 % (11.5-15.5); WBC 17.2 k/uL (3.8-10.6)
[2018-04-15] MEDS: METOPROLOL TARTRATE 12.5 MG TAB PO SCH ×2 (09:25→20:37)
[2018-04-15] MEDS: PANTOPRAZOLE 40 MG/10 ML VIAL IVP SCH (09:26)
[2018-04-15] MEDS: amLODIPine 10 MG TAB PO SCH (09:31)
[2018-04-15] MEDS: PIPERACILLIN-TAZOBACTAM 3.375 GM in DEXTROSE/WATER 1 50ML.BAG IVPB SCH ×3 (09:41→23:30)
[2018-04-15] MEDS: DEXTROSE 5% IN WATER 1,000 ML IV SCH ×2 (09:43→15:02)
--- NOTE | 2018-04-15 11:15 | P.PN ---
Subjective Progress Note Date: 04/15/18 04/12/18- This is a 83-year-old female patient being seen examined and evaluated today on rounds while covering for Dr. Joselito Lawson. This patient was admitted to the hospital for sepsis, UTI, acute leukocytosis, acute kidney injury secondary to intravascular depletion and sepsis, anion gap metabolic acidosis, CHF, shortness of breath, dementia. patient also was hospitalized at [facility] recently and during her hospitalization the patient was found to have intracranial bleed and this was confirmed by an MRI of the brain that was done on 04/02/2018, the patient declined any neurosurgical intervention at that time. The patient was initially in the intensive care unit and has been downgraded. Patient did have an echocardiogram which revealed an EF of 20-25%. Upon examination the patient is resting up in bed on room air. She still is confused with her underlying dementia. Her urinalysis came back positive for E. coli and Proteus mirabilis. The patient does have on consult an graphotype operator , neurologist, nephrology as well as infectious disease doctor. Currently the patient is a full code currently and the daughter and her may change her CODE STATUS depending on her clinical course. They understand that the patient's overall prognosis remains very guarded. 04/13/18- patient is being seen examined and evaluated today on rounds while covering for Dr. Joselito Laswon. The patient continues to be intermittently confused. HE is much more alert and awake today. She is in no acute distress. She has been maintaining her oxygen saturations on room air. Infectious diseases following her for her UTI which was positive for E. coli and Proteus paralysis she is currently on IV Zosyn. Afebrile all labs and reports reviewed no further complaints 04/14/2018patient is being seen examined and evaluated today on rounds covering for Dr. Joselito Lawson. She is resting up in bed on room air. Continues to be intermittently confused. She does have a poor appetite. Food and fluids have been encouraged. She continues to have good urine output from her Yost catheter. She continues on the D5W per nephrology. She is afebrile no further complaints. All labs and reports have been reviewed. 04/15/18- patient is being seen examined and evaluated today on rounds we'll covering for Dr. Joselito Lawson. She is resting up in bed on room air. Continues to be intermittently confused. Per the nursing staff she is not yet at her baseline. She has had a poor appetite. Today's labs do reveal a WBC that is increased to 17.2, her BUN is 32, creatinine is 1.26. She has been afebrile. Continues on room air. She has been having some increased diarrhea today. We will send a stool down for culture and C. diff. She does have graphotype operator, ID, nephrology and neuro on consult. Objective - Vital Signs Vital signs: Vital Signs Temp 98.9 F 04/15/18 06:41 Pulse 82 04/15/18 08:06 Resp 18 04/15/18 06:41 BP 134/61 04/15/18 06:41 Pulse Ox 97 04/15/18 07:54 Intake & Output 04/14/18 04/15/18 04/15/18 18:59 06:59 18:59 Intake Total 360 450 Output Total 704 3 Balance -344 447 Intake: IV 450 0.9% Normal Saline 450 Oral 360 Output: Urine 700 Stool 4 3 Other: Voiding Method Indwelling Catheter Indwelling Catheter # Voids 2 # Bowel Movements 1 1 - Exam GENERAL EXAM: Alert, confused, comfortable in no apparent distress. HEAD: Normocephalic. EYES: Normal reaction of pupils, equal size. NOSE: Clear with pink turbinates. THROAT: No erythema or exudates. NECK: No masses, no JVD. CHEST: No chest wall deformity. LUNGS: Equal air entry with no crackles, wheeze, rhonchi or dullness. CVS: S1 and S2 normal with no audible mumurs, regular rhythm. ABDOMEN: No hepatosplenomegaly, normal bowel sounds, no guarding or rigidity. EXTREMITIES: No edema noted, pedal pulses palpable. CENTRAL NERVOUS SYSTEM: Underlying dementia with confusion, tone is normal in all 4 extremities. - Labs CBC & Chem 7: 04/15/18 08:24 04/15/18 08:24 Labs: Abnormal Lab Results - Last 24 Hours (Table) 04/14/18 04/14/18 04/15/18 Range/Units 11:55 11:55 08:24 WBC 15.4 H 17.2 H (3.8-10.6) k/uL RBC 3.61 L 3.39 L (3.80-5.40) m/uL Hgb 10.5 L 9.9 L (11.4-16.0) gm/dL Hct 32.6 L 29.9 L (34.0-46.0) % Neutrophils # 11.4 H 13.1 H (1.3-7.7) k/uL Chloride 111 H (98-107) mmol/L BUN 35 H (7-17) mg/dL Creatinine 1.29 H (0.52-1.04) mg/dL Glucose 101 H (74-99) mg/dL Calcium 7.6 L (8.4-10.2) mg/dL AST 67 H (14-36) U/L ALT 133 H (9-52) U/L Total Protein 4.8 L (6.3-8.2) g/dL Albumin 2.3 L (3.5-5.0) g/dL 04/15/18 Range/Units 08:24 WBC (3.8-10.6) k/uL RBC (3.80-5.40) m/uL Hgb (11.4-16.0) gm/dL Hct (34.0-46.0) % Neutrophils # (1.3-7.7) k/uL Chloride 110 H (98-107) mmol/L BUN 32 H (7-17) mg/dL Creatinine 1.26 H (0.52-1.04) mg/dL Glucose 119 H (74-99) mg/dL Calcium 7.7 L (8.4-10.2) mg/dL AST 49 H (14-36) U/L ALT 108 H (9-52) U/L Total Protein 4.5 L (6.3-8.2) g/dL Albumin 2.2 L (3.5-5.0) g/dL Microbiology - Last 24 Hours (Table) 04/09/18 13:32 Blood Culture - Preliminary Blood No Growth after 120 hours 04/10/18 18:40 Stool Culture - Final Stool Assessment and Plan Assessment: Assessment Sepsis with UTI Acute leukocytosis Acute kidney injury likely secondary to intermittent vascular volume depletion and sepsis Anion gap metabolic acidosis improving History of CHF with an EF of 20-25% Dementia History of CVA History of hydrocephalus with a history of cerebral bleed Plan Patient's overall prognosis very guarded Send stool for C. diff, cultures On consult graphotype operator, neurology, infectious disease, nephrology. Appreciate recommendations Medications have been reviewed and will be continued as ordered. Currently on D5W Continue with pulmonary hygiene, coughing and deep breathing exercises, and supportive care. Supplemental oxygen to maintain oxygen saturations of 92% or better. Continue nebulizer treatments. Echocardiogram EF of 20-25% Chest x-ray and abdominal x-rays reviewed CT of the brain reviewed GI and DVT prophylaxis. We will continue to monitor labs/results and adjust treatment as necessary. Further recommendations pending. Discharge planning to ECF I, the signing physician performed an examination of the patient, discussed and directed their management with the nurse practitioner. I have reviewed the nurse practitioner's note and agree with the documented findings, orders and plan of care. Of note we are covering for Dr. Joselito Lawson today.
[2018-04-15] MEDS: SODIUM CHLORIDE 0.9% 1,000 ML IV SCH (18:31)
[2018-04-15] MEDS: CHOLECALCIFEROL 1,000 UNIT TAB PO SCH (20:33)
[2018-04-15] MEDS: MELATONIN 3 MG TABLET PO SCH (20:34)
[2018-04-15] MEDS: CYANOCOBALAMIN 500 MCG TAB PO SCH (20:34)
[2018-04-15] MEDS: DONEPEZIL 10 MG TAB PO SCH (20:34)
--- NOTE | 2018-04-15 21:47 | PN ---
PROGRESS NOTE Patient is seen for followup for acute kidney injury. She is currently lying in bed. The patient is arousable. She is answering simple questions. She denies any significant complaints. EXAMINATION: This morning, blood pressure is 134/61, heart rate 87 per minute. She is afebrile. Examination of the heart: S1, S2. Examination of the lungs: Bilateral breath sounds are heard. Abdomen is soft, nontender. Examination lower extremities shows no evidence of edema. LABS: Sodium 138, potassium 3.8, BUN 32, serum creatinine 1.26, hemoglobin 9.9 g/dL. Magnesium is 1.8. ASSESSMENT: 1. Acute kidney injury secondary to sepsis, urinary tract infection, currently significantly improved. 2. Urinary tract infection maintained on antibiotics and clinically improved. 3. History of intracranial bleed. 4. Status post sepsis with urinary tract infection. 5. Dementia. 6. Cardiomyopathy, ejection fraction 20-25 percent. 7. Hypernatremia, currently significantly improved. I will change IV fluids to normal saline. PLAN: DC D5W. Switch IV fluids to normal saline. Continue to encourage increased oral intake. MMODL / IJN: [id number] /
[2018-04-16] MEDS: PANTOPRAZOLE 40 MG/10 ML VIAL IVP SCH (07:53)
[2018-04-16] MEDS: METOPROLOL TARTRATE 12.5 MG TAB PO SCH ×2 (07:53→22:24)
[2018-04-16] MEDS: amLODIPine 10 MG TAB PO SCH (07:53)
[2018-04-16] MEDS: PIPERACILLIN-TAZOBACTAM 3.375 GM in DEXTROSE/WATER 1 50ML.BAG IVPB SCH ×2 (07:54→16:44)
[2018-04-16] MEDS: HEPARIN SODIUM,PORCINE 5,000 UNIT/ML 1 ML VIAL SQ SCH ×2 (07:54→16:45)
[2018-04-16 09:45] LABS: Basophils # (A) 0.1 k/uL (0-0.2); Basophils % (A) 1 %; Eosinophils # (A) 0.6 k/uL (0-0.7); Eosinophils % (A) 4 %; HCT 28.6 % (34.0-46.0); HGB 9.5 gm/dL (11.4-16.0); Lymphocytes # (A) 1.6 k/uL (1.0-4.8); Lymphocytes % (A) 10 %; MCH 29.6 pg (25.0-35.0); MCHC 33.4 g/dL (31.0-37.0); MCV 88.6 fL (80.0-100.0); Mean Platelet Volume 7.6; Monocytes # (A) 0.7 k/uL (0-1.0); Monocytes % (A) 4 %; Neutrophils % (A) 80 %; Platelet Count 374 k/uL (150-450); RBC 3.23 m/uL (3.80-5.40); RDW 13.1 % (11.5-15.5); WBC 16.2 k/uL (3.8-10.6)
[2018-04-16 09:57] LABS: Albumin 2.3 g/dL (3.5-5.0); Total Protein 4.9 g/dL (6.3-8.2)
[2018-04-16] MEDS: IPRATROPIUM-ALBUTEROL 3 ML NEB INHALATION SCH ×4 (10:59→20:22)
--- NOTE | 2018-04-16 15:10 | P.PN ---
Subjective Progress Note Date: 04/16/18 04/12/18- This is a 83-year-old female patient being seen examined and evaluated today on rounds while covering for Dr. Joselito Lawson. This patient was admitted to the hospital for sepsis, UTI, acute leukocytosis, acute kidney injury secondary to intravascular depletion and sepsis, anion gap metabolic acidosis, CHF, shortness of breath, dementia. patient also was hospitalized at [facility] recently and during her hospitalization the patient was found to have intracranial bleed and this was confirmed by an MRI of the brain that was done on 04/02/2018, the patient declined any neurosurgical intervention at that time. The patient was initially in the intensive care unit and has been downgraded. Patient did have an echocardiogram which revealed an EF of 20-25%. Upon examination the patient is resting up in bed on room air. She still is confused with her underlying dementia. Her urinalysis came back positive for E. coli and Proteus mirabilis. The patient does have on consult an manager asset management , neurologist, nephrology as well as infectious disease doctor. Currently the patient is a full code currently and the daughter and her may change her CODE STATUS depending on her clinical course. They understand that the patient's overall prognosis remains very guarded. 04/13/18- patient is being seen examined and evaluated today on rounds while covering for Dr. Joselito Lawson. The patient continues to be intermittently confused. HE is much more alert and awake today. She is in no acute distress. She has been maintaining her oxygen saturations on room air. Infectious diseases following her for her UTI which was positive for E. coli and Proteus paralysis she is currently on IV Zosyn. Afebrile all labs and reports reviewed no further complaints 04/14/2018patient is being seen examined and evaluated today on rounds covering for Dr. Joselito Lawson. She is resting up in bed on room air. Continues to be intermittently confused. She does have a poor appetite. Food and fluids have been encouraged. She continues to have good urine output from her Galloway catheter. She continues on the D5W per nephrology. She is afebrile no further complaints. All labs and reports have been reviewed. 04/15/18- patient is being seen examined and evaluated today on rounds we'll covering for Dr. Joselito Lawson. She is resting up in bed on room air. Continues to be intermittently confused. Per the nursing staff she is not yet at her baseline. She has had a poor appetite. Today's labs do reveal a WBC that is increased to 17.2, her BUN is 32, creatinine is 1.26. She has been afebrile. Continues on room air. She has been having some increased diarrhea today. We will send a stool down for culture and C. diff. She does have manager asset management, ID, nephrology and neuro on consult. 04/16/18- patient is being seen examined and evaluated on rounds. Nephrology changed her IVF, she continues with poor appitite. We will discontinue the galloway cath and monitor for any retention, and her output. She has been accepted to [facility], potentially can be discharged in the near future. all labs and reports reviewed. Objective - Vital Signs Vital signs: Vital Signs Temp 96.5 F L 04/16/18 12:23 Pulse 70 04/16/18 12:23 Resp 18 04/16/18 12:23 BP 128/78 04/16/18 12:23 Pulse Ox 96 04/16/18 12:23 Intake & Output 04/15/18 04/16/18 04/16/18 18:59 06:59 18:59 Intake Total 200 Output Total 900 951 Balance -900 -751 Intake: IV 200 0.9% Normal Saline 200 Output: Urine 900 950 Uretheral (Galloway) 950 Stool 1 Other: Voiding Method Indwelling Catheter Indwelling Catheter Indwelling Catheter # Voids 0 # Bowel Movements 2 - Exam GENERAL EXAM: Alert, confused, comfortable in no apparent distress. HEAD: Normocephalic. EYES: Normal reaction of pupils, equal size. NOSE: Clear with pink turbinates. THROAT: No erythema or exudates. NECK: No masses, no JVD. CHEST: No chest wall deformity. LUNGS: Equal air entry with no crackles, wheeze, rhonchi or dullness. CVS: S1 and S2 normal with no audible mumurs, regular rhythm. ABDOMEN: No hepatosplenomegaly, normal bowel sounds, no guarding or rigidity. EXTREMITIES: No edema noted, pedal pulses palpable. CENTRAL NERVOUS SYSTEM: Underlying dementia with confusion, tone is normal in all 4 extremities. - Labs CBC & Chem 7: 04/16/18 09:19 04/16/18 09:19 Labs: Abnormal Lab Results - Last 24 Hours (Table) 04/16/18 04/16/18 Range/Units 09:19 09:19 WBC 16.2 H (3.8-10.6) k/uL RBC 3.23 L (3.80-5.40) m/uL Hgb 9.5 L (11.4-16.0) gm/dL Hct 28.6 L (34.0-46.0) % Neutrophils # 13.0 H (1.3-7.7) k/uL Chloride 112 H (98-107) mmol/L Carbon Dioxide 20 L (22-30) mmol/L BUN 25 H (7-17) mg/dL Creatinine 1.20 H (0.52-1.04) mg/dL Glucose 125 H (74-99) mg/dL Calcium 8.0 L (8.4-10.2) mg/dL AST 39 H (14-36) U/L ALT 92 H (9-52) U/L Total Protein 4.9 L (6.3-8.2) g/dL Albumin 2.3 L (3.5-5.0) g/dL Microbiology - Last 24 Hours (Table) 04/15/18 09:50 Stool Culture - Preliminary Stool 04/09/18 13:32 Blood Culture - Final Blood No Growth after 144 hours Assessment and Plan Assessment: Assessment Sepsis with UTI Acute leukocytosis Acute kidney injury likely secondary to intermittent vascular volume depletion and sepsis Anion gap metabolic acidosis improving History of CHF with an EF of 20-25% Dementia History of CVA History of hydrocephalus with a history of cerebral bleed Plan Patient's overall prognosis very guarded discontinue galloway cath, monitor for retention On consult manager asset management, neurology, infectious disease, nephrology. Appreciate recommendations Medications have been reviewed and will be continued as ordered. IVF per nephro Continue with pulmonary hygiene, coughing and deep breathing exercises, and supportive care. Supplemental oxygen to maintain oxygen saturations of 92% or better. Continue nebulizer treatments. Echocardiogram EF of 20-25% Chest x-ray and abdominal x-rays reviewed CT of the brain reviewed GI and DVT prophylaxis. We will continue to monitor labs/results and adjust treatment as necessary. Further recommendations pending. Discharge planning to ECF, has been accepted to [facility] discharge in near future I, the signing physician performed an examination of the patient, discussed and directed their management with the nurse practitioner. I have reviewed the nurse practitioner's note and agree with the documented findings, orders and plan of care. Of note we are covering for Dr. Joselito Lawson today.
[2018-04-16] MEDS: SODIUM CHLORIDE 0.9% 1,000 ML IV SCH (16:45)
--- NOTE | 2018-04-16 19:09 | PN ---
PROGRESS NOTE Patient is seen for followup for acute kidney injury. She was admitted with hypotension and urinary tract infection. Renal function is improved significantly. Creatinine now staying about 1.2 from 5.3 on initial admission. The patient had been on IV fluids. She was hypernatremic for which fluids were changed to D5W. Sodium has improved and IV fluids are back to normal saline. No significant complaints this morning. PHYSICAL EXAMINATION: Blood pressure was 128/78, heart rate is 72 per minute. She is afebrile. Examination of the heart: S1, S2. Examination of the lungs: Bilateral breath sounds are heard. Abdomen is soft, nontender. Exam of lower extremities shows no significant edema. RESERVATIONS CLERK exam shows patient moving all 4 extremities. However, she does not communicate much. LABS: Shows sodium 140, potassium 4.0, BUN 25, serum creatinine 1.2, CO2 is 20, hemoglobin 9.5 g/dL. ASSESSMENT: 1. Acute kidney injury, acute tubular necrosis, nonoliguric secondary to sepsis, hypotension, currently improving. 2. Urinary tract infection. Urine culture grew E coli and Proteus. The patient is maintained on Zosyn. 3. Hypertension, currently controlled. 4. History of intracranial bleed associated with decreased mentation, currently stable from that standpoint. 5. Gastroesophageal reflux disease, maintained on Protonix. PLAN: Maintain IV fluids at 50 mL an hour. Monitor sodium. Encourage increased oral intake. MMODL / IJN: [id number] /
[2018-04-16] MEDS: CYANOCOBALAMIN 500 MCG TAB PO SCH (22:24)
[2018-04-16] MEDS: DONEPEZIL 10 MG TAB PO SCH (22:24)
[2018-04-16] MEDS: CHOLECALCIFEROL 1,000 UNIT TAB PO SCH (22:24)
[2018-04-16] MEDS: MELATONIN 3 MG TABLET PO SCH (22:25)
--- NOTE | 2018-04-16 23:35 | P.PN ---
Subjective Progress Note Date: 04/16/18 83-year-old female is transferred from extended care facility with worsening mental status. There is very little data available at the time of the consult. There however was a notation in the emergency center the patient relates she wasn't feeling well related to going to [facility]. However EMS documentation reveals that she was transferred to our facility from the [facility]. With this further investigation occurred since it was evident she was not at our facility recently, it however became evident that she was hospitalized at the other hospital in [facility]. During that stay there was evidence of an intra-parenchymal brain bleed that was limited. She has underlying dementia and is on Aricept. Apparently her status improved and she was transferred to the extended care facility. It is related that during her stay she has some shortness of breath and a computed tomography scan of her chest with contrast was performed to ensure there was not a pulmonary embolus and this was negative. The patient had a creatinine of 1.02 at the outside facility and had evidence of a normal white blood cell count of 7 and hemoglobin in the 10 range. It is related the time of her transfer that there was some shortness of breath and she was getting breathing treatments and a Solu-Medrol injection 125 mg. Infectious disease consultation was requested given his significant leukocytosis and concerns to sepsis. The patient herself is able to give no specific data at this time. 04/11/2018 patient remains in intensive care unit. Her leukocytosis has shown some improvement, her acute renal failure showing some improvement, her neurological status is also showing some brightening of her affect. She is afebrile. 04/12/2018 patient is showing some further improvement, family is pleased that she is more comfortable. Does have a ongoing waxing and waning mental status which is not new. 04/16/2018 patient has had some further improvement mental status is more stable. Objective - Vital Signs Vital signs: Vital Signs Temp 98.2 F 04/16/18 21:00 Pulse 79 04/16/18 21:00 Resp 16 04/16/18 21:00 BP 127/58 04/16/18 21:00 Pulse Ox 98 04/16/18 21:00 Intake & Output 04/16/18 04/16/18 04/17/18 06:59 18:59 06:59 Intake Total 200 Output Total 951 600 Balance -751 -600 Intake: IV 200 0.9% Normal Saline 200 Output: Urine 950 600 Uretheral (Yost) 950 600 Stool 1 Other: Voiding Method Indwelling Catheter Indwelling Catheter # Voids 0 1 1 # Bowel Movements 2 - Exam HEENT: Anicteric conjunctiva are pink and moist nasal mucosa grossly intact without significant lesions, there is no thrush. Neck: The neck is supple without significant lymphadenopathy or thyromegaly. Lungs: There is symmetrical bilateral air entry with few basilar crackles scattered wheezes are heard no bronchial sounds are noted. Heart: Irregular with an audible S1 and S2 soft S4 no distinct murmur click or rub is noted. PMI was nondisplaced. Abdomen: Few bowel sounds were heard, the abdomen is evidence of some mild generalized tenderness however there is very distinct tenderness in the bilateral lower quadrants with evidence of rebound tenderness. The abdomen is not grossly rigid but does have some mild firmness without palpable fluid wave. No hepatosplenomegaly was noted. Extremities: The upper extremities have excellent pulses they are symmetric, no significant petechiae or telangiectasia. No splinter hemorrhages were noted. Lower extremities evidence of trace bilateral pedal edema. She has evidence of some deformity to her feet from significant arthritis Neuro: The patient states hello but cannot recall her daughter's name. - Labs CBC & Chem 7: 04/16/18 09:19 04/16/18 09:19 Labs: Abnormal Lab Results - Last 24 Hours (Table) 04/16/18 04/16/18 Range/Units 09:19 09:19 WBC 16.2 H (3.8-10.6) k/uL RBC 3.23 L (3.80-5.40) m/uL Hgb 9.5 L (11.4-16.0) gm/dL Hct 28.6 L (34.0-46.0) % Neutrophils # 13.0 H (1.3-7.7) k/uL Chloride 112 H (98-107) mmol/L Carbon Dioxide 20 L (22-30) mmol/L BUN 25 H (7-17) mg/dL Creatinine 1.20 H (0.52-1.04) mg/dL Glucose 125 H (74-99) mg/dL Calcium 8.0 L (8.4-10.2) mg/dL AST 39 H (14-36) U/L ALT 92 H (9-52) U/L Total Protein 4.9 L (6.3-8.2) g/dL Albumin 2.3 L (3.5-5.0) g/dL Laboratory Results WBC 16.2 k/uL (3.8-10.6) H 04/16/18 09:19 RBC 3.23 m/uL (3.80-5.40) L 04/16/18 09:19 Hgb 9.5 gm/dL (11.4-16.0) L 04/16/18 09:19 Hct 28.6 % (34.0-46.0) L 04/16/18 09:19 MCV 88.6 fL (80.0-100.0) 04/16/18 09:19 MCH 29.6 pg (25.0-35.0) 04/16/18 09:19 MCHC 33.4 g/dL (31.0-37.0) 04/16/18 09:19 RDW 13.1 % (11.5-15.5) 04/16/18 09:19 Plt Count 374 k/uL (150-450) 04/16/18 09:19 Neutrophils % 80 % 04/16/18 09:19 Neutrophils % (Manual) 80 % 04/11/18 05:40 Band Neutrophils % 11 % 04/11/18 05:40 Lymphocytes % 10 % 04/16/18 09:19 Lymphocytes % (Manual) 7 % 04/11/18 05:40 Monocytes % 4 % 04/16/18 09:19 Monocytes % (Manual) 2 % 04/11/18 05:40 Eosinophils % 4 % 04/16/18 09:19 Basophils % 1 % 04/16/18 09:19 Metamyelocytes % 1 % 04/11/18 05:40 Myelocytes % 7 % 04/09/18 13:32 Neutrophils # 13.0 k/uL (1.3-7.7) H 04/16/18 09:19 Neutrophils # (Manual) 39.40 k/uL (1.3-7.7) H 04/11/18 05:40 Lymphocytes # 1.6 k/uL (1.0-4.8) 04/16/18 09:19 Lymphocytes # (Manual) 3.04 k/uL (1.0-4.8) 04/11/18 05:40 Monocytes # 0.7 k/uL (0-1.0) 04/16/18 09:19 Monocytes # (Manual) 0.87 k/uL (0-1.0) 04/11/18 05:40 Eosinophils # 0.6 k/uL (0-0.7) 04/16/18 09:19 Basophils # 0.1 k/uL (0-0.2) 04/16/18 09:19 Metamyelocytes # (Man) 0.43 k/uL (0) H 04/11/18 05:40 Myelocytes # (Manual) 4.80 k/uL (0) H 04/09/18 13:32 Nucleated RBCs 0 /100 WBC (0-0) 04/11/18 05:40 Manual Slide Review Performed 04/10/18 04:47 Toxic Granulation Present 04/11/18 05:40 Toxic Vacuolation Present 04/11/18 05:40 Dohle Bodies Present 04/09/18 13:32 Polychromasia Present 04/11/18 05:40 Hypochromasia Slight 04/13/18 09:31 Anisocytosis Slight 04/09/18 13:32 Macrocytosis Slight 04/09/18 13:32 Sample Site RRA 04/10/18 01:17 ABG pH 7.34 (7.35-7.45) L 04/10/18 01:17 ABG pCO2 33 mmHg (35-45) L 04/10/18 01:17 ABG pO2 95 mmHg (83-108) 04/10/18 01:17 ABG HCO3 18 mmol/L (21-25) L 04/10/18 01:17 ABG Total CO2 19 mmol/L (19-24) 04/10/18 01:17 ABG O2 Saturation 98.5 % (94-97) H 04/10/18 01:17 ABG Base Excess -8.0 mmol/L 04/10/18 01:17 Champ Test Yes 04/10/18 01:17 FiO2 28 % 04/10/18 01:17 Sodium 140 mmol/L (137-145) 04/16/18 09:19 Potassium 4.0 mmol/L (3.5-5.1) 04/16/18 09:19 Chloride 112 mmol/L (98-107) H 04/16/18 09:19 Carbon Dioxide 20 mmol/L (22-30) L 04/16/18 09:19 Anion Gap 8 mmol/L 04/16/18 09:19 BUN 25 mg/dL (7-17) H 04/16/18 09:19 Creatinine 1.20 mg/dL (0.52-1.04) H 04/16/18 09:19 Est GFR (CKD-EPI)AfAm 48 (>60 ml/min/1.73 sqM) 04/16/18 09:19 Est GFR (CKD-EPI)NonAf 42 (>60 ml/min/1.73 sqM) 04/16/18 09:19 Glucose 125 mg/dL (74-99) H 04/16/18 09:19 POC Glucose (mg/dL) 139 mg/dL (75-99) H 04/10/18 02:50 POC Glu Image Consultant Debra Nuñez 04/10/18 02:50 Lactic Ac Sepsis Rflx Y 04/10/18 00:47 Plasma Lactic Acid [place]on 1.5 mmol/L (0.7-2.0) 04/11/18 05:40 Calcium 8.0 mg/dL (8.4-10.2) L 04/16/18 09:19 Phosphorus 3.6 mg/dL (2.5-4.5) 04/14/18 08:29 Magnesium 1.8 mg/dL (1.6-2.3) 04/13/18 09:31 Total Bilirubin 1.0 mg/dL (0.2-1.3) 04/16/18 09:19 AST 39 U/L (14-36) H 04/16/18 09:19 ALT 92 U/L (9-52) H 04/16/18 09:19 Alkaline Phosphatase 106 U/L (38-126) 04/16/18 09:19 Ammonia 9 umol/L (<30) 04/09/18 13:32 Total Creatine Kinase 251 U/L (30-135) H 04/09/18 13:32 CK-MB (CK-2) 5.0 ng/mL (0.0-2.4) H 04/09/18 13:32 CK-MB (CK-2) Rel Index 2.0 04/09/18 13:32 Troponin I 0.181 ng/mL (0.000-0.034) H* 04/09/18 13:32 NT-Pro-B Natriuret Pep 47730 pg/mL 04/09/18 13:32 Total Protein 4.9 g/dL (6.3-8.2) L 04/16/18 09:19 Albumin 2.3 g/dL (3.5-5.0) L 04/16/18 09:19 Amylase 70 U/L (30-110) 04/09/18 13:32 Lipase 65 U/L (23-300) 04/09/18 13:32 Urine Color Yellow 04/09/18 13:32 Urine Appearance Cloudy (Clear) H 04/09/18 13:32 Urine pH 7.5 (5.0-8.0) 04/09/18 13:32 Ur Specific [place] 1.009 (1.001-1.035) 04/09/18 13:32 Urine Protein Trace (Negative) H 04/09/18 13:32 Urine Glucose (UA) Negative (Negative) 04/09/18 13:32 Urine Ketones Negative (Negative) 04/09/18 13:32 Urine Blood Moderate (Negative) H 04/09/18 13:32 Urine Nitrite Negative (Negative) 04/09/18 13:32 Urine Bilirubin Negative (Negative) 04/09/18 13:32 Urine Urobilinogen <2.0 mg/dL (<2.0) 04/09/18 13:32 Ur Leukocyte Esterase Large (Negative) H 04/09/18 13:32 Urine RBC 27 /hpf (0-5) H 04/09/18 13:32 Urine WBC 80 /hpf (0-5) H 04/09/18 13:32 Urine WBC Clumps Moderate /hpf (None) H 04/09/18 13:32 Ur Squamous Epith Cells <1 /hpf (0-4) 04/09/18 13:32 Urine Bacteria Moderate /hpf (None) H 04/09/18 13:32 Urine Mucus Rare /hpf (None) H 04/09/18 13:32 Stool Occult Blood Negative (Negative) 04/15/18 09:50 Stool Lactoferrin NEGATIVE (NEGATIVE) 04/15/18 09:50 C. difficile (EIA) Intrp Negative (Negative) 04/15/18 09:50 Influenza Type A RNA Not Detected (Not Detectd) 04/09/18 13:32 Influenza Type B (PCR) Not Detected (Not Detectd) 04/09/18 13:32 Microbiology 04/15/18 09:50 Stool Stool Culture - Preliminary 04/09/18 13:32 Blood Blood Culture - Final No Growth after 144 hours 04/10/18 18:40 Stool Stool Culture - Final 04/09/18 13:32 Urine,Voided Urine Culture - Final Escherichia coli Proteus mirabilis Assessment and Plan (1) Leukocytosis Narrative/Plan: 83-year-old female recently discharged from outside hospital and transferred to extended care facility after evidence of an intra-parenchymal brain bleed. She is a known history of dementia and is on Aricept. During her last stay there was concerns to pulmonary embolus and a CT angiogram was performed. Patient's mental status markedly reduced while she was at the outside facility because he was transferred to the emergency center for evaluation. There she is now with evidence of significant leukocytosis, acute renal failure and concerns to sepsis. The urinalysis is definitely abnormal, urine and blood cultures are pending. Antimicrobial therapy with Zosyn was begun given her history of recent hospitalization. She does not have a known history of MRSA infection is noted by review of the records from the outside hospital. Neurologic consult is in process in the care is discussed with both the neurologist as well as the critical care physician. Exam reveals evidence for very tender abdomen. With profound leukocytosis there is concerns to an acute abdominal process including ischemic colitis. The patient has had a stool this will be checked for C. diff as well as occult blood. White count will be followed and lactic acidosis should also be monitored. Zosyn would provide adequate antimicrobial coverage for sepsis from ischemic colitis. 04/11/2018 patient has had some improvement in her status with ongoing supportive care. The urinalysis is noted was abnormal and urine culture now has to gram-negative bacilli and Zosyn will be continued for now. Blood cultures are pending and negative so far. Her profound leukocytosis is showing some improvement. The stool for C. diff came back as negative, abdominal flat plate without evidence of ileus or free air. Stool for occult blood was also negative. The patient is being followed by neurology given her recent intraparenchymal brain bleed for which no intervention was requested. Await cultures to further direct antibiotic therapy. The patient's daughter and are present. The daughter is in the nursing field. At this time we discussed the patient's CODE STATUS and she relates that the father wants the patient to be full code so everything can be done. We discussed that no code does not mean no care it just means that we would not provide futile intervention such as chest compressions. I have asked her to discuss this with her father so that a more appropriate CODE STATUS can be obtained. 04/12/2018 patient has improved and is moved out of intensive care unit. No further fever is noted. Urine culture has evidence of Escherichia coli and Proteus mirabilis. She continues to have some abdominal pain and is being treated with Zosyn at this time. As she improves likely be transitioned to oral antibiotic therapy. Trimethoprim sulfamethoxazole would give us adequate coverage for the pathogens from the urinary system given the fact that there is no positive blood cultures. The stool is negative for C. diff, negative for occult blood and stool culture is negative so far. Her profound leukocytosis is also rapidly improving with the treatment of the sepsis from the urinary tract. Family is looking for the patient to potentially go to [facility] or return to the [facility]. Patient's and power of fruit trimmer desires full CODE STATUS at this time as related from the daughter. Will not require IV antibiotic therapy at the [facility]. 04/16/2018 status continues to be stable to improved. Discharge plan is in process. We'll complete a course of ciprofloxacin Current Visit: Yes Status: Acute Code(s): D72.829 - ELEVATED WHITE BLOOD CELL COUNT, UNSPECIFIED SNOMED Code(s): 554439807 (2) History of intraventricular hemorrhage Current Visit: Yes Status: Acute Code(s): Z86.79 - PERSONAL HISTORY OF OTHER DISEASES OF THE CIRCULATORY SYSTEM SNOMED Code(s): 045080817 (3) Acute renal failure (ARF) Current Visit: Yes Status: Acute Code(s): N17.9 - ACUTE KIDNEY FAILURE, UNSPECIFIED SNOMED Code(s): 81727232
[2018-04-17] MEDS: PIPERACILLIN-TAZOBACTAM 3.375 GM in DEXTROSE/WATER 1 50ML.BAG IVPB SCH ×3 (00:19→16:15)
[2018-04-17] MEDS: HEPARIN SODIUM,PORCINE 5,000 UNIT/ML 1 ML VIAL SQ SCH ×3 (00:19→16:14)
[2018-04-17 07:51] LABS: Basophils # (A) 0.1 k/uL (0-0.2); Basophils % (A) 1 %; Eosinophils # (A) 0.4 k/uL (0-0.7); Eosinophils % (A) 3 %; HCT 27.6 % (34.0-46.0); HGB 8.7 gm/dL (11.4-16.0); Hypochromasia Slight; Lymphocytes # (A) 1.7 k/uL (1.0-4.8); Lymphocytes % (A) 11 %; MCH 28.8 pg (25.0-35.0); MCHC 31.4 g/dL (31.0-37.0); MCV 91.6 fL (80.0-100.0); Mean Platelet Volume 7.2; Monocytes # (A) 0.7 k/uL (0-1.0); Monocytes % (A) 4 %; Neutrophils # (A) 12.4 k/uL (1.3-7.7); Neutrophils % (A) 80 %; Platelet Count 488 k/uL (150-450); RBC 3.02 m/uL (3.80-5.40); RDW 13.5 % (11.5-15.5); WBC 15.6 k/uL (3.8-10.6)
--- NOTE | 2018-04-17 07:55 | P.PN ---
Subjective Progress Note Date: 04/17/18 Principal diagnosis: CHF, acute respiratory failure, leukocytosis Progress note dated 04/17/2018 83-year-old female with history of multiple medical problems including sepsis/ urinary tract infection secondary to E. coli and Proteus mirabilis, acute kidney injury, anion gap metabolic acidosis, CHF, fluid overload, dementia, hydrocephalus, hypertension, CVA, Oscar's palsy, in general medical debility. The patient is poorly responsive. Doesn't really respond to any verbal stimuli. Looks very pale. Appears not to be in any respiratory distress although her cough is rather coarse and congested sounding. Not much history is obtained from the patient. Objective - Vital Signs Vital signs: Vital Signs Temp 97.5 F L 04/17/18 05:00 Pulse 67 04/17/18 05:00 Resp 20 04/17/18 05:00 BP 150/69 04/17/18 05:00 Pulse Ox 95 04/17/18 05:00 Intake & Output 04/16/18 04/17/18 04/17/18 18:59 06:59 18:59 Intake Total 400 Output Total 600 1 Balance -600 399 Intake: Intake, IV Titration 400 Amount Sodium Chloride 0.9% 1, 400 000 ml @ 50 mls/hr IV . Q20H [facility] Rx#:[id number] Output: Urine 600 Uretheral (Yost) 600 Stool 1 Other: Voiding Method Indwelling Catheter Indwelling Catheter # Voids 1 1 # Bowel Movements 2 - Exam No acute distress, poorly responsive. Nasal O2 in place. HEENT examination is grossly unremarkable. Mucous membranes are moist. No oral lesions. Neck supple. Full range of motion. No adenopathy thyromegaly or neck vein distention. Cardiovascular examination reveals regular rhythm rate. S1-S2 normal. No S3 or S4. No discernible murmur noted. Heart sounds are distant. Lungs reveal coarse bilateral breath sounds. Breath sounds equal bilaterally. No wheezes. No crackles. Her cough is wet congested sounding. Abdomen soft bowel sounds are heard. No masses or tenderness. Extremities are intact. No cyanosis clubbing or edema. Skin is without rash or lesion. Neurologic examination is very difficult to assess. - Labs CBC & Chem 7: 04/16/18 09:19 04/16/18 09:19 Labs: Abnormal Lab Results - Last 24 Hours (Table) 04/16/18 04/16/18 Range/Units 09:19 09:19 WBC 16.2 H (3.8-10.6) k/uL RBC 3.23 L (3.80-5.40) m/uL Hgb 9.5 L (11.4-16.0) gm/dL Hct 28.6 L (34.0-46.0) % Neutrophils # 13.0 H (1.3-7.7) k/uL Chloride 112 H (98-107) mmol/L Carbon Dioxide 20 L (22-30) mmol/L BUN 25 H (7-17) mg/dL Creatinine 1.20 H (0.52-1.04) mg/dL Glucose 125 H (74-99) mg/dL Calcium 8.0 L (8.4-10.2) mg/dL AST 39 H (14-36) U/L ALT 92 H (9-52) U/L Total Protein 4.9 L (6.3-8.2) g/dL Albumin 2.3 L (3.5-5.0) g/dL Assessment and Plan Assessment: Assessment Sepsis, secondary to urinary tract infection caused by E. coli and Proteus mirabilis. 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 The patient does have a wet congested cough. She is lying flat. I raised the bed to 45. Additional recommendations and suggestions are forthcoming. Prognosis is poor. CODE STATUS is still full. White count is 16.2, hemoglobin 9.5, hematocrit 28.6, and platelet count normal. Sodium is 140, potassium 4.0, chloride is 112 , and CO2 20. Anion gap normal. BUN is 25 and creatinine is 1.2. C. difficile studies are negative. Urine cultures from April 09 show E. coli and Proteus mirabilis. Other cultures are negative. Time with Patient: Less than 30
[2018-04-17] MEDS: IPRATROPIUM-ALBUTEROL 3 ML NEB INHALATION SCH ×4 (07:56→19:49)
[2018-04-17 08:10] LABS: Albumin 2.2 g/dL (3.5-5.0); Calcium 8.2 mg/dL (8.4-10.2); Potassium 4.1 mmol/L (3.5-5.1); Total Bilirubin 0.8 mg/dL (0.2-1.3); Total Protein 4.8 g/dL (6.3-8.2)
[2018-04-17] MEDS: METOPROLOL TARTRATE 12.5 MG TAB PO SCH ×2 (09:22→20:52)
[2018-04-17] MEDS: amLODIPine 10 MG TAB PO SCH (09:22)
[2018-04-17] MEDS: PANTOPRAZOLE 40 MG/10 ML VIAL IVP SCH (09:22)
[2018-04-17] MEDS: SODIUM CHLORIDE 0.9% 1,000 ML IV SCH (11:58)
[2018-04-17] MEDS: ALPRAZolam 0.25 MG TAB PO PRN (16:14)
--- NOTE | 2018-04-17 17:37 | PN ---
PROGRESS NOTE She was seen again on 04/17/2018. She has been hemodynamically stable. She does not verbalize any complaints to me. On physical examination: Blood pressure is 153/67, respiratory rate of 15, pulse rate of 75, temperature 97.9. HEENT is unremarkable. Chest reveals scattered rhonchi. Cardiovascular system with an S1, S2. Abdomen is soft. There is trace pedal edema. Labs reveal a white count of 15.6, hemoglobin of 8.7, platelet count of 488,000. Sodium 141, potassium 4.1, chloride 114, bicarb 21, BUN 24, creatinine 1.31. IMPRESSION: At this time is: 1. Anemia with worsening hemoglobin, which we will follow. 2. Sepsis with urinary tract infection. 3. Acute kidney injury. 4. Congestive heart failure with EF of only 20-25 percent. 5. History of cerebrovascular accident with dementia. 6. History of hydrocephalus with history of cervical bleed. At this point in time, we will check a CBC in the morning. Check a chest x-ray on her. Continue on her current medications. Her prognosis at this time continues to remain guarded. I did discuss my thoughts with the patient's nurse. MMODL / IJN: [id number] /
--- NOTE | 2018-04-17 18:58 | XR ---
EXAMINATION TYPE: XR chest 1V portable DATE OF EXAM: 04/17/2018 CLINICAL HISTORY: Difficulty breathing and CHF progress study. TECHNIQUE: Single AP portable upright view of the chest is obtained. COMPARISON: Chest x-ray from 6 days earlier FINDINGS: Cardiomegaly is redemonstrated. Diminished inspiration is seen on current study. There is diminished visualization of left hemidiaphragm, cannot rule out atelectasis and/or infiltrate at this level. Right lung remains clear. Atherosclerotic and ectatic thoracic aorta is redemonstrated. [place] us structures remain demineralized. IMPRESSION: Cardiomegaly redemonstrated. Diminished inspiration, cannot exclude developing atelectasi s and/or infiltrate in the left lung base. Consider progress two-view chest x-ray.
[2018-04-17] MEDS: MELATONIN 3 MG TABLET PO SCH (20:52)
[2018-04-17] MEDS: DONEPEZIL 10 MG TAB PO SCH (20:52)
[2018-04-18] MEDS: CHOLECALCIFEROL 1,000 UNIT TAB PO SCH ×2 (00:13→21:57)
[2018-04-18] MEDS: CYANOCOBALAMIN 500 MCG TAB PO SCH ×2 (00:13→21:58)
[2018-04-18] MEDS: HEPARIN SODIUM,PORCINE 5,000 UNIT/ML 1 ML VIAL SQ SCH ×3 (00:29→16:48)
[2018-04-18] MEDS: PIPERACILLIN-TAZOBACTAM 3.375 GM in DEXTROSE/WATER 1 50ML.BAG IVPB SCH ×3 (00:29→16:49)
[2018-04-18 06:54] LABS: Basophils # (A) 0.1 k/uL (0-0.2); Basophils % (A) 0 %; Eosinophils # (A) 0.1 k/uL (0-0.7); Eosinophils % (A) 0 %; HCT 26.1 % (34.0-46.0); HGB 8.6 gm/dL (11.4-16.0); Lymphocytes # (A) 1.3 k/uL (1.0-4.8); Lymphocytes % (A) 5 %; MCHC 33.2 g/dL (31.0-37.0); MCV 87.6 fL (80.0-100.0); Monocytes # (A) 1.2 k/uL (0-1.0); Monocytes % (A) 5 %; Neutrophils # (A) 23.7 k/uL (1.3-7.7); Neutrophils % (A) 89 %; Platelet Count 551 k/uL (150-450); RBC 2.97 m/uL (3.80-5.40); RDW 13.6 % (11.5-15.5); WBC 26.6 k/uL (3.8-10.6)
[2018-04-18 07:05] LABS: Albumin 2.4 g/dL (3.5-5.0); Calcium 8.2 mg/dL (8.4-10.2); Potassium 3.9 mmol/L (3.5-5.1); Total Protein 5.1 g/dL (6.3-8.2)
[2018-04-18] MEDS: IPRATROPIUM-ALBUTEROL 3 ML NEB INHALATION SCH ×4 (08:06→21:32)
[2018-04-18] MEDS: PANTOPRAZOLE 40 MG/10 ML VIAL IVP SCH (08:43)
[2018-04-18] MEDS: METOPROLOL TARTRATE 12.5 MG TAB PO SCH ×2 (08:43→21:59)
[2018-04-18] MEDS: amLODIPine 10 MG TAB PO SCH (08:44)
--- NOTE | 2018-04-18 10:00 | P.PN ---
Subjective Progress Note Date: 04/17/18 This patient is a 83-year-old female who was seen yesterday in the intensive care unit for evaluation of altered mental status and lethargy. Patient has a history of recent evaluation for lethargy and confusion. She underwent a MRI of the brain on 04/02/2018 which was reviewed yesterday with the patient and her daughter at bedside. MRI did reveal small areas of intraventricular hemorrhage. Follow-up computed tomography scan of the brain was done on 2017 which was reviewed yesterday with the family and the daughter at bedside. There was no evidence of any new areas of acute intraventricular intracerebral hemorrhage. Patient was showing improvement in her overall mental status as well yesterday. The patient clinically still shows signs of a diffuse metabolic encephalopathy. She is arousable but still quite confused at times. Today she continues to show clinically more cognitive awareness. She is able to answer questions even more easily today as compared to yesterday. Patient does have multiple medical problems including urinary tract infection secondary to E. coli and Proteus mirabilis. She also has being treated for acute kidney injury. All of these findings are consistent with her clinical finding of a diffuse metabolic encephalopathy. She likely has some degree of underlying dementia which is been made worse due to her complex medical history. Would continue aggressive treatment of her urinary tract infection and sepsis which hopefully should improve her overall condition once aggressively treated. We will continue close neurological follow-up for the patient during this admission. Objective - Vital Signs Vital signs: Vital Signs Temp 97.9 F 04/17/18 12:45 Pulse 86 04/17/18 20:06 Resp 15 04/17/18 12:45 BP 153/67 04/17/18 12:45 Pulse Ox 95 04/17/18 12:45 Intake & Output 04/17/18 04/17/18 04/18/18 06:59 18:59 06:59 Intake Total 400 Output Total 1 1 Balance 399 -1 Intake: Intake, IV Titration 400 Amount Sodium Chloride 0.9% 1, 400 000 ml @ 50 mls/hr IV . Q20H [facility] Rx#:[id number] Output: Stool 1 1 Other: Voiding Method Indwelling Catheter Incontinent # Voids 1 3 # Bowel Movements 1 - Exam Physical examination: PHYSICAL EXAMINATION: Patient is resting comfortably in bed. VITAL SIGNS: Blood pressure is [153/67]. Heart rate is [75]. Respiration is [15] . Temperature is [97.9]. HEENT: Head is atraumatic, neck is supple, there were no carotid bruits. CHEST: Lungs are clear to auscultation and percussion. CARDIAC: S1, S2 normal rate and rhythm. There is no murmur. ABDOMEN: Soft and nontender. Bowel sounds are present. EXTREMITIES: There is no pedal edema. Peripheral pulses are present. Neurological examination: Patient's neurological examination is unchanged from yesterday. The patient is examined today at bedside and appears to show signs of mild encephalopathy. - Labs CBC & Chem 7: 04/18/18 06:17 04/18/18 06:17 Labs: Abnormal Lab Results - Last 24 Hours (Table) 04/17/18 04/17/18 Range/Units 07:32 07:32 WBC 15.6 H (3.8-10.6) k/uL RBC 3.02 L (3.80-5.40) m/uL Hgb 8.7 L (11.4-16.0) gm/dL Hct 27.6 L (34.0-46.0) % Plt Count 488 H (150-450) k/uL Neutrophils # 12.4 H (1.3-7.7) k/uL Chloride 114 H (98-107) mmol/L Carbon Dioxide 21 L (22-30) mmol/L BUN 24 H (7-17) mg/dL Creatinine 1.31 H (0.52-1.04) mg/dL Calcium 8.2 L (8.4-10.2) mg/dL ALT 71 H (9-52) U/L Total Protein 4.8 L (6.3-8.2) g/dL Albumin 2.2 L (3.5-5.0) g/dL Assessment and Plan (1) Acute metabolic encephalopathy Current Visit: Yes Status: Acute Code(s): G93.41 - METABOLIC ENCEPHALOPATHY SNOMED Code(s): 10053266 (2) Dementia Current Visit: Yes Status: Acute Code(s): F03.90 - UNSPECIFIED DEMENTIA WITHOUT BEHAVIORAL DISTURBANCE SNOMED Code(s): 70246894 (3) History of intraventricular hemorrhage Current Visit: Yes Status: Acute Code(s): Z86.79 - PERSONAL HISTORY OF OTHER DISEASES OF THE CIRCULATORY SYSTEM SNOMED Code(s): 823838296 (4) Acute renal failure (ARF) Current Visit: Yes Status: Acute Code(s): N17.9 - ACUTE KIDNEY FAILURE, UNSPECIFIED SNOMED Code(s): 97504557 Plan: This patient is a 83-year-old right-handed white female who was transferred from [facility] yesterday evening for evaluation of altered mental status and increasing confusion. Patient was seen in the emergency room at [facility] by Dr. Biggs. She was very obtunded there in the ER yesterday evening and was sent for a computed tomography scan of the brain. CAT scan of the brain results are as noted above. There was no evidence for acute stroke or hemorrhage. Patient was found to have evidence of a very elevated white count in the 60,000 range. Urine analysis revealed her to have a urinary tract infection as well. She was started on Zosyn and admitted to the hospital for further management. She was also found to have evidence of acute kidney injury with an initial serum creatinine of 5.3. She was admitted initially admitted to the medical floor however she continued to show obtunded patient and worsening mental status changes and she was transferred to the intensive care unit. She was stabilized in ICU and then transferred to the medical floor where she is currently residing. Patient still continues to show signs of a diffuse metabolic encephalopathy secondary to her urinary tract infection and sepsis. Will await further recommendations from infectious disease. Patient still seems to wax and wane in terms of her mental status. She does have underlying dementia as well. She is being treated for acute urinary tract infection with positive urine cultures for E. coli and Proteus mirabilis. We will continue to follow her progress closely during this admission. Her overall prognosis at this time remains very guarded.
--- NOTE | 2018-04-18 11:12 | P.PN ---
Subjective Progress Note Date: 04/18/18 Principal diagnosis: This is a 83-year-old female seen in follow-up for acute kidney injury from UTI and hypotension, and septic syndrome. She grew E. coli and Proteus. Her creatinine improved to 1.2 but this morning it has gotten worse again. She remains somewhat obtunded she is being followed by the neurology service there was some intraventricular hemorrhage which is improving. She opens her eyes after multiple attempts at verbal communication with her and then she goes back to sleep. She is not following any commands. Supposedly she ate fairly well yesterday according to the nursing staff but very poor this morning for breakfast. I spoke to was in the room and she he tells me that she has had incontinence of urine for some time now. Her vital signs are stable she's afebrile except for this morning temperature was 99.2., Her urine output is documented at 18 51 mL. Intake as been definite 200 mL only for the day before yesterday and yesterday's output is 600 mL an intake 400 mL Objective - Vital Signs Vital signs: Vital Signs Temp 99.2 F 04/18/18 05:00 Pulse 86 04/18/18 08:18 Resp 24 04/18/18 05:00 BP 154/68 04/18/18 05:00 Pulse Ox 93 L 04/18/18 05:00 Intake & Output 04/17/18 04/18/18 04/18/18 18:59 06:59 18:59 Intake Total 150 Output Total 1 Balance -1 150 Intake: Intake, IV Titration 150 Amount Piperacillin-Tazobactam 3 50 .375 gm In Dextrose/Water 1 50ml.bag @ 12.5 mls/hr IVPB Q8HR [facility] Rx#: [id number] Sodium Chloride 0.9% 1, 100 000 ml @ 50 mls/hr IV . Q20H [facility] Rx#:[id number] Output: Stool 1 Other: Voiding Method Incontinent Incontinent # Voids 3 # Bowel Movements 1 On examination she is obtunded, opens eyes but does not follow any commands. HEENT exam no JVP neck is supple no facial asymmetry pupils are equal Lungs are clear to auscultation good air entry bilaterally Heart sounds are unremarkable no murmur rub gallop Abdomen soft nontender no masses felt Nondistended abdomen. Extremity exam reveals no edema Neurologically obtunded and difficult to arouse opens eyes and goes back to sleep. - Labs CBC & Chem 7: 04/18/18 06:17 04/18/18 06:17 Labs: Abnormal Lab Results - Last 24 Hours (Table) 04/18/18 04/18/18 Range/Units 06:17 06:17 WBC 26.6 H (3.8-10.6) k/uL RBC 2.97 L (3.80-5.40) m/uL Hgb 8.6 L (11.4-16.0) gm/dL Hct 26.1 L (34.0-46.0) % Plt Count 551 H (150-450) k/uL Neutrophils # 23.7 H (1.3-7.7) k/uL Monocytes # 1.2 H (0-1.0) k/uL Chloride 114 H (98-107) mmol/L Carbon Dioxide 20 L (22-30) mmol/L BUN 32 H (7-17) mg/dL Creatinine 2.29 H (0.52-1.04) mg/dL Glucose 127 H (74-99) mg/dL Calcium 8.2 L (8.4-10.2) mg/dL ALT 61 H (9-52) U/L Alkaline Phosphatase 128 H (38-126) U/L Total Protein 5.1 L (6.3-8.2) g/dL Albumin 2.4 L (3.5-5.0) g/dL Assessment and Plan Assessment: Impression 1. Acute kidney injury from septic syndrome hypotension and UTI with E. coli and Proteus. Creatinine improved from a peak of 5.37 on admission on 2017 to 1.22 days ago and then started to come up again to 1.31 and 2.29 this morning. This may be a reflection off volume depletion. Rule out urinary retention with history of incontinence of urine in the past prior to this admission 2. E. coli and Proteus UTI. 3. Metabolic encephalopathy, patient is a [facility] resident. MRI showed small areas intraventricular hemorrhage and a follow-up computed tomography scan shows no significant worsening. 4. Anemia of chronic illness hemoglobin is 8.6 slowly coming down. 5. Worsening leukocytosis rule out new infection. 6. Mild degree of non-gap acidosis bicarb 20 and gap of 8. Recommendation 1. Check postvoid residual. 2. Start IV fluids normal saline at 60 an hour. 3. Watch for sepsis. A chest x-ray yesterday was reported as cardiomegaly unchanged, possible atelectasis or infiltrate and left lung base
[2018-04-18] MEDS: SODIUM CHLORIDE 0.9% 1,000 ML IV SCH (14:07)
[2018-04-18] MEDS: MELATONIN 3 MG TABLET PO SCH (21:59)
[2018-04-18] MEDS: DONEPEZIL 10 MG TAB PO SCH (21:59)
[2018-04-19] MEDS: PIPERACILLIN-TAZOBACTAM 3.375 GM in DEXTROSE/WATER 1 50ML.BAG IVPB SCH ×3 (00:09→21:06)
[2018-04-19] MEDS: HEPARIN SODIUM,PORCINE 5,000 UNIT/ML 1 ML VIAL SQ SCH ×3 (00:09→17:54)
[2018-04-19] MEDS: SODIUM CHLORIDE 0.9% 1,000 ML IV SCH ×2 (00:14→21:06)
--- NOTE | 2018-04-19 00:20 | PN ---
PROGRESS NOTE SUBJECTIVE: 83-year-old white female with metabolic encephalopathy, dementia, history of intracerebral hemorrhage which is not worsening, acute kidney injury, sepsis with urinary tract infection, anemia, systolic heart failure, ejection fraction 20-25%, recent stroke, hydrocephalus. Still remains confused, but is less confused than before. She does answer questions. She is trying to get up out of bed, which is a sign of her getting better. Blood pressure is 140s to 150s over 60s, respiratory rate is 12 to 16, temp 97.9. Cardiovascular S1, S2. Abdomen is soft. Hematology negative Homans. Psych fair mood and does respond to questions. Chest x-ray is reviewed. Labs reviewed. Hemoglobins up to 8.6, white count up to 26.6. We will get Dr. Pandya's recommendations at this time per Dr. Garcia due to worsening white count. MMODL / IJN: [id number] /
[2018-04-19] MEDS: IPRATROPIUM-ALBUTEROL 3 ML NEB INHALATION SCH ×4 (07:23→20:48)
[2018-04-19] MEDS: METOPROLOL TARTRATE 12.5 MG TAB PO SCH ×2 (07:42→20:28)
[2018-04-19] MEDS: amLODIPine 10 MG TAB PO SCH (07:43)
[2018-04-19] MEDS: PANTOPRAZOLE 40 MG/10 ML VIAL IVP SCH (07:44)
[2018-04-19 07:46] LABS: Basophils # (A) 0.1 k/uL (0-0.2); Basophils % (A) 1 %; Eosinophils # (A) 0.3 k/uL (0-0.7); Eosinophils % (A) 3 %; HCT 24.5 % (34.0-46.0); HGB 7.9 gm/dL (11.4-16.0); Lymphocytes # (A) 1.7 k/uL (1.0-4.8); Lymphocytes % (A) 13 %; MCH 29.2 pg (25.0-35.0); MCHC 32.2 g/dL (31.0-37.0); MCV 90.7 fL (80.0-100.0); Mean Platelet Volume 7.4; Monocytes # (A) 0.7 k/uL (0-1.0); Monocytes % (A) 6 %; Neutrophils # (A) 9.3 k/uL (1.3-7.7); Neutrophils % (A) 75 %; Platelet Count 552 k/uL (150-450); RDW 13.8 % (11.5-15.5); WBC 12.4 k/uL (3.8-10.6)
[2018-04-19 08:05] LABS: Albumin 2.1 g/dL (3.5-5.0); Calcium 7.8 mg/dL (8.4-10.2); Potassium 4.6 mmol/L (3.5-5.1); Total Bilirubin 0.5 mg/dL (0.2-1.3); Total Protein 4.7 g/dL (6.3-8.2)
--- NOTE | 2018-04-19 17:15 | PN ---
PROGRESS NOTE Patient is seen for followup for acute kidney injury. She is currently lying in bed. Patient denies any significant complaints. Renal function has been improving. Creatinine is down to 1.8 mg/dL. Her creatinine was down to 1.2. It did go up to 2.29. The patient had urine retention. Currently she has a Yost catheter. Urine output is excellent; patient had about a 1000 mL over 24 hours. On examination, blood pressure is 146/76, heart rate 74 per minute. She is afebrile. EXAMINATION OF THE HEART: S1, S2. EXAMINATION OF LUNGS: Bilateral breath sounds are heard. ABDOMEN: Soft, non-tender. Examination of lower extremities shows no evidence of edema. OUTSIDE UPHOLSTERER exam shows patient has been moving all 4 extremities. She has been confused occasionally but sometimes answers simple questions. Labs show sodium 144, potassium 4.6, BUN 32, serum creatinine 1.8, hemoglobin 7.9 g/dL. ASSESSMENT: 1. Acute kidney injury, acute tubular necrosis initially, associated with hypotension, hypoperfusion. Renal function had improved with creatinine down to 1.2 mg/dL. Patient developed urine retention. Creatinine had gone up to 2.29 yesterday. She has an indwelling Yost catheter and her creatinine today is down to 1.8. Patient is doing fairly well. 2. Urinary tract infection with Escherichia coli and Proteus mirabilis. 3. Dementia. 4. Volume depletion, currently maintained on IV fluids at 50 mL/hour. 5. Hypernatremia, now resolved. PLAN: Continue to encourage increased oral intake. Continue with saline at 50 mL/hour. Repeat labs in a.m. MMODL / IJN: [id number] /
--- NOTE | 2018-04-19 20:00 | PN ---
PROGRESS NOTE SUBJECTIVE: 83-year-old admitted with acute kidney injury. Renal function improving. Creatinine down to 1.8. She had some urinary retention. She has a Yost catheter. Urine output is excellent. White count was up to 26, now down to 12. Possibly a leukemoid reaction or lab error yesterday. Lungs are clear. She is talking more, given appropriate answers, but confused. Answers simple questions. ASSESSMENT: 1. Acute kidney injury. 2. Hypertension, improving. 3. Urinary tract infection on antibiotics. 4. Dementia. 5. Dehydration. 6. Hyponatremia, improved. Increased oral uptake. Continue normal saline. Repeat labs in the morning. Await for infection recommendations for discharge. MMODL / IJN: [id number] /
[2018-04-19] MEDS: DONEPEZIL 10 MG TAB PO SCH (20:28)
[2018-04-19] MEDS: CYANOCOBALAMIN 500 MCG TAB PO SCH (20:28)
[2018-04-19] MEDS: CHOLECALCIFEROL 1,000 UNIT TAB PO SCH (20:28)
[2018-04-19] MEDS: MELATONIN 3 MG TABLET PO SCH (20:28)
--- NOTE | 2018-04-19 22:24 | P.PN ---
Subjective Progress Note Date: 04/19/18 This patient is a 83-year-old female who was seen yesterday in the intensive care unit for evaluation of altered mental status and lethargy. Patient has a history of recent evaluation for lethargy and confusion. She underwent a MRI of the brain on 04/02/2018 which was reviewed yesterday with the patient and her daughter at bedside. MRI did reveal small areas of intraventricular hemorrhage. Follow-up computed tomography scan of the brain was done on 2017 which was reviewed yesterday with the family and the daughter at bedside. There was no evidence of any new areas of acute intraventricular intracerebral hemorrhage. Patient was showing improvement in her overall mental status as well yesterday. The patient clinically still shows signs of a diffuse metabolic encephalopathy. She is arousable but still quite confused at times. Today she continues to show clinically more cognitive awareness. She is able to answer questions even more easily today as compared to yesterday. Patient does have multiple medical problems including urinary tract infection secondary to E. coli and Proteus mirabilis. She also has being treated for acute kidney injury. All of these findings are consistent with her clinical finding of a diffuse metabolic encephalopathy. She likely has some degree of underlying dementia which is been made worse due to her complex medical history. Would continue aggressive treatment of her urinary tract infection and sepsis which hopefully should improve her overall condition once aggressively treated. The patient is being given a breathing treatment this evening by respiratory therapy. She being treated with Douneb. She is doing about the same in terms of her mental status in that she is able to answer simple questions. She denies any focal weakness or headaches today on examination. We will continue to follow her progress closely during this admission. We will await further recommendations from multiple specialists at her seeing her. She is continuing to show improvement in her overall recovery from metabolic encephalopathy on admission. She is being followed closely by nephrology. She is being treated for urinary tract infection with Proteus. She is currently on multiple antibiotic coverage. We will continue to monitor progress during this admission very closely. Her overall prognosis at this time remains guarded. Objective - Vital Signs Vital signs: Vital Signs Temp 98.8 F 04/19/18 21:00 Pulse 80 04/19/18 21:00 Resp 16 04/19/18 21:00 BP 132/62 04/19/18 21:00 Pulse Ox 97 10/15/18 21:00 Intake & Output 04/19/18 04/19/18 04/20/18 06:59 18:59 06:59 Intake Total 850 400 Output Total 1000 1003 Balance -150 -603 Weight 75.3 kg Intake: Intake, IV Titration 650 400 Amount Piperacillin-Tazobactam 3 50 .375 gm In Dextrose/Water 1 50ml.bag @ 12.5 mls/hr IVPB Q8HR [facility] Rx#: [id number] Sodium Chloride 0.9% 1, 600 400 000 ml @ 50 mls/hr IV . Q20H [facility] Rx#:[id number] Oral 200 Output: Urine 1000 1000 Stool 3 Other: Voiding Method Indwelling Catheter Indwelling Catheter # Voids 1 - Exam Physical examination: PHYSICAL EXAMINATION: Patient is resting comfortably in bed. VITAL SIGNS: Blood pressure is [132/62]. Heart rate is [80]. Respiration is [16] . Temperature is [98.8]. HEENT: Head is atraumatic, neck is supple, there were no carotid bruits. CHEST: Lungs are clear to auscultation and percussion. CARDIAC: S1, S2 normal rate and rhythm. There is no murmur. ABDOMEN: Soft and nontender. Bowel sounds are present. EXTREMITIES: There is no pedal edema. Peripheral pulses are present. Neurological examination: Patient's neurological examination is unchanged from yesterday. The patient is examined today at bedside and appears to show signs of mild encephalopathy. Her encephalopathy continues to show slight improvement daily. She is currently being treated for COPD and has a breathing treatment ongoing at this time. - Labs CBC & Chem 7: 04/19/18 07:05 04/19/18 07:05 Labs: Abnormal Lab Results - Last 24 Hours (Table) 04/19/18 04/19/18 Range/Units 07:05 07:05 WBC 12.4 H (3.8-10.6) k/uL RBC 2.70 L (3.80-5.40) m/uL Hgb 7.9 L (11.4-16.0) gm/dL Hct 24.5 L (34.0-46.0) % Plt Count 552 H (150-450) k/uL Neutrophils # 9.3 H (1.3-7.7) k/uL Chloride 117 H (98-107) mmol/L Carbon Dioxide 21 L (22-30) mmol/L BUN 32 H (7-17) mg/dL Creatinine 1.88 H (0.52-1.04) mg/dL Calcium 7.8 L (8.4-10.2) mg/dL Total Protein 4.7 L (6.3-8.2) g/dL Albumin 2.1 L (3.5-5.0) g/dL Microbiology - Last 24 Hours (Table) 04/19/18 04:05 Stool Culture - Preliminary Stool 04/15/18 09:50 Stool Culture - Final Stool Assessment and Plan (1) Acute metabolic encephalopathy Current Visit: Yes Status: Acute Code(s): G93.41 - METABOLIC ENCEPHALOPATHY SNOMED Code(s): 13238731 (2) Dementia Current Visit: Yes Status: Acute Code(s): F03.90 - UNSPECIFIED DEMENTIA WITHOUT BEHAVIORAL DISTURBANCE SNOMED Code(s): 91825670 (3) History of intraventricular hemorrhage Current Visit: Yes Status: Acute Code(s): Z86.79 - PERSONAL HISTORY OF OTHER DISEASES OF THE CIRCULATORY SYSTEM SNOMED Code(s): 189195274 (4) Acute renal failure (ARF) Current Visit: Yes Status: Acute Code(s): N17.9 - ACUTE KIDNEY FAILURE, UNSPECIFIED SNOMED Code(s): 63685785 Plan: This patient is a 83-year-old right-handed white female who was transferred from [facility] yesterday evening for evaluation of altered mental status and increasing confusion. Patient was seen in the emergency room at [facility] by Dr. Biggs. She was very obtunded there in the ER yesterday evening and was sent for a computed tomography scan of the brain. CAT scan of the brain results are as noted above. There was no evidence for acute stroke or hemorrhage. Patient was found to have evidence of a very elevated white count in the 60,000 range. Urine analysis revealed her to have a urinary tract infection as well. She was started on Zosyn and admitted to the hospital for further management. She was also found to have evidence of acute kidney injury with an initial serum creatinine of 5.3. She was admitted initially admitted to the medical floor however she continued to show obtunded patient and worsening mental status changes and she was transferred to the intensive care unit. She was stabilized in ICU and then transferred to the medical floor where she is currently residing. Patient still continues to show signs of a diffuse metabolic encephalopathy secondary to her urinary tract infection and sepsis. Will await further recommendations from infectious disease. Patient still seems to wax and wane in terms of her mental status. She does have underlying dementia as well. She is being treated for acute urinary tract infection with positive urine cultures for E. coli and Proteus mirabilis. She is recovering nicely from her metabolic encephalopathy secondary to urinary tract infection. She does seem to follow all simple commands. She is undergoing breathing treatment today at bedside. This is been helpful for her overall breathing status. We will continue to monitor progress closely during this admission as she makes slow recovery to baseline. Her overall prognosis at this time remains very guarded.
[2018-04-20] MEDS: HEPARIN SODIUM,PORCINE 5,000 UNIT/ML 1 ML VIAL SQ SCH ×3 (00:30→17:30)
[2018-04-20 07:55] LABS: Basophils # (A) 0.1 k/uL (0-0.2); Basophils % (A) 1 %; Eosinophils # (A) 0.4 k/uL (0-0.7); Eosinophils % (A) 4 %; HCT 25.6 % (34.0-46.0); HGB 7.9 gm/dL (11.4-16.0); Hypochromasia Slight; Lymphocytes # (A) 1.6 k/uL (1.0-4.8); Lymphocytes % (A) 17 %; MCH 28.1 pg (25.0-35.0); MCHC 30.7 g/dL (31.0-37.0); MCV 91.6 fL (80.0-100.0); Mean Platelet Volume 7.5; Monocytes # (A) 0.6 k/uL (0-1.0); Monocytes % (A) 6 %; Neutrophils # (A) 6.8 k/uL (1.3-7.7); Neutrophils % (A) 71 %; Platelet Count 618 k/uL (150-450); RDW 13.8 % (11.5-15.5); WBC 9.6 k/uL (3.8-10.6)
[2018-04-20] MEDS: IPRATROPIUM-ALBUTEROL 3 ML NEB INHALATION SCH ×4 (08:03→19:25)
[2018-04-20 08:10] LABS: Albumin 2.3 g/dL (3.5-5.0); Potassium 4.3 mmol/L (3.5-5.1); Total Bilirubin 0.4 mg/dL (0.2-1.3); Total Protein 5.1 g/dL (6.3-8.2)
[2018-04-20] MEDS: amLODIPine 10 MG TAB PO SCH (08:14)
[2018-04-20] MEDS: METOPROLOL TARTRATE 12.5 MG TAB PO SCH ×2 (08:14→21:19)
[2018-04-20] MEDS: PANTOPRAZOLE 40 MG/10 ML VIAL IVP SCH (08:15)
[2018-04-20] MEDS: PIPERACILLIN-TAZOBACTAM 3.375 GM in DEXTROSE/WATER 1 50ML.BAG IVPB SCH ×2 (10:45→18:38)
[2018-04-20] MEDS: SODIUM CHLORIDE 0.9% 1,000 ML IV SCH (11:58)
--- NOTE | 2018-04-20 14:19 | P.PN ---
Subjective Patient is seen in follow-up for acute kidney injury. Renal function is improving with creatinine down to 1.34 today. She is currently being treated for E. coli and Proteus UTI. Also has a Yost catheter in place for urinary retention. She is maintained on normal saline at 50 mL an hour. Oral intake is fair. Denies chest pain or shortness of breath. Vital signs are stable. General: The patient appeared well nourished and normally developed. HEENT: Head exam is unremarkable. Neck is without jugular venous distension. LUNGS: Lungs are clear to auscultation and percussion. Breath sounds decreased. HEART: Rate and Rhythm are regular. First and second heart sounds normal. No murmurs, rubs or gallops. ABDOMEN: Abdominal exam reveals normal bowel sounds. Non-tender and non- distended. No evidence of peritonitis. EXTREMITITES: No clubbing, cyanosis, or edema. Objective - Vital Signs Vital signs: Vital Signs Temp 97.1 F L 04/20/18 12:29 Pulse 78 04/20/18 12:29 Resp 14 04/20/18 12:29 BP 147/87 04/20/18 12:29 Pulse Ox 98 04/20/18 08:05 Intake & Output 04/19/18 04/20/18 04/20/18 18:59 06:59 18:59 Intake Total 520 370 Output Total 1003 1701 Balance -483 -1331 Weight 75.3 kg 75.3 kg 75.3 kg Intake: IV 200 0.9% Normal Saline 200 Intake, IV Titration 400 50 Amount Piperacillin-Tazobactam 3 50 .375 gm In Dextrose/Water 1 50ml.bag @ 12.5 mls/hr IVPB Q12HR [facility] Rx#: [id number] Sodium Chloride 0.9% 1, 400 000 ml @ 50 mls/hr IV . Q20H [facility] Rx#:[id number] Oral 120 120 Output: Urine 1000 1700 Stool 3 1 Other: Voiding Method Indwelling Catheter Indwelling Catheter Indwelling Catheter # Voids 1 # Bowel Movements 1 - Labs CBC & Chem 7: 04/20/18 06:57 04/20/18 06:57 Labs: Abnormal Lab Results - Last 24 Hours (Table) 04/20/18 04/20/18 Range/Units 06:57 06:57 RBC 2.80 L (3.80-5.40) m/uL Hgb 7.9 L (11.4-16.0) gm/dL Hct 25.6 L (34.0-46.0) % MCHC 30.7 L (31.0-37.0) g/dL Plt Count 618 H (150-450) k/uL Chloride 118 H (98-107) mmol/L Carbon Dioxide 21 L (22-30) mmol/L BUN 30 H (7-17) mg/dL Creatinine 1.34 H (0.52-1.04) mg/dL Calcium 8.0 L (8.4-10.2) mg/dL Total Protein 5.1 L (6.3-8.2) g/dL Albumin 2.3 L (3.5-5.0) g/dL Microbiology - Last 24 Hours (Table) 04/19/18 04:05 Stool Culture - Preliminary Stool 04/15/18 09:50 Stool Culture - Final Stool Assessment and Plan Plan: Assessment: 1. Nonoliguric acute kidney injury secondary to ATN secondary to hypotension and infection. Also component of urinary retention. Renal function improving with creatinine down to 1.34 today. Creatinine in August 2014 was 0.9. 2. UTI with urine culture positive for E. coli and Proteus maintained on antibiotics. 3. Dementia. 4. Hypernatremia. Resolved. 5. Mild metabolic acidosis secondary to acute kidney injury. 6. Anemia. Rule out iron deficiency. 7. Urinary retention status post Yost catheter placement. Plan: Continue normal saline at 50 mL an hour. Monitor bicarb. Check iron studies. Encourage oral intake. Repeat electrolytes in the morning.
--- NOTE | 2018-04-20 16:19 | P.GSCN ---
<Leslie Ballesteros Christiane - Last Filed: 04/20/18 15:59> History of Present Illness Consult date: 04/20/18 Reason for Consult: Questionable colitis increasing WBC History of present illness: 83-year-old female being seen at the request of the attending for surgical eval for abdominal pain possible colitis with elevated white count. Patient is a poor historian has dementia. Patient has a history of confusion. Underwent an MRI of the brain 04/02/2018 it did show small areas of intraventricularv hemorrhage in the brain April 14 showed no evidence of any new areas. Only improved. Patient's currently being treated for UTI with Proteus currently on multiple antibiotic coverage with infectious disease following patient patient does not consistently follow simple commands sitting up in a chair currently. Being followed by multiple consulting physicians nursing reports patient has had frequent liquid loose stool the white count this morning is 9.6 on admission April 20.2 no acute tra-abdominal process Review of Systems Not able to obtain cannot recall Past Medical History Past Medical History: CVA/TIA, Hypertension, Sleep Apnea/CPAP/BIPAP Additional Past Medical History / Comment(s): BELLS PALSY, History of Any Multi-Drug Resistant Organisms: None Reported Past Surgical History: Appendectomy, Cholecystectomy, Hysterectomy, Orthopedic Surgery, Tonsillectomy Additional Past Surgical History / Comment(s): D&C, CATARACT Past Anesthesia/Blood Transfusion Reactions: Unable to Obtain Past Psychological History: Unable to Obtain Smoking Status: Unknown if ever smoked Past Alcohol Use History: None Reported Past Drug Use History: None Reported - Past Family History Father Family Medical History: Unable to Obtain Mother Family Medical History: Unable to Obtain Medications and Allergies Home Medications Medication Instructions Recorded Confirmed Type Metoprolol Tartrate [Lopressor] 25 mg PO BID 11/05/13 04/09/18 History ALPRAZolam [Xanax] 0.25 mg PO DAILY PRN 04/09/18 04/09/18 History Acetaminophen Tab [Tylenol Tab] 650 mg PO Q6H PRN MDD 3 GRAMS 04/09/18 04/09/18 History Amoxicillin/Potassium Clav 1 tab PO Q12HR 04/09/18 04/09/18 History [Augmentin 875-125 Tablet] Cholecalciferol [Vitamin D3] 2,000 unit PO HS 04/09/18 04/09/18 History Cyanocobalamin (Vitamin B-12) 1,000 mcg PO HS 04/09/18 04/09/18 History [Vitamin B-12] Donepezil [Aricept] 10 mg PO HS 04/09/18 04/09/18 History Ipratropium-Albuterol Nebulize 3 ml INHALATION RT-Q4H 04/09/18 04/09/18 History [Duoneb 0.5 mg-3 mg/3 ml Soln] Losartan Potassium 50 mg PO BID 04/09/18 04/09/18 History Melatonin 3 mg PO HS 04/09/18 04/09/18 History amLODIPine [Norvasc] 10 mg PO DAILY 04/09/18 04/09/18 History cefTRIAXone [Rocephin] 1,000 mg IM ONCE 04/09/18 04/09/18 History Allergies Allergy/AdvReac Type Severity Reaction Status Date / Time ciprofloxacin [From Cipro] Allergy Unknown Verified 04/09/18 13:37 memantine [From Namenda] Allergy Unknown Verified 04/09/18 13:37 metronidazole [From Flagyl] Allergy Unknown Verified 04/09/18 13:37 Surgical - Exam Vital Signs Temp Pulse Resp BP Pulse Ox 97 F L 73 22 120/83 100 04/09/18 13:28 04/09/18 13:28 04/09/18 13:28 04/09/18 13:28 04/09/18 13:28 GENERAL APPEARANCE: 83 -year-old female sitting up in a chair oriented to self only does not consistently follow simple commands patient is alert, in no acute distress. VITAL SIGNS: Reviewed HEENT: Head is normocephalic and atraumatic. Pupils are equal and reactive. The nares are patent. Oropharynx is clear without lesions. NECK: Supple without lymphadenopathy. Traches midline. HEART: S1, S2. Regular rate and rhythm. No murmur LUNGS: No crackles or wheezes are heard. No shortness ABDOMEN: Soft, nontender, nondistended with good bowel sounds. No peritoneal signs. No palpable organomegaly or masses. EXTREMITIES: Normal skin color and turgor. No cyanosis, rash, ulceration, clubbing or edema. Radial pedal pulses are 2/4 bilaterally. Results - Labs 04/20/18 06:57 04/20/18 06:57 Abnormal Lab Results - Last 24 Hours (Table) 04/20/18 04/20/18 Range/Units 06:57 06:57 RBC 2.80 L (3.80-5.40) m/uL Hgb 7.9 L (11.4-16.0) gm/dL Hct 25.6 L (34.0-46.0) % MCHC 30.7 L (31.0-37.0) g/dL Plt Count 618 H (150-450) k/uL Chloride 118 H (98-107) mmol/L Carbon Dioxide 21 L (22-30) mmol/L BUN 30 H (7-17) mg/dL Creatinine 1.34 H (0.52-1.04) mg/dL Calcium 8.0 L (8.4-10.2) mg/dL Total Protein 5.1 L (6.3-8.2) g/dL Albumin 2.3 L (3.5-5.0) g/dL Microbiology - Last 24 Hours (Table) 04/19/18 04:05 Stool Culture - Preliminary Stool Diabetes panel 04/20/18 Range/Units 06:57 Sodium 143 (137-145) mmol/L Potassium 4.3 (3.5-5.1) mmol/L Chloride 118 H (98-107) mmol/L Carbon Dioxide 21 L (22-30) mmol/L BUN 30 H (7-17) mg/dL Creatinine 1.34 H (0.52-1.04) mg/dL Glucose 94 (74-99) mg/dL Calcium 8.0 L (8.4-10.2) mg/dL AST 17 (14-36) U/L ALT 41 (9-52) U/L Alkaline Phosphatase 82 (38-126) U/L Total Protein 5.1 L (6.3-8.2) g/dL Albumin 2.3 L (3.5-5.0) g/dL Calcium panel 04/20/18 Range/Units 06:57 Calcium 8.0 L (8.4-10.2) mg/dL Albumin 2.3 L (3.5-5.0) g/dL Pituitary panel 04/20/18 Range/Units 06:57 Sodium 143 (137-145) mmol/L Potassium 4.3 (3.5-5.1) mmol/L Chloride 118 H (98-107) mmol/L Carbon Dioxide 21 L (22-30) mmol/L BUN 30 H (7-17) mg/dL Creatinine 1.34 H (0.52-1.04) mg/dL Glucose 94 (74-99) mg/dL Calcium 8.0 L (8.4-10.2) mg/dL Adrenal panel 04/20/18 Range/Units 06:57 Sodium 143 (137-145) mmol/L Potassium 4.3 (3.5-5.1) mmol/L Chloride 118 H (98-107) mmol/L Carbon Dioxide 21 L (22-30) mmol/L BUN 30 H (7-17) mg/dL Creatinine 1.34 H (0.52-1.04) mg/dL Glucose 94 (74-99) mg/dL Calcium 8.0 L (8.4-10.2) mg/dL Total Bilirubin 0.4 (0.2-1.3) mg/dL AST 17 (14-36) U/L ALT 41 (9-52) U/L Alkaline Phosphatase 82 (38-126) U/L Total Protein 5.1 L (6.3-8.2) g/dL Albumin 2.3 L (3.5-5.0) g/dL Assessment and Plan Assessment: Impression Dementia with no behavior disturbance Urinary retention status post Yost catheter placement Hypernatremia resolved UTI with urine culture positive for E. coli and Proteus on antibiotics Anemia. Iron Deficiency to be ruled out leukocytosis trending down infectious disease following Stool for C. diff negative negative for occult blood as well profound leukocytosis is improving Plan no evidence of an acute surgical abdomen at this time Conservative measures Full CODE STATUS noted Repeat labs in the morning Repeat an abdominal x-ray in the morning Further surgical recommendations pending clinical course will follow with you Surgical consultation dictated for dr cooley The above impression and plan of care have been discussed and directed by signing physician. Leslie Ballesteros nurse practitioner acting as scribe for signing physician. <Geoff Cooley - Last Filed: 04/20/18 18:21> Surgical - Exam Vital Signs Temp Pulse Resp BP Pulse Ox 97 F L 73 22 120/83 100 04/09/18 13:28 04/09/18 13:28 04/09/18 13:28 04/09/18 13:28 04/09/18 13:28 Results - Labs 10/16/18 06:57 04/20/18 06:57 Abnormal Lab Results - Last 24 Hours (Table) 04/20/18 04/20/18 Range/Units 06:57 06:57 RBC 2.80 L (3.80-5.40) m/uL Hgb 7.9 L (11.4-16.0) gm/dL Hct 25.6 L (34.0-46.0) % MCHC 30.7 L (31.0-37.0) g/dL Plt Count 618 H (150-450) k/uL Chloride 118 H (98-107) mmol/L Carbon Dioxide 21 L (22-30) mmol/L BUN 30 H (7-17) mg/dL Creatinine 1.34 H (0.52-1.04) mg/dL Calcium 8.0 L (8.4-10.2) mg/dL Total Protein 5.1 L (6.3-8.2) g/dL Albumin 2.3 L (3.5-5.0) g/dL Diabetes panel 04/20/18 Range/Units 06:57 Sodium 143 (137-145) mmol/L Potassium 4.3 (3.5-5.1) mmol/L Chloride 118 H (98-107) mmol/L Carbon Dioxide 21 L (22-30) mmol/L BUN 30 H (7-17) mg/dL Creatinine 1.34 H (0.52-1.04) mg/dL Glucose 94 (74-99) mg/dL Calcium 8.0 L (8.4-10.2) mg/dL AST 17 (14-36) U/L ALT 41 (9-52) U/L Alkaline Phosphatase 82 (38-126) U/L Total Protein 5.1 L (6.3-8.2) g/dL Albumin 2.3 L (3.5-5.0) g/dL Calcium panel 04/20/18 Range/Units 06:57 Calcium 8.0 L (8.4-10.2) mg/dL Albumin 2.3 L (3.5-5.0) g/dL Pituitary panel 04/20/18 Range/Units 06:57 Sodium 143 (137-145) mmol/L Potassium 4.3 (3.5-5.1) mmol/L Chloride 118 H (98-107) mmol/L Carbon Dioxide 21 L (22-30) mmol/L BUN 30 H (7-17) mg/dL Creatinine 1.34 H (0.52-1.04) mg/dL Glucose 94 (74-99) mg/dL Calcium 8.0 L (8.4-10.2) mg/dL Adrenal panel 04/20/18 Range/Units 06:57 Sodium 143 (137-145) mmol/L Potassium 4.3 (3.5-5.1) mmol/L Chloride 118 H (98-107) mmol/L Carbon Dioxide 21 L (22-30) mmol/L BUN 30 H (7-17) mg/dL Creatinine 1.34 H (0.52-1.04) mg/dL Glucose 94 (74-99) mg/dL Calcium 8.0 L (8.4-10.2) mg/dL Total Bilirubin 0.4 (0.2-1.3) mg/dL AST 17 (14-36) U/L ALT 41 (9-52) U/L Alkaline Phosphatase 82 (38-126) U/L Total Protein 5.1 L (6.3-8.2) g/dL Albumin 2.3 L (3.5-5.0) g/dL Assessment and Plan Plan: The patient's abdomen is soft. There is no significant tenderness. We will follow with you.
[2018-04-20 20:43] LABS: Iron Saturation 35.48 (12.00-45.00)
[2018-04-20] MEDS: MELATONIN 3 MG TABLET PO SCH (21:19)
[2018-04-20] MEDS: DONEPEZIL 10 MG TAB PO SCH (21:19)
[2018-04-20] MEDS: CHOLECALCIFEROL 1,000 UNIT TAB PO SCH (21:19)
[2018-04-20] MEDS: CYANOCOBALAMIN 500 MCG TAB PO SCH (21:19)
--- NOTE | 2018-04-20 22:13 | PN ---
PROGRESS NOTE SUBJECTIVE: This is an 83-year-old white female. Continues to improve. She remains on IV Zosyn. Awaiting recommendations from Infectious Disease as to antibiotics to go home on. Surgical consult was done with Dr. Marie with increased white count colitis. ASSESSMENT: 1. Urinary retention. 2. Hypernatremia. 3. Dementia. 4. Urinary tract infection. 5. Positive urine culture. 6. Leukocytosis. 7. No surgical abdomen. Conservative measures in the custodial in the morning. Antibiotics per Dr. Garcia. MMODL / IJN: [id number] /
[2018-04-21] MEDS: HEPARIN SODIUM,PORCINE 5,000 UNIT/ML 1 ML VIAL SQ SCH ×4 (00:13→21:58)
[2018-04-21] MEDS: PIPERACILLIN-TAZOBACTAM 3.375 GM in DEXTROSE/WATER 1 50ML.BAG IVPB SCH ×3 (03:04→22:05)
[2018-04-21 07:08] LABS: Basophils # (A) 0.1 k/uL (0-0.2); Basophils % (A) 1 %; Eosinophils # (A) 0.4 k/uL (0-0.7); Eosinophils % (A) 4 %; HCT 24.6 % (34.0-46.0); HGB 7.8 gm/dL (11.4-16.0); Hypochromasia Slight; Lymphocytes # (A) 1.6 k/uL (1.0-4.8); Lymphocytes % (A) 19 %; MCHC 31.6 g/dL (31.0-37.0); MCV 91.7 fL (80.0-100.0); Mean Platelet Volume 8.4; Monocytes # (A) 0.5 k/uL (0-1.0); Monocytes % (A) 6 %; Neutrophils # (A) 5.5 k/uL (1.3-7.7); Neutrophils % (A) 68 %; Platelet Count 628 k/uL (150-450); RBC 2.68 m/uL (3.80-5.40); RDW 13.7 % (11.5-15.5); WBC 8.2 k/uL (3.8-10.6)
[2018-04-21 07:31] LABS: Calcium 8.1 mg/dL (8.4-10.2); Magnesium 1.5 mg/dL (1.6-2.3)
[2018-04-21] MEDS: SODIUM CHLORIDE 0.9% 1,000 ML IV SCH (08:02)
[2018-04-21] MEDS: IPRATROPIUM-ALBUTEROL 3 ML NEB INHALATION SCH ×4 (08:04→20:49)
--- NOTE | 2018-04-21 09:25 | P.PN ---
Subjective Progress Note Date: 04/21/18 83-year-old female seen this morning at bedside arousable to verbal stimuli opens eyes does not follow simple commands. Nursing reports the patient was incontinent of stool moderate amount this morning liquid no facial grimacing with palpitation to the abdomen white count 8.2 this morning. Hemoglobin 7.8. Objective - Vital Signs Vital signs: Vital Signs Temp 98.1 F 04/21/18 05:00 Pulse 74 04/21/18 08:16 Resp 15 04/21/18 07:23 BP 147/67 04/21/18 05:00 Pulse Ox 97 04/21/18 05:00 Intake & Output 04/20/18 04/21/18 04/21/18 18:59 06:59 18:59 Intake Total 550 Output Total 651 626 626 Balance -651 -76 -626 Weight 75.3 kg Intake: Intake, IV Titration 550 Amount Sodium Chloride 0.9% 1, 550 000 ml @ 50 mls/hr IV . Q20H [facility] Rx#:[id number] Output: Urine 650 625 625 Stool 1 1 1 Other: Voiding Method Indwelling Catheter Indwelling Catheter Indwelling Catheter # Bowel Movements 1 1 - Exam Physical exam 83-year-old female frail in appearance resting in bed opens eyes to verbal stimuli does not follow simple commands Lungs adequate air movement bilaterally Heart S1-S2 audible regular Abdomen soft nontender not distended incontinent of stool no nausea no vomiting Extremities no edema - Labs CBC & Chem 7: 04/21/18 06:57 04/21/18 06:57 Labs: Abnormal Lab Results - Last 24 Hours (Table) 04/20/18 04/21/18 04/21/18 Range/Units 06:57 06:57 06:57 RBC 2.68 L (3.80-5.40) m/uL Hgb 7.8 L (11.4-16.0) gm/dL Hct 24.6 L (34.0-46.0) % Plt Count 628 H (150-450) k/uL Chloride 116 H (98-107) mmol/L BUN 25 H (7-17) mg/dL Creatinine 1.25 H (0.52-1.04) mg/dL Calcium 8.1 L (8.4-10.2) mg/dL Magnesium 1.5 L (1.6-2.3) mg/dL TIBC 186 L (228-460) ug/dL Ferritin 606.7 H (10.0-291.0) ng/mL Assessment and Plan Assessment: Impression Dementia with no behavior disturbance Urinary retention status post Yost catheter placement Hypernatremia resolved UTI with urine culture positive for E. coli and Proteus on antibiotics Anemia. Iron Deficiency to be ruled out leukocytosis trending down infectious disease following Stool for C. diff negative negative for occult blood as well profound leukocytosis is improving Plan no evidence of an acute surgical abdomen at this time Conservative measures Full CODE STATUS noted Repeat an abdominal x-ray in the morning Agree with conservative measures in the residential no surgical intervention indicated Follow-up on pending abdominal x-ray The above impression and plan of care have been discussed and directed by signing physician. Leslie Ballesteros nurse practitioner acting as scribe for signing physician.
[2018-04-21] MEDS: METOPROLOL TARTRATE 12.5 MG TAB PO SCH ×2 (09:39→21:58)
[2018-04-21] MEDS: amLODIPine 10 MG TAB PO SCH (09:39)
--- NOTE | 2018-04-21 09:57 | P.PN ---
Subjective Patient is seen in follow-up for acute kidney injury. Renal function is improving with creatinine down to 1.25 today. She is currently being treated for E. coli and Proteus UTI. Also has a Yost catheter in place for urinary retention. She is maintained on normal saline at 50 mL an hour. Oral intake is fair. Denies chest pain or shortness of breath. Vital signs are stable. General: The patient appeared well nourished and normally developed. HEENT: Head exam is unremarkable. Neck is without jugular venous distension. LUNGS: Lungs are clear to auscultation and percussion. Breath sounds decreased. HEART: Rate and Rhythm are regular. First and second heart sounds normal. No murmurs, rubs or gallops. ABDOMEN: Abdominal exam reveals normal bowel sounds. Non-tender and non- distended. No evidence of peritonitis. EXTREMITITES: No clubbing, cyanosis, or edema. Objective - Vital Signs Vital signs: Vital Signs Temp 98.1 F 04/21/18 05:00 Pulse 74 04/21/18 08:16 Resp 15 04/21/18 07:23 BP 147/67 04/21/18 05:00 Pulse Ox 97 04/21/18 05:00 Intake & Output 04/20/18 04/21/18 04/21/18 18:59 06:59 18:59 Intake Total 550 Output Total 651 626 626 Balance -651 -76 -626 Weight 75.3 kg Intake: Intake, IV Titration 550 Amount Sodium Chloride 0.9% 1, 550 000 ml @ 50 mls/hr IV . Q20H [facility] Rx#:[id number] Output: Urine 650 625 625 Stool 1 1 1 Other: Voiding Method Indwelling Catheter Indwelling Catheter Indwelling Catheter # Bowel Movements 1 1 - Labs CBC & Chem 7: 04/21/18 06:57 04/21/18 06:57 Labs: Abnormal Lab Results - Last 24 Hours (Table) 04/20/18 04/21/18 04/21/18 Range/Units 06:57 06:57 06:57 RBC 2.68 L (3.80-5.40) m/uL Hgb 7.8 L (11.4-16.0) gm/dL Hct 24.6 L (34.0-46.0) % Plt Count 628 H (150-450) k/uL Chloride 116 H (98-107) mmol/L BUN 25 H (7-17) mg/dL Creatinine 1.25 H (0.52-1.04) mg/dL Calcium 8.1 L (8.4-10.2) mg/dL Magnesium 1.5 L (1.6-2.3) mg/dL TIBC 186 L (228-460) ug/dL Ferritin 606.7 H (10.0-291.0) ng/mL Assessment and Plan Plan: Assessment: 1. Nonoliguric acute kidney injury secondary to ATN secondary to hypotension and infection. Also component of urinary retention. Renal function improving with creatinine down to 1.25 today. Creatinine in August 2014 was 0.9. 2. UTI with urine culture positive for E. coli and Proteus maintained on antibiotics. 3. Dementia. 4. Hypernatremia. Resolved. 5. Mild metabolic acidosis secondary to acute kidney injury. Improved. 6. Hypomagnesemia from poor oral intake. 7. Urinary retention status post Yost catheter placement. Plan: Continue normal saline at 50 mL an hour. Encourage oral intake, including free water. Replace magnesium. 2 g IV today. Repeat electrolytes in the morning.
[2018-04-21] MEDS: PANTOPRAZOLE 40 MG/10 ML VIAL IVP SCH (10:21)
--- NOTE | 2018-04-21 10:47 | XR ---
EXAMINATION TYPE: XR abdomen 2V DATE OF EXAM: 04/21/2018 CLINICAL DATA: 83-year-old female with abdominal pain, PHH COMPARISON: None FINDINGS: Heart mildly enlarged. Septal lines are noted in the visualized lower lungs. Mild patchy left basilar opacity. No evidence for free intraperitoneal air. Scattered small colonic air-fluid levels. No dilated small bowel loops. No significant stool burden. Cholecystectomy clips. IMPRESSION: 1. Mild cardiomegaly and septal lines. Correlate for possible mild CHF. 2. No evidence for free air or bowel obstruction. 3. Scattered small air-fluid levels in the colon and prominent gassy bowel loops. Findings may relate to enteritis or ileus.
[2018-04-21] MEDS: MAGNESIUM SULFATE-D5W PMX 1 GM in DEXTROSE/WATER 1 100ML.BAG IVPB SCH ×2 (12:09→13:19)
[2018-04-21] MEDS: CHOLECALCIFEROL 1,000 UNIT TAB PO SCH (21:57)
[2018-04-21] MEDS: DONEPEZIL 10 MG TAB PO SCH (21:57)
[2018-04-21] MEDS: CYANOCOBALAMIN 500 MCG TAB PO SCH (21:57)
[2018-04-21] MEDS: MELATONIN 3 MG TABLET PO SCH (21:57)
[2018-04-22] MEDS: PIPERACILLIN-TAZOBACTAM 3.375 GM in DEXTROSE/WATER 1 50ML.BAG IVPB SCH ×3 (03:02→19:26)
[2018-04-22] MEDS: HEPARIN SODIUM,PORCINE 5,000 UNIT/ML 1 ML VIAL SQ SCH ×2 (08:01→15:21)
[2018-04-22] MEDS: PANTOPRAZOLE 40 MG/10 ML VIAL IVP SCH (08:01)
[2018-04-22] MEDS: amLODIPine 10 MG TAB PO SCH (08:01)
[2018-04-22] MEDS: METOPROLOL TARTRATE 12.5 MG TAB PO SCH ×2 (08:02→22:18)
[2018-04-22] MEDS: IPRATROPIUM-ALBUTEROL 3 ML NEB INHALATION SCH ×4 (08:17→20:43)
[2018-04-22 09:47] LABS: Calcium 8.2 mg/dL (8.4-10.2)
--- NOTE | 2018-04-22 09:51 | P.PN ---
Subjective Patient is seen in follow-up for acute kidney injury. Renal function is improving with creatinine down to 1.25 as of yesterday. She is currently being treated for E. coli and Proteus UTI. Also has a Yost catheter in place for urinary retention. She is maintained on normal saline at 50 mL an hour. Oral intake is fair. Denies chest pain or shortness of breath. No active complaints at this time. Vital signs are stable. General: The patient appeared well nourished and normally developed. HEENT: Head exam is unremarkable. Neck is without jugular venous distension. LUNGS: Lungs are clear to auscultation and percussion. Breath sounds decreased. HEART: Rate and Rhythm are regular. First and second heart sounds normal. No murmurs, rubs or gallops. ABDOMEN: Abdominal exam reveals normal bowel sounds. Non-tender and non- distended. No evidence of peritonitis. EXTREMITITES: No clubbing, cyanosis, or edema. Objective - Vital Signs Vital signs: Vital Signs Temp 98 F 04/22/18 05:00 Pulse 76 04/22/18 08:29 Resp 18 04/22/18 05:00 BP 129/69 04/22/18 05:00 Pulse Ox 96 04/22/18 05:00 Intake & Output 04/21/18 04/22/18 04/22/18 18:59 06:59 18:59 Intake Total 1020 Output Total 1676 651 Balance -1676 369 Intake: IV 900 0.9% Normal Saline 900 Oral 120 Output: Urine 1675 650 Uretheral (Yost) 650 Stool 1 1 Other: Voiding Method Indwelling Catheter Indwelling Catheter Indwelling Catheter # Voids 1 # Bowel Movements 2 - Labs CBC & Chem 7: 04/21/18 06:57 04/21/18 06:57 Labs: Microbiology - Last 24 Hours (Table) 04/19/18 04:05 Stool Culture - Preliminary Stool Assessment and Plan Plan: Assessment: 1. Nonoliguric acute kidney injury secondary to ATN secondary to hypotension and infection. Also component of urinary retention. Renal function improving with creatinine down to 1.25 as of yesterday. Creatinine in August 2014 was 0.9. 2. UTI with urine culture positive for E. coli and Proteus maintained on antibiotics. 3. Dementia. 4. Hypernatremia. Resolved. 5. Mild metabolic acidosis secondary to acute kidney injury. Improved. 6. Hypomagnesemia from poor oral intake. Status post replacement. 7. Urinary retention status post Yost catheter placement. 8. Benign hypertension. Controlled. Plan: Continue normal saline at 50 mL an hour. Encourage oral intake, including free water. Repeat electrolytes in the morning. Follow-up morning labs. Iron replete. Add Flomax. Consider urology consult for persistent urinary retention.
[2018-04-22 10:07] LABS: Magnesium 1.8 mg/dL (1.6-2.3); Potassium 4.4 mmol/L (3.5-5.1)
[2018-04-22] MEDS: SODIUM CHLORIDE 0.9% 1,000 ML IV SCH ×2 (11:07→14:51)
[2018-04-22] MEDS: TAMSULOSIN 0.4 MG CAP.ER.24H PO SCH (12:14)
--- NOTE | 2018-04-22 12:32 | P.PN ---
Subjective Progress Note Date: 04/22/18 83-year-old female seen at the bedside. Nursing at the bedside feeding patient. Nursing reports patient was incontinent of stool large amount of liquid this morning. Patient remains nonverbal spouse at the bedside. Electrolytes reviewed within normal limits no WBC this morning Objective - Vital Signs Vital signs: Vital Signs Temp 98.3 F 04/22/18 12:17 Pulse 61 04/22/18 12:17 Resp 18 04/22/18 12:17 BP 155/74 04/22/18 12:17 Pulse Ox 97 04/22/18 12:17 Intake & Output 04/21/18 04/22/18 04/22/18 18:59 06:59 18:59 Intake Total 1020 Output Total 1676 651 900 Balance -1676 369 -900 Intake: IV 900 0.9% Normal Saline 900 Oral 120 Output: Urine 1675 650 900 Uretheral (Yost) 650 900 Stool 1 1 Other: Voiding Method Indwelling Catheter Indwelling Catheter Indwelling Catheter # Voids 1 # Bowel Movements 2 2 - Exam Physical exam 83-year-old female frail in appearance resting in bed opens eyes to verbal stimuli does not follow simple commands nursing feeding patient appears in no acute distress Lungs adequate air movement bilaterally Heart S1-S2 audible regular Abdomen soft nontender not distended incontinent of stool nursing reports a large amount of liquid brown stool no nausea no vomiting Extremities no edema - Labs CBC & Chem 7: 04/21/18 06:57 04/22/18 08:24 Labs: Abnormal Lab Results - Last 24 Hours (Table) 04/22/18 Range/Units 08:24 Chloride 111 H (98-107) mmol/L BUN 22 H (7-17) mg/dL Creatinine 1.12 H (0.52-1.04) mg/dL Glucose 106 H (74-99) mg/dL Calcium 8.2 L (8.4-10.2) mg/dL Microbiology - Last 24 Hours (Table) 04/19/18 04:05 Stool Culture - Final Stool Assessment and Plan Assessment: Impression Dementia with no behavior disturbance Urinary retention status post Yost catheter placement Hypernatremia resolved UTI with urine culture positive for E. coli and Proteus on antibiotics Anemia. Iron Deficiency to be ruled out leukocytosis trending down infectious disease following Stool for C. diff negative negative for occult blood as well stool studies negative profound leukocytosis is improving Abdominal x-ray on April 21 scattered air-fluid levels; may relate to enteritis or ileus Plan no evidence of an acute surgical abdomen at this time Conservative measures Full CODE STATUS noted Repeat an abdominal x-ray in the morning Agree with conservative measures no surgical intervention indicated The above impression and plan of care have been discussed and directed by signing physician. Leslie Ballesteros nurse practitioner acting as scribe for signing physician.
--- NOTE | 2018-04-22 12:51 | PN ---
PROGRESS NOTE An 83-year-old white female, dementia, acute kidney injury, UTI with sepsis, urinary retention. Yost is in place. Started on Flomax for urine retention. Urology is consulted. Will send her to retirement on antibiotics per Infectious Disease recommendations. She has been treated for UTI for multiple days while in hospital. Await further recommendations. Otherwise, she is up sitting in the chair. She should be able to get up to the rehab center, maybe follow up with Urology as an outpatient. PSYCH: She answers questions, although she is confused. CARDIOVASCULAR: S1-S2. LUNGS: Clear. GI: Soft. Please see further orders. MMODL / IJN: [id number] /
--- NOTE | 2018-04-22 21:12 | DS ---
DISCHARGE SUMMARY DISCHARGE MEDICATIONS: 1. Lopressor 12.5 b.i.d. 2. Flomax 0.4 mg daily. 3. Xanax 0.25 daily p.r.n. 4. Tylenol 650 mg every 4 hours 6 hours p.r.n. for pain. 5. DuoNeb inhalation every 6 hours p.r.n. 6. Melatonin 3 mg at bedtime. 7. Losartan 50 b.i.d. 8. B12, 1000 mcg p.o. daily. 9. Vitamin D3, 2000 units daily. 10.Amlodipine 10 mg daily. 11.Aricept 10 mg daily. 12.DuoNeb updraft q.i.d. and p.r.n. 13.Melatonin 3 mg at bedtime. 14.Flomax 0.4 mg daily. 15.Antibiotics per Dr. Garcia. FOLLOWUP: 1. Follow up with Dr. Lawson. 2. Follow up with Urology. OTHER INSTRUCTIONS: 1. Continue with Yost catheter until seen in the office. 2. Continue Flomax until the patient sees Urology in the office. 3. Continue antibiotics per Dr. Garcia. 4. Continue medications as dictated above. HOSPITAL COURSE: The patient was admitted with dehydration, acute kidney injury and dementia, urinary retention, urosepsis, and metabolic encephalopathy secondary to above. The patient was given IV antibiotics for multiple days, Zosyn for positive blood cultures, positive urine cultures. The patient was then given fluids by renal physician. Renal function greatly improved, close to her baseline on discharge. She is low iron deficient. Her hemoglobin is down to 7.8. She may need to go on iron pill once a day. Her BUN is 22 and creatinine 1.12 on discharge. She will follow up in the shelter. Dr. Lawson will go from there. MMODL / IJN: [id number] /
[2018-04-22 21:23] VITALS: RESP 17
--- NOTE | 2018-04-22 21:35 | P.GSCN ---
History of Present Illness Consult date: 04/22/18 Reason for Consult: Urinary retention History of present illness: The patient is an 83-year-old female initially admitted through the emergency room on 04/09/2018 for evaluation of a low-grade fever and lethargy. She was noted to have a white blood count of 68,000, and elevated lactic acid and a BUN/ creatinine of 76/5.37. Urinalysis was consistent with an acute infection and the patient was presumed to be septic from this. She was started on Zosyn and transferred to the intensive care unit. She has gradually improved and her creatinine today was 1.25. Urine culture at the time of admission grew Escherichia coli and Proteus mirabilis and the patient is currently being treated with Bactrim as she was not bacteremic. A catheter was inserted when the patient came to the emergency room but the amount of urine that drained was not recorded. She has apparently remained in urinary retention since that time. I was asked to see the patient for further evaluation. Unfortunately the patient has dementia and is unable to provide any meaningful history. According to her daughter she did have some enuresis prior to this admission. She had been treated at [facility] earlier this fall and apparently was found to have a slight intracranial bleed which did not require treatment. Review of Systems ROS unobtainable: due to mental status Past Medical History Past Medical History: CVA/TIA, Hypertension, Sleep Apnea/CPAP/BIPAP Additional Past Medical History / Comment(s): BELLS PALSY, History of Any Multi-Drug Resistant Organisms: None Reported Past Surgical History: Appendectomy, Cholecystectomy, Hysterectomy, Orthopedic Surgery, Tonsillectomy Additional Past Surgical History / Comment(s): D&C, CATARACT Past Anesthesia/Blood Transfusion Reactions: Unable to Obtain Past Psychological History: Unable to Obtain Smoking Status: Unknown if ever smoked Past Alcohol Use History: None Reported Past Drug Use History: None Reported - Past Family History Father Family Medical History: Unable to Obtain Mother Family Medical History: Unable to Obtain Medications and Allergies Home Medications Medication Instructions Recorded Confirmed Type ALPRAZolam [Xanax] 0.25 mg PO DAILY PRN 04/09/18 04/09/18 History Acetaminophen Tab [Tylenol] 650 mg PO Q6H PRN MDD 3 GRAMS 04/09/18 04/09/18 History Cholecalciferol [Vitamin D3] 2,000 unit PO HS 10/05/18 10/05/18 History Cyanocobalamin (Vitamin B-12) 1,000 mcg PO HS 04/09/18 04/09/18 History [Vitamin B-12] Donepezil [Aricept] 10 mg PO HS 04/09/18 04/09/18 History Ipratropium-Albuterol Nebulize 3 ml INHALATION RT-Q4H 04/09/18 04/09/18 History [Duoneb 0.5 mg-3 mg/3 ml Soln] Losartan Potassium 50 mg PO BID 04/09/18 04/09/18 History Melatonin 3 mg PO HS 04/09/18 04/09/18 History amLODIPine [Norvasc] 10 mg PO DAILY 04/09/18 04/09/18 History Cefuroxime Axetil [Cefuroxime] 500 mg PO BID #14 tab 04/22/18 Rx Metoprolol Tartrate [Lopressor] 12.5 mg PO BID tab 04/22/18 Rx Tamsulosin [Flomax] 0.4 mg PO [id number] cap.er.24h 04/22/18 Rx Allergies Allergy/AdvReac Type Severity Reaction Status Date / Time ciprofloxacin [From Cipro] Allergy Unknown Verified 04/09/18 13:37 memantine [From Namenda] Allergy Unknown Verified 04/09/18 13:37 metronidazole [From Flagyl] Allergy Unknown Verified 04/09/18 13:37 Surgical - Exam Vital Signs Temp Pulse Resp BP Pulse Ox 97 F L 73 22 120/83 100 04/09/18 13:28 04/09/18 13:28 04/09/18 13:28 04/09/18 13:28 04/09/18 13:28 - General well developed, well nourished, no distress - Respiratory normal respiratory effort - Abdomen Abdomen: soft, non tender, no organomegaly - Neurologic disoriented, confused Results - Labs 04/21/18 06:57 04/22/18 08:24 Abnormal Lab Results - Last 24 Hours (Table) 04/22/18 Range/Units 08:24 Chloride 111 H (98-107) mmol/L BUN 22 H (7-17) mg/dL Creatinine 1.12 H (0.52-1.04) mg/dL Glucose 106 H (74-99) mg/dL Calcium 8.2 L (8.4-10.2) mg/dL Microbiology - Last 24 Hours (Table) 04/19/18 04:05 Stool Culture - Final Stool Diabetes panel 04/22/18 Range/Units 08:24 Sodium 139 (137-145) mmol/L Potassium 4.4 (3.5-5.1) mmol/L Chloride 111 H (98-107) mmol/L Carbon Dioxide 23 (22-30) mmol/L BUN 22 H (7-17) mg/dL Creatinine 1.12 H (0.52-1.04) mg/dL Glucose 106 H (74-99) mg/dL Calcium 8.2 L (8.4-10.2) mg/dL Calcium panel 04/22/18 Range/Units 08:24 Calcium 8.2 L (8.4-10.2) mg/dL Pituitary panel 04/22/18 Range/Units 08:24 Sodium 139 (137-145) mmol/L Potassium 4.4 (3.5-5.1) mmol/L Chloride 111 H (98-107) mmol/L Carbon Dioxide 23 (22-30) mmol/L BUN 22 H (7-17) mg/dL Creatinine 1.12 H (0.52-1.04) mg/dL Glucose 106 H (74-99) mg/dL Calcium 8.2 L (8.4-10.2) mg/dL Adrenal panel 04/22/18 Range/Units 08:24 Sodium 139 (137-145) mmol/L Potassium 4.4 (3.5-5.1) mmol/L Chloride 111 H (98-107) mmol/L Carbon Dioxide 23 (22-30) mmol/L BUN 22 H (7-17) mg/dL Creatinine 1.12 H (0.52-1.04) mg/dL Glucose 106 H (74-99) mg/dL Calcium 8.2 L (8.4-10.2) mg/dL Assessment and Plan Assessment: The source of the patient's urinary retention is not clear. It is possible that she was in retention prior to her admission as the amount of urine which drained from the bladder was not recorded. She did have some mild left hydronephrosis on a renal ultrasound performed on 04/10 which would be consistent with this. If the patient is going to return to a custodial I would suggest that the catheter remain in place until her transfer and that she have another voiding trial after that. She has been started on tamsulosin which may be of benefit unless her bladder was markedly overdistended prior to placement of the catheter.
[2018-04-22] MEDS: CYANOCOBALAMIN 500 MCG TAB PO SCH (22:18)
[2018-04-22] MEDS: CHOLECALCIFEROL 1,000 UNIT TAB PO SCH (22:18)
[2018-04-22] MEDS: DONEPEZIL 10 MG TAB PO SCH (22:18)
[2018-04-22] MEDS: MELATONIN 3 MG TABLET PO SCH (22:18)
--- NOTE | 2018-04-22 22:48 | P.PN ---
Subjective Progress Note Date: 04/22/18 This patient is a 83-year-old female who was seen yesterday in the intensive care unit for evaluation of altered mental status and lethargy. Patient has a history of recent evaluation for lethargy and confusion. She underwent a MRI of the brain on 04/02/2018 which was reviewed yesterday with the patient and her daughter at bedside. MRI did reveal small areas of intraventricular hemorrhage. Follow-up computed tomography scan of the brain was done on 2017 which was reviewed yesterday with the family and the daughter at bedside. There was no evidence of any new areas of acute intraventricular intracerebral hemorrhage. Patient was showing improvement in her overall mental status as well yesterday. The patient clinically still shows signs of a diffuse metabolic encephalopathy. She is arousable but still quite confused at times. Today she continues to show clinically more cognitive awareness. She is able to answer questions even more easily today as compared to yesterday. Patient does have multiple medical problems including urinary tract infection secondary to E. coli and Proteus mirabilis. She also has being treated for acute kidney injury. All of these findings are consistent with her clinical finding of a diffuse metabolic encephalopathy. She likely has some degree of underlying dementia which is been made worse due to her complex medical history. Would continue aggressive treatment of her urinary tract infection and sepsis which hopefully should improve her overall condition once aggressively treated. The patient is being given a breathing treatment this evening by respiratory therapy. She being treated with Douneb. She is doing about the same in terms of her mental status in that she is able to answer simple questions. She denies any focal weakness or headaches today on examination. We will continue to follow her progress closely during this admission. We will await further recommendations from multiple specialists at her seeing her. She is continuing to show improvement in her overall recovery from metabolic encephalopathy on admission. She is being followed closely by nephrology. She is being treated for urinary tract infection with Proteus. She is currently on multiple antibiotic coverage. The patient was seen today by urology and her case was reviewed. Patient source of this patient's urinary retention is still not clear. Ultrasound revealed mild left hydronephrosis which was done back on 12/2017. Nephrology is recommending catheter remain in place while she is returned to the detention. Neurologically the patient continues to show improvement in her overall mental status. She was more conversant with the nursing staff earlier today. She does have underlying dementia which remain stable at this time. We will continue to monitor progress during this admission very closely. Her overall prognosis at this time remains guarded. Objective - Vital Signs Vital signs: Vital Signs Temp 98.7 F 04/22/18 21:00 Pulse 84 04/22/18 21:00 Resp 17 04/22/18 21:00 BP 136/60 04/22/18 21:00 Pulse Ox 97 04/22/18 21:00 Intake & Output 04/22/18 04/22/18 04/23/18 06:59 18:59 06:59 Intake Total 1020 Output Total 651 900 Balance 369 -900 Intake: IV 900 0.9% Normal Saline 900 Oral 120 Output: Urine 650 900 Uretheral (Yost) 650 900 Stool 1 Other: Voiding Method Indwelling Catheter Indwelling Catheter # Voids 1 # Bowel Movements 1 - Exam Physical examination: PHYSICAL EXAMINATION: Patient is resting comfortably in bed. VITAL SIGNS: Blood pressure is [136/60]. Heart rate is [84]. Respiration is [17] . Temperature is [98.7]. HEENT: Head is atraumatic, neck is supple, there were no carotid bruits. CHEST: Lungs are clear to auscultation and percussion. CARDIAC: S1, S2 normal rate and rhythm. There is no murmur. ABDOMEN: Soft and nontender. Bowel sounds are present. EXTREMITIES: There is no pedal edema. Peripheral pulses are present. Neurological examination: Patient's neurological examination is unchanged from yesterday. The patient is examined today at bedside and appears to show signs of mild encephalopathy. Her encephalopathy continues to show slight improvement daily. She is currently being treated for COPD and has a breathing treatment ongoing at this time. - Labs CBC & Chem 7: 04/21/18 06:57 04/22/18 08:24 Labs: Abnormal Lab Results - Last 24 Hours (Table) 04/22/18 Range/Units 08:24 Chloride 111 H (98-107) mmol/L BUN 22 H (7-17) mg/dL Creatinine 1.12 H (0.52-1.04) mg/dL Glucose 106 H (74-99) mg/dL Calcium 8.2 L (8.4-10.2) mg/dL Microbiology - Last 24 Hours (Table) 04/19/18 04:05 Stool Culture - Final Stool Assessment and Plan (1) Acute metabolic encephalopathy Current Visit: Yes Status: Acute Code(s): G93.41 - METABOLIC ENCEPHALOPATHY SNOMED Code(s): 61044242 (2) Dementia Current Visit: Yes Status: Acute Code(s): F03.90 - UNSPECIFIED DEMENTIA WITHOUT BEHAVIORAL DISTURBANCE SNOMED Code(s): 97155470 (3) History of intraventricular hemorrhage Current Visit: Yes Status: Acute Code(s): Z86.79 - PERSONAL HISTORY OF OTHER DISEASES OF THE CIRCULATORY SYSTEM SNOMED Code(s): 346535171 (4) Acute renal failure (ARF) Current Visit: Yes Status: Acute Code(s): N17.9 - ACUTE KIDNEY FAILURE, UNSPECIFIED SNOMED Code(s): 02566834 Plan: This patient is a 83-year-old right-handed white female who was transferred from [facility] yesterday evening for evaluation of altered mental status and increasing confusion. Patient was seen in the emergency room at [facility] by Dr. Biggs. She was very obtunded there in the ER yesterday evening and was sent for a computed tomography scan of the brain. CAT scan of the brain results are as noted above. There was no evidence for acute stroke or hemorrhage. Patient was found to have evidence of a very elevated white count in the 60,000 range. Urine analysis revealed her to have a urinary tract infection as well. She was started on Zosyn and admitted to the hospital for further management. She was also found to have evidence of acute kidney injury with an initial serum creatinine of 5.3. She was admitted initially admitted to the medical floor however she continued to show obtunded patient and worsening mental status changes and she was transferred to the intensive care unit. She was stabilized in ICU and then transferred to the medical floor where she is currently residing. Patient still continues to show signs of a diffuse metabolic encephalopathy secondary to her urinary tract infection and sepsis. Will await further recommendations from infectious disease. Patient still seems to wax and wane in terms of her mental status. She does have underlying dementia as well. She is being treated for acute urinary tract infection with positive urine cultures for E. coli and Proteus mirabilis. Neurology was consulted today and their recommendations are as noted above. She is recovering nicely from her metabolic encephalopathy secondary to urinary tract infection. She does seem to follow all simple commands. She is undergoing breathing treatment today at bedside. This is been helpful for her overall breathing status. We will continue to monitor progress closely during this admission as she makes slow recovery to baseline. Patient is being considered for possible transfer to [facility] tomorrow. We will continue close neurological follow-up with the patient during this admission. Her overall prognosis at this time remains very guarded.
[2018-04-23] MEDS: HEPARIN SODIUM,PORCINE 5,000 UNIT/ML 1 ML VIAL SQ SCH ×2 (00:41→08:10)
[2018-04-23] MEDS: PIPERACILLIN-TAZOBACTAM 3.375 GM in DEXTROSE/WATER 1 50ML.BAG IVPB SCH (03:44)
[2018-04-23 05:12] VITALS: BP 134/64; TEMP 98.2
[2018-04-23] MEDS: IPRATROPIUM-ALBUTEROL 3 ML NEB INHALATION SCH ×2 (08:03→11:13)
[2018-04-23] MEDS: METOPROLOL TARTRATE 12.5 MG TAB PO SCH (08:10)
[2018-04-23] MEDS: PANTOPRAZOLE 40 MG/10 ML VIAL IVP SCH (08:10)
[2018-04-23] MEDS: amLODIPine 10 MG TAB PO SCH (08:10)
[2018-04-23] MEDS: TAMSULOSIN 0.4 MG CAP.ER.24H PO SCH (08:10)
[2018-04-23 09:23] LABS: Calcium 8.7 mg/dL (8.4-10.2); Magnesium 1.7 mg/dL (1.6-2.3); Potassium 4.3 mmol/L (3.5-5.1)
--- NOTE | 2018-04-23 09:45 | P.PN ---
Subjective Progress Note Date: 04/23/18 83-year-old female seen this morning sitting up in a chair nonverbal and does not follow simple commands needs assistance with feeding self. Currently questioning patient about abdominal pain indicates no no facial grimacing with palpitation to the abdominal wall indwelling Yost catheter in place nursing documents 1 stool this morning incontinent Objective - Vital Signs Vital signs: Vital Signs Temp 98.2 F 04/23/18 05:00 Pulse 76 04/23/18 08:12 Resp 17 04/23/18 05:00 BP 134/64 04/23/18 05:00 Pulse Ox 98 04/23/18 05:00 Intake & Output 04/22/18 04/23/18 04/23/18 18:59 06:59 18:59 Intake Total 650 Output Total 900 800 675 Balance -900 -150 -675 Weight 71 kg Intake: Intake, IV Titration 550 Amount Piperacillin-Tazobactam 3 100 .375 gm In Dextrose/Water 1 50ml.bag @ 12.5 mls/hr IVPB Q8H GUILLE Rx#: [id number] Sodium Chloride 0.9% 1, 450 000 ml @ 50 mls/hr IV . Q20H GUILLE Rx#:[id number] Oral 100 Output: Urine 900 800 675 Uretheral (Yost) 900 800 Other: Voiding Method Indwelling Catheter Indwelling Catheter Indwelling Catheter # Bowel Movements 1 1 - Exam Physical exam 83-year-old female frail in appearance sitting up in a chair awake nonverbal appears in no acute distress Lungs adequate air movement bilaterally Heart S1-S2 audible regular Abdomen soft nontender not distended incontinent of stool nursing reports a large amount of liquid brown stool no nausea no vomiting indwelling Yost catheter in place Extremities no edema - Labs CBC & Chem 7: 04/21/18 06:57 04/23/18 08:24 Labs: Abnormal Lab Results - Last 24 Hours (Table) 04/22/18 04/23/18 Range/Units 08:24 08:24 Chloride 111 H 112 H (98-107) mmol/L BUN 22 H 18 H (7-17) mg/dL Creatinine 1.12 H 1.26 H (0.52-1.04) mg/dL Glucose 106 H (74-99) mg/dL Calcium 8.2 L (8.4-10.2) mg/dL Microbiology - Last 24 Hours (Table) 04/19/18 04:05 Stool Culture - Final Stool Assessment and Plan Assessment: Impression Dementia with no behavior disturbance Urinary retention status post Yost catheter placement Hypernatremia resolved UTI with urine culture positive for E. coli and Proteus on antibiotics Anemia. Iron Deficiency to be ruled out leukocytosis trending down infectious disease following Stool for C. diff negative negative for occult blood as well stool studies negative profound leukocytosis is improving Abdominal x-ray on April 21 scattered air-fluid levels; may relate to enteritis or ileus Plan no evidence of an acute surgical abdomen at this time Conservative measures Full CODE STATUS noted We'll sign off re-eval as needed Agree with conservative measures no surgical intervention indicated The above impression and plan of care have been discussed and directed by signing physician. Leslie Ballesteros nurse practitioner acting as scribe for signing physician.
[2018-04-23 11:23] VITALS: PULSE 70
[2018-04-24] MEDS ORDERED: PANTOPRAZOLE SODIUM 40 MG GRANULE PKT PO SCH (07:30)
== END 2018-04-23 11:50 | DRG 871 ==
LOC: EC 13:27 → 6SEL 17:12 → 6ICU 04-10 02:54 → 5MS5E 04-12 01:44 → 3NMEDONC 04-18 12:29
PROVIDERS: ADMIT Family Medicine; ATTEND Family Medicine
DX: A41.51 Sepsis due to Escherichia coli [E. coli] (principal); N17.0 Acute kidney failure with tubular necrosis; G93.41 Metabolic encephalopathy; E87.2 Acidosis; G91.2 (Idiopathic) normal pressure hydrocephalus; N39.0 Urinary tract infection, site not specified; I42.0 Dilated cardiomyopathy; I50.22 Chronic systolic (congestive) heart failure; E87.0 Hyperosmolality and hypernatremia; I13.0 Hypertensive heart and chronic kidney disease with heart failure and stage 1 through stage 4 chronic kidney disease, or unspecified chronic kidney disease; K56.7 Ileus, unspecified; A41.59 Other Gram-negative sepsis; R65.20 Severe sepsis without septic shock; E86.0 Dehydration; I48.2 Chronic atrial fibrillation; E87.8 Other disorders of electrolyte and fluid balance, not elsewhere classified; E83.42 Hypomagnesemia; E86.1 Hypovolemia; J44.9 Chronic obstructive pulmonary disease, unspecified; N28.1 Cyst of kidney, acquired; N18.3 Chronic kidney disease, stage 3 (moderate); I44.7 Left bundle-branch block, unspecified; F03.90 Unspecified dementia, unspecified severity, without behavioral disturbance, psychotic disturbance, mood disturbance, and anxiety; D63.8 Anemia in other chronic diseases classified elsewhere; E87.6 Hypokalemia; E61.1 Iron deficiency; K52.9 Noninfective gastroenteritis and colitis, unspecified; K21.9 Gastro-esophageal reflux disease without esophagitis; I44.0 Atrioventricular block, first degree; G47.33 Obstructive sleep apnea (adult) (pediatric); G31.9 Degenerative disease of nervous system, unspecified; G51.0 Bell's palsy; D72.823 Leukemoid reaction; R32 Unspecified urinary incontinence; Z79.899 Other long term (current) drug therapy; Z86.73 Personal history of transient ischemic attack (TIA), and cerebral infarction without residual deficits; Z90.49 Acquired absence of other specified parts of digestive tract; Z90.710 Acquired absence of both cervix and uterus; Z98.49 Cataract extraction status, unspecified eye; Z99.89 Dependence on other enabling machines and devices; Z88.1 Allergy status to other antibiotic agents; Z88.8 Allergy status to other drugs, medicaments and biological substances
CPT/HCPCS: 36415; 36600; 51702; 70450; 71045; 74019; 74022; 76770; 80048; 80053; 81001; 82140; 82150; 82272; 82550; 82553; 82728; 82805; 83540; 83550; 83605; 83630; 83690; 83735; 83880; 84100; 84132; 84484; 85025; 87040; 87045; 87046; 87077; 87086; 87186; 87324; 87502; 93005; 93306; 94640; 94760; 96361; 96374; 99291